=== PATIENT | female | born 1945 | race Caucasian/White ===

== ENCOUNTER → 2018-03-20 01:14 | Outpatient (CLI) | payer MEDICARE, SELFPAY ==
--- NOTE | 2018-03-20 10:37 | DI.REPORT_ITS ---
SYMPTOM/DIAGNOSIS: SCREENING, Z12.31 MAMMOGRAM: Mammograms were interpreted according to the usual protocol including computer analysis with CAD system, tomosynthesis and C view imaging. The breast tissue is of moderate radiodensity. There is no evidence of a mass. There are no suspicious calcifications. There has been no significant interval change when compared with prior images. SUMMARY: No evidence of malignancy, Category 1 -B. Yearly screening mammography is recommended. SA ASSESSMENT OF FINDINGS: Negative. Category 1. Patient will receive a letter notifying them of these results. BI-RADS category B. There are scattered areas of fibroglandular density.
[2018-03-20 12:20] LABS: Abs Immature Grans 0.01 k/cumm (0.0-0.09); Absolute Basophil Count 0.04 k/cumm (0.0-0.2); Absolute Eosinophil Count 0.23 k/cumm (0.0-0.7); Absolute Lymphocyte Count 1.91 k/cumm (1.2-3.4); Absolute Monocyte Count 0.71 k/cumm (0.11-0.7); Absolute Neutrophil Count 4.34 k/cumm (1.2-6.7); Basophils % 0.6; Eosinophils % 3.2; HCT 37.8 % (36.0-46.0); HGB 12.2 g/dL (12.0-15.5); Immature Grans % 0.1; Lymphocytes % 26.4; Mean Corp. HGB Concentration 32.3 g/dL (32.0-36.0); Mean Corpuscular Hemoglobin 29.2 pg (27.0-33.0); Mean Corpuscular Volume 90.4 fL (80-95); Mean Platelet Volume 10.1 fL (8.0-11.0); Monocytes % 9.8; Neutrophils % 59.9; Platelet Count 280 x1000/uL (130-400); RBC 4.18 m/cumm (4.00-5.20); RBC Distribution Width 14.3 % (11.7-14.6); White Blood Cell Count 7.24 k/cumm (4.4-10.8)
[2018-03-20 12:26] LABS: Bilirubin Negative (Negative); Blood Negative (Negative); Clarity Clear; Glucose Negative (Negative); Ketones Negative (Negative); Leukocyte Esterase Trace (Negative); Nitrite Negative (Negative); Urobilinogen 0.2 EU/dL (Up TO 0.2); pH 6.5 (5-8)
[2018-03-20 12:30] LABS: Hemoglobin A1C 5.9 % (4.5-6.2)
[2018-03-20 12:38] LABS: Bacteria Few HPF (Negative); C & S Indicated? No/Sq. Contamination; Casts Negative LPF (Negative); Crystals Negative HPF (Negative); Epithelial Cells Many HPF (Negative); Mucus Moderate (Negative); RBC Negative (0-2); WBC 0-2 HPF (0-5)
[2018-03-20 13:33] LABS: ALT 22 U/L (12-78); AST 21 U/L (15-37); Albumin 3.6 g/dL (3.4-5.0); Alkaline Phosphatase 89 U/L (46-116); Anion Gap 6.8 mmol/L (3-11); BUN 11 mg/dL (7-18); Bilirubin, Total 0.3 mg/dL (0.2-1.0); CO2 29.2 mmol/L (21.0-32.0); CREATININE 0.88 mg/dL (0.55-1.02); Calcium 8.7 mg/dL (8.5-10.1); Chloride 101 mmol/L (98-107); Folate 15.4 ng/mL (8.6-20.0); Glucose 87 mg/dL (70-100); Potassium 4.6 mmol/L (3.5-5.1); Sodium 137 mmol/L (136-145); TSH (W/Ref FT4) 1.96 uIU/mL (0.358-3.74); Total Protein 6.7 g/dL (6.4-8.2)
== END ==
PROVIDERS: PCP Family Medicine; Visit Provider Family Medicine
DX: Z12.31 Encounter for screening mammogram for malignant neoplasm of breast (principal); E78.00 Pure hypercholesterolemia, unspecified; F32.9 Major depressive disorder, single episode, unspecified; R63.4 Abnormal weight loss; G47.00 Insomnia, unspecified; J21.9 Acute bronchiolitis, unspecified; K59.00 Constipation, unspecified; Z79.899 Other long term (current) drug therapy
CPT/HCPCS: 77063; 77067; 80053; 81003; 81015; 82746; 83036; 84443; 85025

== ENCOUNTER → 2018-05-01 08:59 | Outpatient (BNVA) | payer MEDICARE, SELFPAY | PROVIDERS: PCP Family Medicine; Visit Provider Student in an Organized Health Care Education/Training Program | DX: Z47.89 Encounter for other orthopedic aftercare (principal); M75.121 Complete rotator cuff tear or rupture of right shoulder, not specified as traumatic | CPT/HCPCS: 99213 ==

== ENCOUNTER 2018-08-07 11:35 | Outpatient (CLI) | payer MEDICARE, SELFPAY ==
[2018-08-07 12:59] LABS: Abs Immature Grans 0.04 k/cumm (0.0-0.09); Absolute Basophil Count 0.04 k/cumm (0.0-0.2); Absolute Eosinophil Count 0.12 k/cumm (0.0-0.7); Absolute Lymphocyte Count 1.97 k/cumm (1.2-3.4); Absolute Monocyte Count 1.35 k/cumm (0.11-0.7); Absolute Neutrophil Count 6.99 k/cumm (1.2-6.7); Basophils % 0.4; Eosinophils % 1.1; HCT 41.4 % (36.0-46.0); HGB 13.3 g/dL (12.0-15.5); Immature Grans % 0.4; Lymphocytes % 18.7; Mean Corp. HGB Concentration 32.1 g/dL (32.0-36.0); Mean Corpuscular Hemoglobin 28.6 pg (27.0-33.0); Mean Platelet Volume 10.3 fL (8.0-11.0); Monocytes % 12.8; Neutrophils % 66.6; Platelet Count 281 x1000/uL (130-400); RBC 4.65 m/cumm (4.00-5.20); RBC Distribution Width 14.2 % (11.7-14.6); White Blood Cell Count 10.51 k/cumm (4.4-10.8)
[2018-08-07 13:18] LABS: ALT 26 U/L (12-78); AST 23 U/L (15-37); Albumin 3.3 g/dL (3.4-5.0); Alkaline Phosphatase 93 U/L (46-116); Anion Gap 8.6 mmol/L (3-11); BUN 14 mg/dL (7-18); Bilirubin, Total 0.3 mg/dL (0.2-1.0); CO2 30.4 mmol/L (21.0-32.0); CREATININE 0.85 mg/dL (0.55-1.02); Calcium 8.8 mg/dL (8.5-10.1); Chloride 95 mmol/L (98-107); Glucose 85 mg/dL (70-100); Potassium 4.3 mmol/L (3.5-5.1); Sodium 134 mmol/L (136-145); TSH (W/Ref FT4) 2.16 uIU/mL (0.358-3.74); Total Protein 6.5 g/dL (6.4-8.2)
[2018-08-07 14:43] LABS: Bilirubin Negative (Negative); Blood Negative (Negative); Clarity Clear; Glucose Negative (Negative); Ketones Negative (Negative); Leukocyte Esterase Negative (Negative); Nitrite Negative (Negative); Specific Gravity 1.015 (1.005-1.025); Urobilinogen 0.2 EU/dL (Up TO 0.2); pH 8.5 (5-8)
[2018-08-08 06:13] LABS: Vitamin D 25 Total 62.3 ng/ml (30-100)
== END 2018-08-07 11:55 ==
PROVIDERS: PCP Family Medicine; Visit Provider Family Medicine
DX: R53.83 Other fatigue (principal); R10.9 Unspecified abdominal pain; R39.11 Hesitancy of micturition; Z79.52 Long term (current) use of systemic steroids; F32.9 Major depressive disorder, single episode, unspecified
CPT/HCPCS: 36415; 80053; 82306; 81003; 84443; 85025

== ENCOUNTER 2018-08-09 07:26 | Outpatient (CLI) | payer MEDICARE, SELFPAY | END 2018-08-09 07:46 | PROVIDERS: PCP Family Medicine; Visit Provider Family Medicine | DX: R69 Illness, unspecified (principal) ==

== ENCOUNTER 2018-08-09 07:27 | Outpatient (CLI) | payer MEDICARE, SELFPAY ==
--- NOTE | 2018-08-09 07:31 | DI.RAD_ITS ---
SYMPTOM/DIAGNOSIS: FATIGUE, BRONCHIOLITIS, ABD PAIN, R53.83, J21.9, R10.9 PA AND LATERAL CHEST: Pulmonary hyperinflation is demonstrated. There is no evidence of an infiltrate, mass or pleural effusion. The heart is not enlarged. The hilar structures, mediastinum and tracheal air column are intact. Note is incidentally made of mild degenerative changes involving the dorsal spine. SUMMARY: No evidence of acute cardiopulmonary disease.
--- NOTE | 2018-08-09 08:00 | DI.US_ITS ---
SYMPTOM/DIAGNOSIS: ABD PAIN, FATIGUE R10.9, ABD PAIN, R53.83 ABDOMINAL ULTRASOUND: The aorta and vena cava are normal. The liver is intact. The gallbladder is intact. There is no evidence of cholelithiasis or pericholecystic fluid or ductal dilatation. The pancreas and spleen are normal. The kidneys are unremarkable. The right kidney measures 9.4. The left kidney 9.4 cm There is no evidence of abdominal free fluid or a mass. SUMMARY: Normal abdominal ultrasound.
== END 2018-08-09 07:47 ==
PROVIDERS: PCP Family Medicine; Visit Provider Family Medicine
DX: R10.9 Unspecified abdominal pain (principal); R53.83 Other fatigue; J21.9 Acute bronchiolitis, unspecified
CPT/HCPCS: 71046; 76700

== ENCOUNTER 2019-02-27 02:23 | Outpatient (CLI) | payer MEDICARE, SELFPAY ==
[2019-02-27 14:43] LABS: ALT 23 U/L (12-78); AST 20 U/L (15-37); Albumin 3.7 g/dL (3.4-5.0); Alkaline Phosphatase 103 U/L (46-116); Anion Gap 8.4 mmol/L (3-11); BUN 15 mg/dL (7-18); Bilirubin, Total 0.5 mg/dL (0.2-1.0); CO2 29.6 mmol/L (21.0-32.0); CREATININE 0.83 mg/dL (0.55-1.02); Calcium 9.1 mg/dL (8.5-10.1); Chloride 101 mmol/L (98-107); Glucose 83 mg/dL (70-100); Potassium 4.5 mmol/L (3.5-5.1); Sodium 139 mmol/L (136-145); Total Protein 6.8 g/dL (6.4-8.2)
== END 2019-02-27 02:43 ==
PROVIDERS: PCP Family Medicine; Visit Provider Family Medicine
DX: R63.4 Abnormal weight loss (principal)
CPT/HCPCS: 36415; 80053

== ENCOUNTER 2019-05-27 08:51 | Emergency (ER) | payer MEDICARE, SELFPAY ==
[2019-05-27 08:54] VITALS: BP 133/86; PULSE 65; RESP 16; TEMP 36.5; O2SAT 100
[2019-05-27] MEDS: Cephalexin 500 MG CAP PO (09:27)
--- NOTE | 2019-05-27 09:28 | W.ED.GENAD ---
Discharge Plan Disposition Patient Disposition: HOME Condition: Stable Discharge Details Chief Complaint: Cellulitis Clinical Impression: Abscess of right index finger Primary Care Provider: Carrie Mejias ED Provider: Nicholas Macario Home Meds and New Rx's Prescriptions: New cephalexin [Keflex] 500 mg capsule 500 mg PO QID 7 Days Qty: 28 RF: 0 No Action aspirin [Aspirin Low-Strength] 81 mg tablet,chewable 81 mg PO DAILY RF: 0 Premarin 0.625 mg/gram cream 1 applic VG twice weekly PRN (Reason: vaginal dryness) Qty: 30 RF: 5 fluconazole 150 mg tablet 150 mg PO QWEEK Qty: 13 RF: 1 Shingrix Adjuvant Component-PF suspension 1 ml IM ONCE Qty: 0.5 RF: 1 zinc gluconate 50 mg tablet 50 mg PO DAILY RF: 0 cholecalciferol (vitamin D3) 4,000 unit capsule 4,000 unit PO DAILY RF: 0 mirtazapine 15 mg tablet 15 mg PO DAILY Qty: 30 RF: 11 multivitamin [One Daily] 1 EACH tablet 1 tab PO DAILY RF: 0 omega-3 fatty acids-fish oil 1 EACH capsule 1 cap PO DAILY RF: 0 PEAK FLOW METER RF: 0 meclizine 25 MG tablet 50 mg PO Q6H PRN Qty: 30 RF: 0 Narcan 4 MG spray,non-aerosol 4 mg NS PRN Qty: 2 RF: 0 polyethylene glycol 1000(bulk) 500 GM powder 17 gm PO DAILY PRNQty: 500 RF: 12 nystatin 60 GM powder 0 Topical BID Qty: 60 RF: 12 acetaminophen [Acetaminophen Extra Strength] 500 mg tablet 1,000 mg PO TID PRN PRN (Reason: pain) Qty: 100 RF: 6 oxybutynin chloride 10 mg tablet extended release 24hr 10 mg PO DAILY Qty: 90 RF: 12 ibuprofen 600 mg tablet 600 mg PO Q8H PRN PRN (Reason: pain) Qty: 60 RF: 6 fluticasone propion-salmeterol [Advair Diskus] 250-50 mcg/dose blister with device 1 inh Inhalation BID Qty: 3 RF: 4 fluoxetine [Prozac] 40 mg capsule 40 mg PO DAILY Qty: 90 RF: 4 Flovent HFA 110 mcg/actuation HFA aerosol inhaler 110 mcg Inhalation BID Qty: 3 RF: 4 omeprazole 20 mg tablet,delayed release (DR/EC) 20 mg PO DAILY Qty: 90 RF: 12 Estring 2 mg (7.5 mcg /24 hour) ring 1 vag ring VG Q3MOS Qty: 1 RF: 1 albuterol sulfate [ProAir HFA] 90 mcg/actuation HFA aerosol inhaler 2 puff Inhalation Q4H PRN Qty: 1 RF: 12 Discharge Instructions Instructions: Abscess (ED) Additional Instructions: You may do warm water soaks 3 times a day for the next 3 days. Take antibiotics as prescribed and for the full course/until all meds are gone. You may use [id number] acetaminophen as needed for pain. If not improving in the next 24 to 48 hours or for any significant worsening of symptoms please return immediately to the emergency department for reassessment. Otherwise you may follow-up with your primary care provider as needed Referrals: Carrie Mejias MD, [place] [Primary Care Provider] - Medical Decision Making Patient presenting to the emergency department for chief come concern of right index finger infection. Patient does state that she has been gardening recently and wearing gloves and last night she noticed her right index finger starting to swell and become reddened. Patient initially thought this was arthritis but had never had a flareup like this before. This morning finger has become more swollen and increased and redness causing her to come to the emergency department. Patient denies any other symptoms. Physical exam shows a fluctuant abscess to the superficial nature over the distal index finger mostly over the DIP. This does not seem to be involving the nail as much as the superficial soft tissue there. Patient does have an area that appears like it is getting ready to drain. I am concerned for a abscess and so did discuss with patient drainage of this. Patient was agreeable to this. 3 mL's of 1% lidocaine were utilized to perform a ring block. When appropriate level of anesthetic was achieved finger was cleansed with Betadine and sterile technique was utilized to drain fluctuant area with 18-gauge needle. Less than 1 mL was removed from the area that was a mix of purulent drainage and blood. Abscess group was sent. Patient placed on Keflex for 1 week. Return precautions discussed. After discussion of diagnosis and plan of care patient has no further needs, questions, or concerns and states clear understanding to return to the emergency department for any worsening symptoms. HPI General Mode of arrival: ambulatory. Date/Time Provider Initiated Documentation: 05/27/19 08:52. Limitations to Documentation: no limitations. Information obtained by: patient and RN notes reviewed. History of Present Illness 74 year old F presents to the emergency department with the chief complaint of Right index finger infection, described as moderate, with intensity rated at 8. Quality is described as aching, and is localized to the right and upper extremity. Patient started experiencing this day(s) (1) and it has been constant. No relieving factors improve symptom(s), No exacerbating factors reported . Patient notes no other symptoms.. Patient did receive the following treatments prior to arrival, none Related Data Home Medications Medication Instructions Recorded Confirmed Peak Flow Meter 10/29/12 03/25/19 multivitamin [One Daily] 1 tab PO DAILY 10/29/12 05/27/19 omega-3 fatty acids-fish oil 1 cap PO DAILY 10/29/12 05/27/19 meclizine 50 mg PO Q6H PRN #30 tab-cap 07/14/13 05/27/19 naloxone [Narcan Nasal [place]] 4 mg NS PRN #2 spray 11/12/17 05/27/19 nystatin 0 TOPICAL BID #60 gm 11/15/17 03/25/19 polyethylene glycol 1000(bulk) 17 gm PO DAILY PRN #500 gm 11/15/17 05/27/19 acetaminophen 500 mg tablet 1,000 mg PO TID PRN PRN #100 tab 05/22/18 05/27/19 aspirin 81 mg chewable tablet 81 mg PO DAILY tab 06/18/18 05/27/19 oxybutynin chloride 10 mg 10 mg PO DAILY #90 tab-cap 08/28/18 05/27/19 tablet,extended release 24 hr cholecalciferol (vitamin D3) 4,000 4,000 unit PO DAILY 09/04/18 05/27/19 unit capsule mirtazapine 15 mg tablet 15 mg PO DAILY #30 tab 09/04/18 05/27/19 zinc gluconate 50 mg tablet 50 mg PO DAILY tab 09/04/18 05/27/19 ibuprofen 600 mg tablet 600 mg PO Q8H PRN PRN #60 tab 11/19/18 05/27/19 fluoxetine 40 mg capsule 40 mg PO DAILY #90 cap 01/01/19 05/27/19 fluticasone 250 mcg-salmeterol 50 1 inh INHALATION BID #3 each 01/01/19 05/27/19 mcg/dose blistr powdr for inhalation fluticasone propionate 110 110 mcg INHALATION BID #3 inhaler 01/01/19 05/27/19 mcg/actuation HFA aerosol inhaler adjuvant AS01B (PF)vial 1 of 2 1 ml IM ONCE #0.5 ml 01/20/19 05/27/19 conjugated estrogens 0.625 mg/gram 1 applic VG twice weekly PRN #30 gm 01/20/19 05/27/19 vaginal cream fluconazole 150 mg tablet 150 mg PO QWEEK #13 tab 01/20/19 05/27/19 omeprazole 20 mg tablet,delayed 20 mg PO DAILY #90 tab-cap 02/06/19 05/27/19 release estradiol 1 vag ring VG Q3MOS #1 each 03/06/19 05/27/19 albuterol sulfate 90 mcg/actuation 2 puff INHALATION Q4H PRN #1 05/01/19 05/27/19 aerosol inhaler canister cephalexin [Keflex] 500 mg PO QID 7 Days #28 cap 05/27/19 Previous Rx's Medication Instructions Recorded naloxone [Narcan Nasal [place]] 4 mg NS PRN #2 spray 11/12/17 acetaminophen 500 mg tablet 1,000 mg PO TID PRN PRN #100 tab 05/22/18 oxybutynin chloride 10 mg 10 mg PO DAILY #90 tab-cap 08/28/18 tablet,extended release 24 hr mirtazapine 15 mg tablet 15 mg PO DAILY #30 tab 09/04/18 ibuprofen 600 mg tablet 600 mg PO Q8H PRN PRN #60 tab 11/19/18 fluoxetine 40 mg capsule 40 mg PO DAILY #90 cap 01/01/19 fluticasone 250 mcg-salmeterol 50 1 inh INHALATION BID #3 each 01/01/19 mcg/dose blistr powdr for inhalation fluticasone propionate 110 110 mcg INHALATION BID #3 inhaler 01/01/19 mcg/actuation HFA aerosol inhaler adjuvant AS01B (PF)vial 1 of 2 1 ml IM ONCE #0.5 ml 01/20/19 conjugated estrogens 0.625 mg/gram 1 applic VG twice weekly PRN #30 gm 01/20/19 vaginal cream fluconazole 150 mg tablet 150 mg PO QWEEK #13 tab 01/20/19 omeprazole 20 mg tablet,delayed 20 mg PO DAILY #90 tab-cap 02/06/19 release estradiol 1 vag ring VG Q3MOS #1 each 03/06/19 albuterol sulfate 90 mcg/actuation 2 puff INHALATION Q4H PRN #1 05/01/19 aerosol inhaler canister cephalexin [Keflex] 500 mg PO QID 7 Days #28 cap 05/27/19 Allergies Allergy/AdvReac Type Severity Reaction Status Date / Time tuberculin, purified protein Allergy Unknown Unverified 05/27/19 08:59 deriva bupropion AdvReac AGITATION Unverified 03/25/19 13:24 codeine AdvReac NAUSEA/VOMI Unverified 03/25/19 13:24 TING General Stated Complaint: Cellulitis MEI: 4 Review of Systems Constitutional Constitutional: Denies chills and Denies fever(s) Musculoskeletal Musculoskeletal: Reports as per HPI, Reports joint swelling and Reports limited range of motion Integumentary/Breasts Skin/Breast: Reports erythema and Denies rash FORMERLY [facility], 1928–1983 Medical History Abnormal laboratory test (Resolved) decreased cortisol w/retesting normal Atrophic vaginitis (Chronic) Benign neoplasm of skin of perineum (Resolved) benign lesion-resolved Bronchiolitis (Chronic) 02/11/16-[facility] 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 AVOID AZITHROMAX - SEE NOTE VJ 06/30/16 SOB Bruising (Chronic 02/22/15) Complete tear of right rotator cuff (Chronic 12/12/17) Constipation (Chronic 08/10/14) Depressive disorder Depressive disorder (Chronic) Ear problem (Resolved 12/03/07) PERFERATED EARDRUM Fatigue (Chronic 07/12/02) Multiple extensive work ups without etiology Hypercholesterolemia (Chronic) Insomnia Insomnia (Chronic) Low back pain Low back pain (Chronic 01/02/17) Malignant neoplasm of cervix uteri (Resolved) hyst;single ovary remains 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) Primary malignant neoplasm of cervix (Resolved) Seborrheic keratoses (Chronic 01/11/16) LEFT CHEEK, SCAPULA Tear of left supraspinatus tendon (Chronic 09/04/17) mri 09/03/17 Urinary frequency (Chronic 08/17/17) Weight loss (Chronic 03/12/18) Surgical History Abdominal hysterectomy single ovary remains Appendectomy Colonoscopy - MAC (~2006) Colonoscopy - MAC (10/05/17) H/O bilateral salpingo-oophorectomy (Resolved) HERNIA REPAIR Ligation of fallopian tube BSO Open Carpal Tunnel release S/P abdominal hysterectomy (Resolved) one ovary remains S/P appendectomy (Resolved) S/P carpal tunnel release (Resolved) S/P hernia repair (Resolved) Status post abdominal hysterectomy (Resolved) Status post appendectomy (Resolved) Status post carpal tunnel release (Resolved) Status post hernia repair (Resolved) Family History Mother , 2 Emphysema of lung Stroke COPD (chronic obstructive pulmonary disease) Asthma Father , 85 Lung cancer Brother , 85 COPD (chronic obstructive pulmonary disease) Lung cancer Maternal Grandfather No problems noted. Paternal Grandfather No problems noted. Maternal Grandmother No problems noted. Paternal Grandmother No problems noted. Brother , 70 Diabetes Colon cancer Sister , 80 Diabetes Lung cancer Sister , 81 Cancer Social History Smoking/Tobacco Use Status: Never Second Hand Exposure: No Alcohol Intake: current Alcohol Intake frequency: a few times a week Alcohol type: wine Drug use: Never Substance use type: does not use Household members: spouse Housing: house Pets and animals: Yes Pets and animals: cat(s) Sexually active: Yes Do you think of yourself as: straight/heterosexual Current gender identity: decline to answer What is your relationship status?: How often do you talk on the phone with friends or family?: decline to answer How often do you get together with friends or relatives?: twice per week How often do you attend rastafarian or latter day services?: decline to answer Do you belong to any clubs or organized social groups?: no Panel score (0-1 are the most socially isolated patients): 1 What type of physical activity do you participate in: walking Duration: decline to answer Frequency: 3-4 times per week Annelise/Gnosticist: Gnosticist Special annelise needs: No Seatbelt use: always Drive intox or ride w/intox charter coach driver: No Do you feel safe at home: Yes Do you feel safe in your relationship?: Yes Exam Const General: cooperative, no acute distress and not ill appearing Orientation: alert, awake and oriented x3 Resp Effort & Inspection: normal respiratory effort, able to speak in complete sentences and no respiratory distress Cardio Rate: regular rate Rhythm: regular rhythm Extrem Right upper extremity: hand Details: normal capillary refill, abnormal ROM of finger Details: pain with active ROM Location: of the 2nd digit and pain with passive ROM Location: of the 2nd digit, warmth Location: of the 2nd digit Location: at the DIP joint, swelling Location: of the 2nd digit Location: at the DIP joint and other (Fluctuant abscess with area of open drainage to superficial dorsal aspect of distal finger mostly over DIP) Course Vital Signs Vital signs: Vital Signs Temperature 36.5 C 05/27/19 08:54 Pulse 65 05/27/19 08:54 Respiratory Rate 16 05/27/19 08:54 Blood Pressure 133/86 05/27/19 08:54 Pulse Oximetry 100 05/27/19 08:54 Temperature 36.5 C 05/27/19 08:54 Temperature Source Tympanic 05/27/19 08:54 Pulse 65 05/27/19 08:54 Respiratory Rate 16 05/27/19 08:54 Respiratory Effort Non-Labored 05/27/19 08:58 Blood Pressure 133/86 05/27/19 08:54 Blood Pressure Position Sitting 05/27/19 08:54 Pulse Oximetry 100 05/27/19 08:54 Oxygen Delivery Method Room Air 05/27/19 08:54 Oxygen Flow Rate 0 05/27/19 08:54 Pain Level 8 05/27/19 08:54 Lab/Test Results Lab/Test Results: 05/27/19 09:27 Finger - Right First Digit Abscess Culture - Pending 05/27/19 09:27 Finger - Right First Digit Gram Stain - Pending
[2019-05-27 09:37] VITALS: BP 133/86; PULSE 65; RESP 16; TEMP 36.5; O2SAT 100
== END 2019-05-27 09:31 | disposition home or self-care (01) ==
PROVIDERS: Emergency Provider Nurse Practitioner Family; PCP Family Medicine
DX: L02.511 Cutaneous abscess of right hand (principal)
CPT/HCPCS: 99283; 87070; 87205

== ENCOUNTER 2019-11-12 14:32 | Outpatient (CLI) | payer MEDICARE, SELFPAY ==
[2019-11-15 09:54] LABS: SARS-CoV-2 RNA Undetected (Undetected); SARS-CoV-2 Specimen Source Nasopharynx
== END 2019-11-12 14:52 ==
PROVIDERS: PCP Family Medicine; Visit Provider Family Medicine
DX: Z03.818 Encounter for observation for suspected exposure to other biological agents ruled out (principal)
CPT/HCPCS: U0003

== ENCOUNTER 2020-05-06 02:05 | Outpatient (CLI) | payer MEDICARE, SELFPAY ==
--- NOTE | 2020-05-06 07:15 | DI.DEXA_ITS ---
EXAM: XR DEXA BONE DENSITY W/WO HALLE CLINICAL HISTORY: osteoporosis,m81.0 TECHNIQUE: COMPARISON: Prior examination is dated 10/28/2007 FINDINGS: Lateral Spine Image: Unremarkable. No compression deformities identified. Left hip: Total T-Score: -1.6. This compares with a 0.0 on the prior examination. Total Z-Score: 0.1 T- and Z-scores: Findings consistent with osteopenia and increased fracture risk. Lumbar Spine: Total T-Score: 0.6. This compares with a 0.3 on the prior examination. Total Z-Score: 2.9 T- and Z-scores: Within normal limits. IMPRESSION: No evidence of osteoporosis.
--- NOTE | 2020-05-06 09:35 | DI.MAMMO_ITS ---
EXAM: MG MAMMO SCREENING CLINICAL HISTORY: screening,z12.39 TECHNIQUE: Bilateral full field digital CC and MLO mammographic images were obtained with 3D tomosyn thesis and utilizing computer aided detection (CAD). COMPARISON: Available for comparison. FINDINGS: Masses/Architectural Distortion: None seen. Microcalcifications: No suspicious pleomorphic-type are seen. Skin Thickening/Nipple Retraction: None. IMPRESSION: 1. No significant interval change with no specific features of malignancy noted. 2. Unless there is more urgent need, screening mammography is recommended, as per [employer] guidelines. BI-RADS Category 1 - Negative Breast Density - Category B - Scattered areas of fibroglandular density A negative radiographic report should not delay biopsy if a dominant or clinically suspicious mass is present. Up to ten percent of cancers are not identified on mammography. A negative report may reinforce clinical impression. Adenosis and dense breasts may obscure an underlying neoplasm. False positive reports average 6 to 10%. Patient will receive a letter notifying them of these results.
== END 2020-05-06 02:25 ==
PROVIDERS: PCP Family Medicine; Visit Provider Family Medicine
DX: Z12.31 Encounter for screening mammogram for malignant neoplasm of breast (principal); M81.0 Age-related osteoporosis without current pathological fracture
CPT/HCPCS: 77063; 77067; 77080

== ENCOUNTER 2020-08-20 09:01 | Outpatient (CLI) | payer MEDICARE, SELFPAY ==
[2020-08-21 15:32] LABS: COVID-19 RT-PCR UVMMC Result Negative (Negative)
== END 2020-08-20 09:21 ==
PROVIDERS: PCP Family Medicine; Visit Provider Family Medicine
DX: Z20.828 Contact with and (suspected) exposure to other viral communicable diseases (principal)
CPT/HCPCS: U0003

== ENCOUNTER 2021-03-21 13:01 | Outpatient (REF) | payer MEDICARE, SELFPAY ==
[2021-03-21 19:33] LABS: Abs Immature Grans 0.03 10^3/uL (0.0-0.06); Absolute Basophil Count 0.07 10^3/uL (0.0-0.2); Absolute Eosinophil Count 0.26 10^3/uL (0.0-0.7); Absolute Lymphocyte Count 1.77 10^3/uL (1.2-3.4); Absolute Monocyte Count 0.74 10^3/uL (0.1-0.8); Absolute Neutrophil Count 3.89 10^3/uL (1.2-6.7); Eosinophils % 3.8; HCT 42.9 % (36.0-46.0); HGB 13.3 g/dL (11.2-15.7); Immature Grans % 0.4; Lymphocytes % 26.2; MCH 27.3 pg (27.0-33.0); MCV 87.9 fL (80-95); Monocytes % 10.9; Neutrophils % 57.7; Nucleated RBC 0 %; Platelet Count 286 10^3/uL (130-400); RBC 4.88 10^6/uL (3.93-5.22); RDW 13.7 % (11.7-14.6); RDW-SD 44.2 fL; WBC 6.76 10^3/uL (4.4-10.8)
[2021-03-21 19:34] LABS: Bilirubin Negative (Negative); Blood Negative (Negative); Clarity Sl Cloudy (Clear); Glucose Negative (Negative); Ketones Negative (Negative); Leukocyte Esterase Trace (Negative); Nitrite Negative (Negative); Urobilinogen 0.2 EU/dL (Up TO 0.2); pH 6.5 (5-8)
[2021-03-21 19:43] LABS: ALT 19 U/L (14-59); AST 20 U/L (15-37); Albumin 3.6 g/dL (3.4-5.0); Alkaline Phosphatase 100 U/L (46-116); Anion Gap 6.2 mmol/L (3-11); BUN 13 mg/dL (7-18); Bilirubin, Total 0.3 mg/dL (0.2-1.0); CO2 29.8 mmol/L (21.0-32.0); CREATININE 0.8 mg/dL (0.55-1.02); Calcium 8.9 mg/dL (8.5-10.1); Chloride 101 mmol/L (98-107); Glucose 91 mg/dL (74-106); Potassium 4.4 mmol/L (3.5-5.1); Sodium 137 mmol/L (136-145); Total Protein 6.8 g/dL (6.4-8.2)
[2021-03-21 19:46] LABS: Bacteria Many HPF (Negative); C & S Indicated? C&S Done As Ordered; Casts Negative LPF (Negative); Crystals Negative HPF (Negative); Epithelial Cells Few HPF (Negative); Mucus Negative (Negative); RBC 0-2 HPF (0-2)
[2021-03-22 14:57] LABS: COVID-19 RT-PCR UVMMC Result Negative (Negative)
== END 2021-03-21 13:02 | disposition home or self-care (01) ==
LOC: LBN 13:01
PROVIDERS: PCP Family Medicine; Visit Provider Nurse Practitioner Family
DX: R53.83 Other fatigue (principal); N39.0 Urinary tract infection, site not specified; Z20.822 Contact with and (suspected) exposure to COVID-19
CPT/HCPCS: 80053; U0003; U0005; 81003; 81015; 85025; 87086

== ENCOUNTER 2021-03-21 19:44 | Observation (INO) | payer MEDICARE, SELFPAY ==
[2021-03-21] VITALS (9 sets, daily range): BP systolic 133–169; BP diastolic 68–111; PULSE 59–71; RESP 12–19; TEMP 36.2–36.4; O2SAT 95–98
--- NOTE | 2021-03-21 20:00 | DI.CT_ITS ---
Exam(s) CT ABDOMEN PELVIS W EXAM: CT ABDOMEN PELVIS W CLINICAL HISTORY: lower abdomen pain and n/v. TECHNIQUE: Imaging Protocol: Axial computed tomography images with coronal and sagittal reformatted images were created and reviewed CONTRAST MATERIAL: Intravenous: Omnipaque 350 Contrast volume:100 ml Oral: / no COMPARISON: CT CHEST FOR PULMONARY EMBOLUS from 01/04/2016 FINDINGS: ABDOMEN: Lung Bases: Scarring right lower lobe. Liver: Normal density. No measurable mass. Gallbladder and biliary tract: No radiodense calculus or dilation. Pancreas: Moderately atrophic. Normal density, no abnormal calcifications or inflammatory process. Spleen: Normal. Kidneys: Normal size, contour and axis. No radiodense stones or obstructive uropathy. No masses seen. Adrenal glands: No masses seen. Abdominal Aorta: Abdominal portion non-dilated. Moderate atherosclerotic changes. Stomach: Distended with food and fluid. Duodenum unremarkable. PELVIS: Bladder: No gross wall thickening. No calculi.No focal mass. Bowel: No obstruction or bowel wall thickening. Status post appendectomy. Peritoneal cavity: No ascites, collection or mesenteric inflammatory response. Bones: Degenerative changes lumbar spine. Reproductive organs: Status post hysterectomy. Questionable vaginal wall thickening. Clinical corre lation is recommended. Lymph nodes: Unremarkable. Impression: Gastric distension. Unremarkable small bowel and colon. Questionable vaginal wall thickening. Clinical correlation is recommended. RADIATION DOSE DELIVERED: 677.82mGy.cm Total DLP DATA REPOSITORY: All CT scans at this facility are submitted to the National Radiology Data Registry (NRDR) Dose Index Registry (DIR) with the [employer] (ACR). RADIATION OPTIMIZATION: All CT scans at this facility use at least one of these dose optimization te chniques: automated exposure control; mA and/or kV adjustment per patient size (includes targeted exa ms where dose is matched to clinical indication); or iterative reconstruction.
--- NOTE | 2021-03-21 20:11 | ED.GENADUL_ITS ---
Discharge Plan Disposition Condition: Stable Discharge Details Chief Complaint: GenMedical Clinical Impression: Hyponatremia, Abdominal pain Primary Care Provider: Carrie Mejias ED Provider: Mj Rowell [place] Meds and New Rx's Prescriptions: No Action aspirin [Adult Low Dose Aspirin] 81 mg tablet,delayed release (DR/EC) 81 mg PO DAILY RF: 0 mirtazapine 15 mg tablet 15 mg PO DAILY RF: 0 amoxicillin-pot clavulanate [Augmentin] 875-125 mg tablet 1 tab PO BID Qty: 14 RF: 0 melatonin 5 mg capsule 5 mg PO HS PRN (Reason: insomnia) Qty: 30 RF: 1 fluticasone propionate [Flonase Allergy Relief] 50 mcg/actuation spray,suspension 1 spray intranasal DAILY Qty: 16 RF: 0 cholecalciferol (vitamin D3) 4,000 unit capsule 4,000 unit PO DAILY RF: 0 fluconazole 150 mg tablet 150 mg PO QWEEK PRNRF: 0 omega-3 fatty acids-fish oil 1 EACH capsule 1 cap PO DAILY RF: 0 PEAK FLOW METER RF: 0 meclizine 25 MG tablet 50 mg PO Q6H PRN Qty: 30 RF: 0 polyethylene glycol 1000(bulk) 500 GM powder 17 gm PO DAILY PRNQty: 500 RF: 12 albuterol sulfate [ProAir HFA] 90 mcg/actuation HFA aerosol inhaler 2 puff Inhalation Q4H PRN Qty: 1 RF: 12 estradiol [Yuvafem] 10 mcg tablet 10 mcg VG .3 times weekly Qty: 36 RF: 4 ibuprofen 600 mg tablet 600 mg PO Q8H PRN PRN (Reason: pain) Qty: 60 RF: 6 oxybutynin chloride 10 mg tablet extended release 24hr 10 mg PO DAILY Qty: 90 RF: 12 fluticasone propion-salmeterol [Advair Diskus] 250-50 mcg/dose blister with device 1 inh Inhalation BID Qty: 3 RF: 4 Flovent HFA 110 mcg/actuation HFA aerosol inhaler 110 mcg Inhalation BID Qty: 3 RF: 4 fluoxetine [Prozac] 40 mg capsule 40 mg PO DAILY Qty: 90 RF: 4 mirtazapine 15 mg tablet 15 mg PO DAILY Qty: 30 RF: 11 omeprazole 20 mg tablet,delayed release (DR/EC) 20 mg PO DAILY Qty: 90 RF: 12 acetaminophen [Acetaminophen Extra Strength] 500 mg tablet 1,000 mg PO TID PRN PRN (Reason: pain) Qty: 100 RF: 6 Discharge Instructions Additional Instructions: your repeat sodium level was normal stop taking the augmentin follow up with your primary care provider within 1 week if you feel more ill, have persistent vomit or severe worsening pain return to the emergency department Medical Decision Making 75 yo female with hx of hysterectomy and appendectomy, insomnia, hld, who started her first dose of augmentin today after being diagnosed with sinusitis, comes in with abdomen pain, n/v starting a few hours ago. She denies having this pain when she was seen at the medical center earlier. Denies chest pain, states when she has increase in pain it takes her breath away but denies shortness of breath otherwise. She does have tenderness throughout the lower abdomen no upper abdomen tenderness. Concern for diverticulitis vs small bowel obstruction, will obtain labs and ct to further evaluate. ct shows no acute findings and discussed non emergent findings with her which will need outpatient follow up, labs remarkable of sodium of 120 and was normal earlier today. She has been drinking a significant amount of water. Pain significantly improved, has mild pain to deep palpation to the right lower abdomen on exaxm. Spoke with hospitalist who will see the patient but asked a repeat bnp be drawn in the mean time to see if this sodium level is accurate Differential Diagnosis Differential Diagnosis: small bowel obstruction, colitis, diverticulitis Medical Records Medical records reviewed: Yes I reviewed the patient's medical records. Imaging Data Radiologic Study: Attestation: I personally reviewed and interpreted this imaging study as follows: Imaging: CT Scan Radiologist's impression: IMPRESSION: 1. New area or lesion of diminished attenuation/enhancement about falciform ligament. Correlate with liver ultrasound. 2. Prominent vagina with irregularity of mucosal surface. Correlate clinically and with ultrasound. 3. Pancreatic atrophy. Lab Data Lab results reviewed: Yes I reviewed the patient's lab results. HPI General Mode of arrival: wheelchair . Date/Time Provider Initiated Documentation: 03/21/21 19:51 . Limitations to Documentation: no limitations . Information obtained by: patient . History of Present Illness 75 year old F presents to the emergency department with the chief complaint of abdomen pain, described as moderate and severe, Quality is described as sharp, and is localized to the abdomen. Patient reports no radiation. Patient started experiencing this hour(s) (4) and it has been constant. No relieving factors improve symptom(s), No exacerbating factors reported . Patient notes nausea/vomiting. Related Data Home Medications Medication Instructions Recorded Confirmed Peak Flow Meter 10/29/12 03/21/21 omega-3 fatty acids-fish oil 1 cap PO DAILY 10/29/12 03/21/21 meclizine 50 mg PO Q6H PRN #30 tab-cap 07/14/13 03/21/21 polyethylene glycol 1000(bulk) 17 gm PO DAILY PRN #500 gm 11/15/17 03/21/21 cholecalciferol (vitamin D3) 100 4,000 unit PO DAILY 09/04/18 03/21/21 mcg (4,000 unit) capsule fluconazole 150 mg tablet 150 mg PO QWEEK PRN tab 03/30/20 03/21/21 albuterol sulfate 90 mcg/actuation 2 puff INHALATION Q4H PRN #1 05/26/20 03/21/21 aerosol inhaler canister estradiol 10 mcg vaginal tablet 10 mcg VG .3 times weekly #36 tab 07/12/20 03/21/21 ibuprofen 600 mg tablet 600 mg PO Q8H PRN PRN #60 tab 07/12/20 03/21/21 oxybutynin chloride 10 mg 10 mg PO DAILY #90 tab-cap 07/12/20 03/21/21 tablet,extended release 24 hr fluoxetine 40 mg capsule 40 mg PO DAILY #90 cap 02/08/21 03/21/21 fluticasone 250 mcg-salmeterol 50 1 inh INHALATION BID #3 each 02/08/21 03/21/21 mcg/dose blistr powdr for inhalation fluticasone propionate 110 110 mcg INHALATION BID #3 inhaler 02/08/21 03/21/21 mcg/actuation HFA aerosol inhaler mirtazapine 15 mg tablet 15 mg PO DAILY #30 tab 02/08/21 03/21/21 omeprazole 20 mg tablet,delayed 20 mg PO DAILY #90 tab-cap 02/08/21 03/21/21 release acetaminophen 500 mg tablet 1,000 mg PO TID PRN PRN #100 tab 02/14/21 03/21/21 amoxicillin 875 mg-potassium 1 tab PO BID #14 tab 03/21/21 03/21/21 clavulanate 125 mg tablet aspirin 81 mg tablet,delayed 81 mg PO DAILY 03/21/21 03/21/21 release fluticasone propionate 50 1 spray INTRANASAL DAILY #16 g 03/21/21 03/21/21 mcg/actuation nasal spray,suspension melatonin 5 mg capsule 5 mg PO HS PRN #30 cap 03/21/21 03/21/21 mirtazapine 15 mg tablet 15 mg PO DAILY 03/21/21 03/21/21 Previous Rx's Medication Instructions Recorded albuterol sulfate 90 mcg/actuation 2 puff INHALATION Q4H PRN #1 05/26/20 aerosol inhaler canister estradiol 10 mcg vaginal tablet 10 mcg VG .3 times weekly #36 tab 07/12/20 ibuprofen 600 mg tablet 600 mg PO Q8H PRN PRN #60 tab 07/12/20 oxybutynin chloride 10 mg 10 mg PO DAILY #90 tab-cap 07/12/20 tablet,extended release 24 hr fluoxetine 40 mg capsule 40 mg PO DAILY #90 cap 02/08/21 fluticasone 250 mcg-salmeterol 50 1 inh INHALATION BID #3 each 02/08/21 mcg/dose blistr powdr for inhalation fluticasone propionate 110 110 mcg INHALATION BID #3 inhaler 02/08/21 mcg/actuation HFA aerosol inhaler mirtazapine 15 mg tablet 15 mg PO DAILY #30 tab 02/08/21 omeprazole 20 mg tablet,delayed 20 mg PO DAILY #90 tab-cap 02/08/21 release acetaminophen 500 mg tablet 1,000 mg PO TID PRN PRN #100 tab 02/14/21 amoxicillin 875 mg-potassium 1 tab PO BID #14 tab 03/21/21 clavulanate 125 mg tablet fluticasone propionate 50 1 spray INTRANASAL DAILY #16 g 03/21/21 mcg/actuation nasal spray,suspension melatonin 5 mg capsule 5 mg PO HS PRN #30 cap 03/21/21 Allergies Allergy/AdvReac Type Severity Reaction Status Date / Time tuberculin, purified protein Allergy Unknown Verified 03/21/21 20:09 deriva bupropion AdvReac AGITATION Verified 03/21/21 20:09 codeine AdvReac NAUSEA/VOMI Verified 03/21/21 20:09 TING General Stated Complaint: GenMedical MEI: 3 Review of Systems All systems reviewed & are unremarkable except as noted in HPI and below Constitutional Constitutional: Denies chills, Denies fever(s) and Denies weakness Cardiovascular Cardiovascular: Denies chest pain and Denies dyspnea Respiratory Respiratory: Denies cough and Denies dyspnea Musculoskeletal Musculoskeletal: Denies joint swelling Neurologic Neurologic: Denies weakness Psychiatric Psychiatric: Denies depression [facility] Medical History Abnormal laboratory test decreased cortisol w/retesting normal Atrophic vaginitis Benign neoplasm of skin of perineum benign lesion-resolved [facility]chiolitis 02/11/16-[facility] 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 AVOID AZITHROMAX - SEE NOTE VJ 06/30/16 SOB Bruising (02/22/15) Complete tear of right rotator cuff (12/12/17) Constipation (08/10/14) Depressive disorder Depressive disorder Ear problem (12/03/07) PERFERATED EARDRUM Fatigue (07/12/02) Multiple extensive work ups without etiology Hypercholesterolemia Insomnia Insomnia Low back pain Low back pain (01/02/17) Malignant neoplasm of cervix uteri hyst;single ovary remains 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) Primary malignant neoplasm of cervix Seborrheic keratoses (01/11/16) LEFT CHEEK, SCAPULA Tear of left supraspinatus tendon (09/04/17) mri 09/03/17 Urinary frequency (08/17/17) Weight loss (03/12/18) Surgical History Abdominal hysterectomy single ovary remains Appendectomy Colonoscopy - MAC (~2006) Colonoscopy - MAC (10/05/17) H/O bilateral salpingo-oophorectomy HERNIA REPAIR Ligation of fallopian tube BSO Open Carpal Tunnel release S/P abdominal hysterectomy one ovary remains S/P appendectomy S/P carpal tunnel release S/P hernia repair Status post abdominal hysterectomy Status post appendectomy Status post carpal tunnel release Status post hernia repair Family History Mother , 2 Emphysema of lung Stroke COPD (chronic obstructive pulmonary disease) Asthma Father , 85 Lung cancer Brother , 85 COPD (chronic obstructive pulmonary disease) Lung cancer Maternal Grandfather No problems noted. Paternal Grandfather No problems noted. Maternal Grandmother No problems noted. Paternal Grandmother No problems noted. Brother , 70 Diabetes Colon cancer Sister , 80 Diabetes Lung cancer Sister , 81 Cancer Social History Smoking/Tobacco Use Status: Never Second Hand Exposure: No Smoking risk assessment performed?: Yes Alcohol Intake: current Alcohol Intake frequency: holidays/special occasions only Drug use: Never Substance use type: does not use Caregiver/Support person: No Household members: spouse Housing: house Do you need help understanding health information?: Often Pets and animals: Yes Pets and animals: cat(s) Sexually active: Yes Do you think of yourself as: straight/heterosexual Current gender identity: female What is your relationship status?: How often do you talk on the phone with friends or family?: twice per week How often do you get together with friends or relatives?: once per week How often do you attend sabianist or oriental orthodox services?: decline to answer Do you belong to any clubs or organized social groups?: no Panel score (0-1 are the most socially isolated patients): 2 Duration: decline to answer Frequency: 3-4 times per week Annelise/Taoist: [employer] Special annelise needs: No Seatbelt use: always Drive intox or ride w/intox 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 Do you feel safe at home: Yes Do you feel safe in your relationship?: Yes Exam Const General: no acute distress Orientation: alert HENMT Head: normal to inspection Ears: external ears normal General nose exam: external nose normal Mouth: moist mucous membranes Eyes General: appearance normal, both eyes and all related structures Neck Neck: normal visual inspection Resp Effort & Inspection: normal respiratory effort and able to speak in complete sentences Cardio Rate: regular rate GI Palpation: soft and tender Skin General skin exam: no rashes or lesions noted Neuro General: patient alert and patient oriented x3 Extrem General: normal to inspection Psych Mental Status: mental status grossly normal Course Vital Signs Vital signs: Vital Signs Temperature 36.2 C L 03/21/21 19:55 Pulse 59 L 03/21/21 19:55 Respiratory Rate 18 03/21/21 19:55 Blood Pressure 169/89 H 03/21/21 19:55 Pulse Oximetry 96 03/21/21 19:55 Temperature 36.2 C L 03/21/21 19:55 Temperature Source Temporal Artery Scan 03/21/21 19:55 Pulse 59 L 03/21/21 19:55 Respiratory Rate 18 03/21/21 20:00 Respiratory Effort 03/21/21 20:00 Respiratory Depth Normal 03/21/21 20:00 Respiratory Pattern Normal 03/21/21 20:00 Blood Pressure 169/89 H 03/21/21 19:55 Blood Pressure Position Supine 03/21/21 19:55 Pulse Oximetry 96 03/21/21 19:55 Oxygen Delivery Method Room Air 03/21/21 19:55 Oxygen Flow Rate 0 03/21/21 19:55 Pain Level 9 03/21/21 19:55
[2021-03-21 20:31] LABS: Abs Immature Grans 0.03 10^3/uL (0.0-0.06); Absolute Basophil Count 0.05 10^3/uL (0.0-0.2); Absolute Eosinophil Count 0.27 10^3/uL (0.0-0.7); Absolute Lymphocyte Count 2.24 10^3/uL (1.2-3.4); Absolute Monocyte Count 0.93 10^3/uL (0.1-0.8); Absolute Neutrophil Count 5.16 10^3/uL (1.2-6.7); Basophils % 0.6; Eosinophils % 3.1; HCT 36.1 % (36.0-46.0); HGB 12.1 g/dL (11.2-15.7); Immature Grans % 0.3; Lymphocytes % 25.8; MCH 27.8 pg (27.0-33.0); MCHC 33.5 % (32.0-36.0); MPV 9.9 fL (8.0-11.0); Monocytes % 10.7; Neutrophils % 59.5; Nucleated RBC 0 %; Platelet Count 245 10^3/uL (130-400); RBC 4.35 10^6/uL (3.93-5.22); RDW 12.5 % (11.7-14.6); RDW-SD 38.2 fL; WBC 8.68 10^3/uL (4.4-10.8)
[2021-03-21] MEDS: fentaNYL 100 MCG/2 ML VIAL 50 MCG IVP (20:37)
[2021-03-21] MEDS: Ondansetron 4 MG/2 ML VIAL IVP (20:38)
[2021-03-21 20:45] LABS: ALT 16 U/L (14-59); AST 23 U/L (15-37); Albumin 3.3 g/dL (3.4-5.0); Alkaline Phosphatase 94 U/L (46-116); Anion Gap 7.9 mmol/L (3-11); BUN 10 mg/dL (7-18); Bilirubin, Direct 0.1 mg/dL (0.0-0.2); Bilirubin, Total 0.8 mg/dL (0.2-1.0); CO2 24.1 mmol/L (21.0-32.0); CREATININE 0.7 mg/dL (0.55-1.02); Calcium 8.1 mg/dL (8.5-10.1); Chloride 88 mmol/L (98-107); Glucose 99 mg/dL (74-106); Lipase 78 U/L (73-393); Potassium 3.6 mmol/L (3.5-5.1); Total Protein 6.6 g/dL (6.4-8.2)
[2021-03-21 20:47] LABS: Sodium 120 mmol/L (136-145)
[2021-03-21] MEDS: Omnipaque 350 MG/ML 100 ML BTL IJ (20:50)
[2021-03-21] MEDS: Normal Saline - Diluent 50 ML VIAL IV (20:50)
[2021-03-21] MEDS: Normal Saline Flush 10 ML SYR IVP (20:51)
[2021-03-21 21:18] LABS: Bilirubin Negative (Negative); Blood Negative (Negative); Clarity Clear (Clear); Glucose Negative (Negative); Ketones 15 mg/dL (Negative); Leukocyte Esterase Negative (Negative); Nitrite Negative (Negative); Specific Gravity 1.015 (1.005-1.025); Urobilinogen 0.2 EU/dL (Up TO 0.2); pH 8.5 (5-8)
[2021-03-21 21:37] LABS: Sodium, Urine 90 mmol/L
--- NOTE | 2021-03-21 21:41 | DI.VRAD_ITS ---
PROCEDURE INFORMATION: Exam: CT Abdomen And Pelvis With Contrast Exam date and time: 03/21/2021 8:09 PM Age: 75 years old Clinical indication: Abdominal pain; Localized; Prior surgery; Surgery date: 6+ months; Surgery type: Hysterectomy, appendectomy, tubal ligation; Patient HX: Lower abdomen pain and n/v TECHNIQUE: Imaging protocol: Computed tomography of the abdomen and pelvis with contrast. Radiation optimization: All CT scans at this facility use at least one of these dose optimization techniques: automated exposure control; mA and/or kV adjustment per patient size (includes targeted exams where dose is matched to clinical indication); or iterative reconstruction. Contrast material: OMNIPAQUE 350; Contrast volume: 100 ml; Contrast route: INTRAVENOUS (IV); COMPARISON: SC US ABDOMEN 08/09/2018 3:39 PM FINDINGS: Mediastinal space: Hiatal hernia. Liver: Too small to characterize hypoenhancing area or lesion in right lobe of liver. New, 1.5 x 2 cm circumscribed area of diminished attenuation/enhancement about falciform ligament, 12/27. Gallbladder and bile ducts: Normal. No calcified stones. No ductal dilation. Pancreas: Interval loss of pancreatic parenchyma. No ductal dilatation. Spleen: Normal. No splenomegaly. Adrenal glands: Normal. No mass. Kidneys and ureters: Homogeneous enhancement of renal parenchyma. Extrarenal pelves remain prominent. No hydronephrosis. Stomach and bowel: Gastric distension. No dilated loops of small bowel or colonic dilatation. Appendix: Prior appendectomy. Intraperitoneal space: Unremarkable. No free air. No significant fluid collection. Vasculature: Unremarkable. No abdominal aortic aneurysm. Lymph nodes: Unremarkable. No enlarged lymph nodes. Urinary bladder: Unremarkable as visualized. Reproductive: Prior hysterectomy. Vaginal becker are thickened and there is irregularity of vaginal mucosa surface, 580 3-85. Bones/joints: The spine demonstrates mild degenerative changes at multiple levels. No acute fracture. Soft tissues: Unremarkable. IMPRESSION: 1. New area or lesion of diminished attenuation/enhancement about falciform ligament. Correlate with liver ultrasound. 2. Prominent vagina with irregularity of mucosal surface. Correlate clinically and with ultrasound. 3. Pancreatic atrophy. Dictated and Authenticated by: Darek Moya MD. Ordering:ISABELA Barker MD
--- NOTE | 2021-03-21 22:09 | W.MEDCONSULT ---
Date of service: 03/21/21 Time of Service: 22:10 Assessment and Plan Assessment and plan (1) Hyponatremia: Status: Acute Assessment and plan: Given the dramatic change in Na over only a few hours my first concern was for possible lab error and I requested a repeat level. This is unchanged at 120. 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 Patient has been placed on saline infusion in ER and we will additionally limit free water. Otherwise the abdominal pain appears clearly to have been a toxic reaction to the Augmentin and I don't see that any further work up is required in this regard. History of Present Illness History of Present Illness Chief Complaint: abd pain Narrative: 75 female was seen earlier today as outpatient for possible sinus infection (sinus congestion over past week she states), given dose of Augmentin. Approx one hour later she developed lower abd pain, episode of diarrhea and few episodes of vomiting and came in for evaluation. Findings of note fo normal white count, and negative CT abdomen save for several areas of hypoattenuation in liver and pancreatic atrophy. Notably also Na 120, while earlier in day it had been 137. Glucose 99. Patient does admit to drinking a gallon of water daily (not by actual measurement, just as an indication of a large quantity), but states today was no different in that regard. Due to the hyponatremia I was asked to evaluate for possible admission. . States that abdominal pain in meantime has resolved, and no further diarrhea or vomiting. 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 AVOID AZITHROMAX - SEE NOTE VJ 06/30/16 SOB Bruising (02/22/15) Complete tear of right rotator cuff (12/12/17) Constipation (08/10/14) Depressive disorder Depressive disorder Ear problem (12/03/07) PERFERATED EARDRUM Fatigue (07/12/02) Multiple extensive work ups without etiology Hypercholesterolemia Insomnia Insomnia Low back pain Low back pain (01/02/17) Malignant neoplasm of cervix uteri hyst;single ovary remains 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) Primary malignant neoplasm of cervix Seborrheic keratoses (01/11/16) LEFT CHEEK, SCAPULA Tear of left supraspinatus tendon (09/04/17) mri 09/03/17 Urinary frequency (08/17/17) Weight loss (03/12/18) Surgical History Abdominal hysterectomy single ovary remains Appendectomy Colonoscopy - MAC (~2006) Colonoscopy - MAC (10/05/17) H/O bilateral salpingo-oophorectomy HERNIA REPAIR Ligation of fallopian tube BSO Open Carpal Tunnel release S/P abdominal hysterectomy one ovary remains S/P appendectomy S/P carpal tunnel release S/P hernia repair Status post abdominal hysterectomy Status post appendectomy Status post carpal tunnel release Status post hernia repair Family History Mother , 2 Emphysema of lung Stroke COPD (chronic obstructive pulmonary disease) Asthma Father , 85 Lung cancer Brother , 85 COPD (chronic obstructive pulmonary disease) Lung cancer Maternal Grandfather No problems noted. Paternal Grandfather No problems noted. Maternal Grandmother No problems noted. Paternal Grandmother No problems noted. Brother , 70 Diabetes Colon cancer Sister , 80 Diabetes Lung cancer Sister , 81 Cancer Social History Smoking/Tobacco Use Status: Never Second Hand Exposure: No Smoking risk assessment performed?: Yes Alcohol Intake: current Alcohol Intake frequency: holidays/special occasions only Drug use: Never Substance use type: does not use Caregiver/Support person: No Household members: spouse Housing: house Do you need help understanding health information?: Often Pets and animals: Yes Pets and animals: cat(s) Sexually active: Yes Do you think of yourself as: straight/heterosexual Current gender identity: female What is your relationship status?: How often do you talk on the phone with friends or family?: twice per week How often do you get together with friends or relatives?: once per week How often do you attend confucianism or samaritan services?: decline to answer Do you belong to any clubs or organized social groups?: no Panel score (0-1 are the most socially isolated patients): 2 Duration: decline to answer Frequency: 3-4 times per week Annelise/Mosque: [employer] Special annelise needs: No Seatbelt use: always Drive intox or ride w/intox 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 HEENT atraumatic; neck supple; lungs clear; nheart RRR; abdomen soft and NT; extremities w/o edema; neuro Ox3, lucid, moves all 4s Results Last Vital Signs Temp 36.2 C L 03/21/21 19:55 Pulse 59 L 03/21/21 19:55 Resp 18 03/21/21 20:00 BP 169/89 H 03/21/21 19:55 Pulse Ox 96 03/21/21 19:55 Labs Result diagrams: 03/21/21 19:20 03/21/21 22:36 Labs: Laboratory Results - last 24 hr 03/21/21 03/21/21 03/21/21 19:20 19:20 21:06 WBC 8.68 RBC 4.35 Hgb 12.1 Hct 36.1 MCV 83.0 D MCH 27.8 MCHC 33.5 RDW 12.5 Plt Count 245 MPV 9.9 Immature Gran % 0.3 Neutrophils % 59.5 Lymphocytes % 25.8 Monocytes % 10.7 Eosinophils % 3.1 Basophils % 0.6 Nucleated RBC % 0 Absolute Neutrophils 5.16 Absolute Lymphocytes 2.24 Absolute Monocytes 0.93 H Absolute Eosinophils 0.27 Absolute Basophils 0.05 Sodium 120 L* D Potassium 3.6 Chloride 88 L Carbon Dioxide 24.1 Anion Gap 7.9 BUN 10 Creatinine 0.7 Estimated GFR/1.73 m2 >= 60.00 Glucose 99 Calcium 8.1 L Total Bilirubin 0.8 Conjugated Bilirubin 0.1 AST 23 ALT 16 Alkaline Phosphatase 94 Total Protein 6.6 Albumin 3.3 L Lipase 78 Urine Color Yellow Urine Clarity Clear Urine pH 8.5 H Ur Specific [place] 1.015 Urine Protein Negative Urine Ketones 15 H Urine Blood Negative Urine Nitrite Negative Urine Bilirubin Negative Urine Urobilinogen 0.2 Ur Leukocyte Esterase Negative Ur Random Sodium Urine Glucose Negative 03/21/21 21:06 WBC RBC Hgb Hct MCV MCH MCHC RDW Plt Count MPV Immature Gran % Neutrophils % Lymphocytes % Monocytes % Eosinophils % Basophils % Nucleated RBC % Absolute Neutrophils Absolute Lymphocytes Absolute Monocytes Absolute Eosinophils Absolute Basophils Sodium Potassium Chloride Carbon Dioxide Anion Gap BUN Creatinine Estimated GFR/1.73 m2 Glucose Calcium Total Bilirubin Conjugated Bilirubin AST ALT Alkaline Phosphatase Total Protein Albumin Lipase Urine Color Urine Clarity Urine pH Ur Specific [place] Urine Protein Urine Ketones Urine Blood Urine Nitrite Urine Bilirubin Urine Urobilinogen Ur Leukocyte Esterase Ur Random Sodium 90 Urine Glucose
[2021-03-21] MEDS: Normal Saline 1,000 ML 125 ML IV (22:13)
[2021-03-21 22:55] LABS: Anion Gap 6.6 mmol/L (3-11); BUN 10 mg/dL (7-18); CO2 24.4 mmol/L (21.0-32.0); CREATININE 0.7 mg/dL (0.55-1.02); Chloride 89 mmol/L (98-107); Glucose 119 mg/dL (74-106); Potassium 3.7 mmol/L (3.5-5.1)
[2021-03-21 22:57] LABS: Sodium 120 mmol/L (136-145)
[2021-03-21 23:48] LABS: Source Nasal/Nares
[2021-03-22 00:08] VITALS: BP 130/78; PULSE 67; RESP 16; TEMP 35.9; O2SAT 96
[2021-03-22 00:40] LABS: COVID-19 PCR Negative (Negative)
[2021-03-22 04:39] LABS: Sodium 133 mmol/L (136-145)
[2021-03-22] MEDS: Acetaminophen 325 MG TAB 650 MG PO ×2 (07:50→12:56)
[2021-03-22 07:52] VITALS: TEMP 36.2
[2021-03-22 07:54] VITALS: BP 113/64; PULSE 58; O2SAT 97
--- NOTE | 2021-03-22 08:27 | PGE_ITS ---
Date of Service Date of service: 03/22/21 Time of Service: 14:21 Assessment and Plan Assessment and plan (1) Hyponatremia: Status: Acute Assessment and plan: Etiology unclear. Urine sodium not c/w SIADH. ?psychogenic polidypsia. Does also take SSRIs. check TSH and cortisol level. Importantly, it has improved markedly just with 1 L of NS, but not yet at baseline. Recheck sodium in am (2) Abdominal pain: Status: Resolved Assessment and plan: accompanied by n/v/d. Likely effect of augmentin, now d/c'ed. Patient seemingly tolerated lunch. No further w/u (3) Depressive disorder: Status: Chronic Assessment and plan: Continue prozac/mirtazapine, but if sodium issues persist, consider d/c'ing as can cause hyponatremia. (4) Allergic rhinitis: Status: Chronic Assessment and plan: I do not see evidence of acute bacterial sinusitis. Agree with nasal spray, add zyrtec. No indication for abx at this time. (5) DVT prophylaxis: Status: Acute Assessment and plan: SC heparin (6) Discharge planning issues: Status: Acute Assessment and plan: Full code Plan on discharge home tomorrow assuming sodium normalized Subjective Subjective Interval history since last seen: Ms Guerrero felt nauseated this morning but was able to tolerate lunch after she got zofran. She describes diarrhea/nausea/vomiting at home. She denies purulent discharge from her nose - states it has been clear. Denies dizziness, chest pain, shortness of breath. States she usually drinks 1 gallon of water a day, but not more than that in her interview with me. Received 1L NS overnight. 1900 cc UOP in 6hrs. Sodium up to 133 this am and remained there. No neuro changes. No seizures. Afebrile. Per PCP records, hyponatremia is new. Exam Narrative Exam Narrative: General: Pleasant female who looks comfortable sitting in a chair, A&Ox3 HEENT: EOMI, MMM Heart: RRR, no m/r/g Lungs: CTAB Abdomen: soft, nontender, nondistended Extremities: no edema BLE's Objective Last Vital Signs Temp 36.2 C L 03/22/21 07:52 Pulse 67 03/22/21 00:08 Resp 16 03/22/21 00:08 BP 130/78 03/22/21 00:08 Pulse Ox 96 03/22/21 00:08 Laboratory Results - last 24 hr 03/21/21 03/21/21 03/21/21 19:20 19:20 21:06 WBC 8.68 RBC 4.35 Hgb 12.1 Hct 36.1 MCV 83.0 D MCH 27.8 MCHC 33.5 RDW 12.5 Plt Count 245 MPV 9.9 Immature Gran % 0.3 Neutrophils % 59.5 Lymphocytes % 25.8 Monocytes % 10.7 Eosinophils % 3.1 Basophils % 0.6 Nucleated RBC % 0 Absolute Neutrophils 5.16 Absolute Lymphocytes 2.24 Absolute Monocytes 0.93 H Absolute Eosinophils 0.27 Absolute Basophils 0.05 Sodium 120 L* D Potassium 3.6 Chloride 88 L Carbon Dioxide 24.1 Anion Gap 7.9 BUN 10 Creatinine 0.7 Estimated GFR/1.73 m2 >= 60.00 Glucose 99 Calcium 8.1 L Total Bilirubin 0.8 Conjugated Bilirubin 0.1 AST 23 ALT 16 Alkaline Phosphatase 94 Total Protein 6.6 Albumin 3.3 L Lipase 78 Urine Color Yellow Urine Clarity Clear Urine pH 8.5 H Ur Specific [place] 1.015 Urine Protein Negative Urine Ketones 15 H Urine Blood Negative Urine Nitrite Negative Urine Bilirubin Negative Urine Urobilinogen 0.2 Ur Leukocyte Esterase Negative Ur Random Sodium Urine Glucose Negative COVID-19 Source SARS-CoV-2 (PCR) 03/21/21 03/21/21 03/21/21 21:06 22:32 22:36 WBC RBC Hgb Hct MCV MCH MCHC RDW Plt Count MPV Immature Gran % Neutrophils % Lymphocytes % Monocytes % Eosinophils % Basophils % Nucleated RBC % Absolute Neutrophils Absolute Lymphocytes Absolute Monocytes Absolute Eosinophils Absolute Basophils Sodium Cancelled 120 L* Potassium Cancelled 3.7 Chloride Cancelled 89 L Carbon Dioxide Cancelled 24.4 Anion Gap Cancelled 6.6 BUN Cancelled 10 Creatinine Cancelled 0.7 Estimated GFR/1.73 m2 Cancelled >= 60.00 Glucose Cancelled 119 H Calcium Cancelled 8.0 L Total Bilirubin Conjugated Bilirubin AST ALT Alkaline Phosphatase Total Protein Albumin Lipase Urine Color Urine Clarity Urine pH Ur Specific [place] Urine Protein Urine Ketones Urine Blood Urine Nitrite Urine Bilirubin Urine Urobilinogen Ur Leukocyte Esterase Ur Random Sodium 90 Urine Glucose COVID-19 Source SARS-CoV-2 (PCR) 03/21/21 03/22/21 23:40 04:13 WBC RBC Hgb Hct MCV MCH MCHC RDW Plt Count MPV Immature Gran % Neutrophils % Lymphocytes % Monocytes % Eosinophils % Basophils % Nucleated RBC % Absolute Neutrophils Absolute Lymphocytes Absolute Monocytes Absolute Eosinophils Absolute Basophils Sodium 133 L D Potassium Chloride Carbon Dioxide Anion Gap BUN Creatinine Estimated GFR/1.73 m2 Glucose Calcium Total Bilirubin Conjugated Bilirubin AST ALT Alkaline Phosphatase Total Protein Albumin Lipase Urine Color Urine Clarity Urine pH Ur Specific [place] Urine Protein Urine Ketones Urine Blood Urine Nitrite Urine Bilirubin Urine Urobilinogen Ur Leukocyte Esterase Ur Random Sodium Urine Glucose COVID-19 Source Nasal/Nares SARS-CoV-2 (PCR) Negative
[2021-03-22] MEDS: Ondansetron 4 MG/2 ML VIAL IVP (08:45)
[2021-03-22] MEDS: Normal Saline Flush 10 ML SYR IVP ×2 (08:46→19:54)
[2021-03-22 10:48] LABS: Anion Gap 7.9 mmol/L (3-11); BUN 10 mg/dL (7-18); CO2 24.1 mmol/L (21.0-32.0); CREATININE 0.8 mg/dL (0.55-1.02); Calcium 8.7 mg/dL (8.5-10.1); Chloride 101 mmol/L (98-107); Glucose 115 mg/dL (74-106); Potassium 4.4 mmol/L (3.5-5.1); Sodium 133 mmol/L (136-145)
--- NOTE | 2021-03-22 11:19 | PDOC.CMIN ---
- If Service Date Differs Date of service: 03/22/21 Time of Service: 11:19 Care Management Initial Assess REASON FOR HOSPITALIZATION:: Hyponatremia, Abdominal Pain PAST MEDICAL HISTORY/PAST SURGICAL HISTORY:: Medical History . Abnormal laboratory test. decreased cortisol w/retesting normal. Atrophic vaginitis. Benign neoplasm of skin of perineum. benign lesion-resolved. Bronchiolitis. 02/11/16-[facility]. 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 AVOID AZITHROMAX - SEE NOTE VJ 06/30/16. SOB. Bruising (02/22/15). Complete tear of right rotator cuff (12/12/17). Constipation (08/10/14). Depressive disorder. Depressive disorder. Ear problem (12/03/07). PERFERATED EARDRUM. Fatigue (07/12/02). Multiple extensive work ups without etiology. Hypercholesterolemia. Insomnia. Insomnia. Low back pain. Low back pain (01/02/17). Malignant neoplasm of cervix uteri. hyst;single ovary remains. Mantoux: positive. 12/03/07. 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). Primary malignant neoplasm of cervix. Seborrheic keratoses (01/11/16). LEFT CHEEK, SCAPULA. Tear of left supraspinatus tendon (09/04/17). mri 09/03/17. Urinary frequency (08/17/17). Weight loss (03/12/18). Surgical History . Abdominal hysterectomy. single ovary remains. Appendectomy. Colonoscopy - MAC (~2006). Colonoscopy - MAC (10/05/17). H/O bilateral salpingo-oophorectomy. HERNIA REPAIR. Ligation of fallopian tube. BSO. Open Carpal Tunnel release. S/P abdominal hysterectomy. one ovary remains. S/P appendectomy. S/P carpal tunnel release. S/P hernia repair. Status post abdominal hysterectomy. Status post appendectomy. Status post carpal tunnel release. Status post hernia repair PREVIOUS FUNCTIONAL STATUS/SOCIAL/FAMILY SUPPORTS:: Raquel lives with her Albaro at their home in [facility]. Raquel reports that she is independant at baseline and works part-time as a house keeper. She also enjoys walking in her free time. Raquel has three adult children, two daughters (Lala, Tena) and a son (Rocky) and feels that she has an abundance of family support. CURRENT FUNCTIONAL STATUS:: Raquel was sitting up in bed when CM met with her. She was pleasant and easily engaged in conversation. Raquel shared that she is better tolerating meals since starting on Zofran but continues to have intermittent nausea. Overall she is feeling better, her abdominal pain is improving and she feels less bloated. CM will continue to support. ADVANCE DIRECTIVES:: On File, Healthcare agent Albaro Guerrero Has patient been provided with info about the portal/API?: Yes Did the patient sign up for the portal?: No CODE STATUS:: Full Code INSURANCE COVERAGE / FINANCIAL ISSUES:: Medicare/C&S Admin SER C CURRENT HOME/COMMUNITY SERVICES/EQUIPMENT:: None PRIMARY CARE PHYSICIAN:: Dr. Carrie Mejias [facility] POTENTIAL DISCHARGE NEEDS:: Raquel will likely be discharged to home when medically cleared with no new services. She will follow up with her PCP and plan of care. CM continues to support discharge needs. PATIENT/FAMILY EDUCATION NEEDS:: Review discharge instructions, plan and need for follow up appointments, ask me three. ANTICIPATED BARRIERS TO DISCHARGE:: None identified at this time. TRANSPORTATION:: Raquel will be transported via private vehicle with her Albaro. PLAN:: Raquel will likely return home when medically cleared, with no new services. Raquel should follow up with her PCP and discharge plan of care. CM continues to support discharge plan.
--- NOTE | 2021-03-22 13:59 | NUR.NOTE ---
Nursing Note: in room with patient at this time.
[2021-03-22 15:44] LABS: FREE T4 0.95 ng/dL (0.76-1.46); TSH 2.81 uIU/mL (0.36-3.74)
[2021-03-22 15:49] VITALS: O2SAT 96
[2021-03-22 15:51] VITALS: BP 118/70; PULSE 60
[2021-03-22 16:01] VITALS: TEMP 36.1
[2021-03-22] MEDS: Fluticasone NASAL SPRAY 16 GM BTL NS (16:22)
[2021-03-22] MEDS: Heparin 5,000 UNITS/ML VIAL 5000 UNITS SC (16:23)
[2021-03-22] MEDS: Budesonide/Formoterol 160/4.5 6 GM 60 PUFF INH IH (19:52)
[2021-03-22] MEDS: Oxybutynin 5 MG TAB PO (19:53)
[2021-03-22] MEDS: Cetirizine 10 MG TAB PO (21:58)
[2021-03-23] VITALS (8 sets, daily range): BP systolic 99–135; BP diastolic 60–77; PULSE 53–57; RESP 14–20; TEMP 36–36.2; O2SAT 94–97
--- NOTE | 2021-03-23 | DI.RAD_ITS ---
Exam(s) XR PORTABLE CHEST AP EXAM: XR PORTABLE CHEST AP CLINICAL HISTORY: Crackles, shortness of breath TECHNIQUE: 2D digital imaging was performed. COMPARISON: CR XR CHEST 2V PA LATERAL from 08/09/2018 FINDINGS: LUNGS: Clear. No pleural abnormality seen. HEART: Normal. MEDIASTINUM: Ectatic aorta. BONES: Degenerative disc changes in the thoracic spine. IMPRESSION: No acute pulmonary findings. DATA REPOSITORY: RADIATION DOSE DELIVERED:
[2021-03-23] MEDS: Heparin 5,000 UNITS/ML VIAL 5000 UNITS SC ×2 (00:41→08:20)
[2021-03-23 07:32] LABS: Anion Gap 2.4 mmol/L (3-11); BUN 13 mg/dL (7-18); CO2 27.6 mmol/L (21.0-32.0); CREATININE 0.9 mg/dL (0.55-1.02); Calcium 8.6 mg/dL (8.5-10.1); Chloride 103 mmol/L (98-107); Glucose 83 mg/dL (74-106); Magnesium 2.1 mg/dL (1.8-2.4); Potassium 4.6 mmol/L (3.5-5.1); Sodium 133 mmol/L (136-145)
[2021-03-23] MEDS: Oxybutynin-CR 5 MG TABCR 10 MG PO (08:18)
[2021-03-23] MEDS: Omeprazole 20 MG CAPCR PO (08:19)
[2021-03-23] MEDS: Acetaminophen 325 MG TAB 650 MG PO (08:19)
[2021-03-23] MEDS: Omega-3 Fatty Acids 1000 MG CAP PO (08:19)
[2021-03-23] MEDS: FLUoxetine 20 MG CAP 40 MG PO (08:19)
[2021-03-23] MEDS: Aspirin E.C. 81 MG TABEC PO (08:19)
[2021-03-23] MEDS: Mirtazapine 15 MG TAB PO (08:20)
--- NOTE | 2021-03-23 08:21 | W.PM.PROGNOT ---
Subjective Subjective Interval history since last seen: Nausea and frontal headache this morning. UOP 2325 cc overnight. Fine crackles in the right base. no v. No neuro changes. Objective Last Vital Signs Temp 36.1 C L 03/23/21 07:58 Pulse 57 L 03/23/21 00:45 Resp 14 03/23/21 00:45 BP 132/73 03/23/21 00:45 Pulse Ox 97 03/23/21 00:45 Laboratory Results - last 24 hr 03/22/21 03/23/21 10:00 06:06 Sodium 133 L 133 L Potassium 4.4 4.6 Chloride 101 103 Carbon Dioxide 24.1 27.6 Anion Gap 7.9 2.4 L BUN 10 13 Creatinine 0.8 0.9 Estimated GFR/1.73 m2 >= 60.00 >= 60.00 Glucose 115 H 83 Calcium 8.7 8.6 Magnesium 2.1 TSH 2.81 Free T4 0.95
[2021-03-23] MEDS: Fluticasone NASAL SPRAY 16 GM BTL NS (08:28)
[2021-03-23] MEDS: Budesonide/Formoterol 160/4.5 6 GM 60 PUFF INH IH (08:42)
[2021-03-23] MEDS: Lactated Ringers 1,000 ML 100 ML IV (08:49)
--- NOTE | 2021-03-23 09:56 | CMPROGNOTE_ITS ---
- If Service Date Differs Date of service: 03/23/21 Time of Service: 09:56 Care Management Progress Note S/O: Raquel was laying in bed visiting with her Albaro when CM met with her. He shares that Raquel is the best women that he has ever met which made Raquel smile. Raquel feels tired, weak and has shortness of breath. She shares that she feels good and then easily gets drained. Raquel is anticipating having a chest x-ray and being discharged home dependent on the results of her x-ray and labs. A: Raquel is a 75 year old female, admitted to [facility] ICU on 03/21/21 for hyponatremia P: Raquel is planning on being discharge to home today with no new services via private vehicle with Albaro pending test results and when medically stable. CM will continue to support discharge needs.
[2021-03-23] MEDS: Albuterol HFA 8 GM 60 PUFF INH IH (14:20)
[2021-03-23 15:22] LABS: Anion Gap 4.5 mmol/L (3-11); BUN 13 mg/dL (7-18); CO2 26.5 mmol/L (21.0-32.0); CREATININE 0.8 mg/dL (0.55-1.02); Calcium 8.3 mg/dL (8.5-10.1); Chloride 104 mmol/L (98-107); Glucose 119 mg/dL (74-106); Potassium 4.3 mmol/L (3.5-5.1); Sodium 135 mmol/L (136-145)
--- NOTE | 2021-03-23 17:06 | DSE_ITS ---
Date of service: 03/23/21 Time of Service: 17:06 DS: Diagnosis Discharge Diagnosis (1) Hyponatremia: Status: Resolved (2) Abdominal pain: Status: Resolved (3) Depressive disorder: Status: Chronic (4) Allergic rhinitis: Status: Chronic (5) COVID-19 ruled out by laboratory testing: Status: Ruled-out Discharge Plan Disposition Patient Disposition: HOME Condition: Stable Discharge Details Reason For Visit: hyponatremia Admit Date/Time: 03/21/21 23:05 Admit Provider: Pedro Pablo Appiah Attending Provider: Pedro Pablo Appiah Primary Care Provider: Carrie Mejias [facility] Course Hospital Course: Ms Guerrero is a 75 year old female with PMHx of seasonal allergies as well as depression on SSRIs, hypercholesterolemia, h/o bronchiolitis, who was observed on [facility] hospitalist service from 03/21/21 until 03/23/21 for hyponatremia (sodium of 120) in setting of n/v/diarrhea following ingestion of augmentin, prescribed for a possible bacterial sinusitis. Sodium was 137 on bloodwork check earlier that day. Etiology of this hyponatremia is not 100% clear, but it does not appear to be either SIADH or psychogenic polydypsia. The patient responded to 1 L of NS with sodium going up to 133. However, she continued to experience nausea until 03/23/21, when it finally resolved. The patient's sodium is 135 on the day of discharge. Tick panel is pending as there is a suspicion the patient might have a tick-borne illness. Antibiotics were not continued on this admission and are not being resumed on discharge. Augmentin was added to her allergy list. The etiology of her nasal congestion appears to be seasonal allergies. Zyrtec and continuation of fluticasone nasal spray were recommended. The patient was noted to be on both advair and flovent HFA. It is not recommended that the patient be on both chronically, per pulmonology review, and flovent is being discontinued on discharge. Care for patient as well as completion of her discharge summary took 40 minutes on the day of discharge. Home Meds and New Rx's Prescriptions: New cetirizine 10 mg Tablet 10 mg PO HS Qty: 30 RF: 0 Continued aspirin [Adult Low Dose Aspirin] 81 mg tablet,delayed release (DR/EC) 81 mg PO DAILY RF: 0 melatonin 5 mg capsule 5 mg PO HS PRN (Reason: insomnia) Qty: 30 RF: 1 fluticasone propionate [Flonase Allergy Relief] 50 mcg/actuation spray,suspension 1 spray intranasal DAILY Qty: 16 RF: 0 cholecalciferol (vitamin D3) 4,000 unit capsule 4,000 unit PO DAILY RF: 0 fluconazole 150 mg tablet 150 mg PO QWEEK PRNRF: 0 omega-3 fatty acids-fish oil 1 EACH capsule 1 cap PO DAILY RF: 0 PEAK FLOW METER RF: 0 meclizine 25 MG tablet 50 mg PO Q6H PRN Qty: 30 RF: 0 polyethylene glycol 1000(bulk) 500 GM powder 17 gm PO DAILY PRNQty: 500 RF: 12 albuterol sulfate [ProAir HFA] 90 mcg/actuation HFA aerosol inhaler 2 puff Inhalation Q4H PRN Qty: 1 RF: 12 estradiol [Yuvafem] 10 mcg tablet 10 mcg VG .3 times weekly Qty: 36 RF: 4 ibuprofen 600 mg tablet 600 mg PO Q8H PRN PRN (Reason: pain) Qty: 60 RF: 6 oxybutynin chloride 10 mg tablet extended release 24hr 10 mg PO DAILY Qty: 90 RF: 12 fluticasone propion-salmeterol [Advair Diskus] 250-50 mcg/dose blister with device 1 inh Inhalation BID Qty: 3 RF: 4 fluoxetine [Prozac] 40 mg capsule 40 mg PO DAILY Qty: 90 RF: 4 mirtazapine 15 mg tablet 15 mg PO DAILY Qty: 30 RF: 11 omeprazole 20 mg tablet,delayed release (DR/EC) 20 mg PO DAILY Qty: 90 RF: 12 acetaminophen [Acetaminophen Extra Strength] 500 mg tablet 1,000 mg PO TID PRN PRN (Reason: pain) Qty: 100 RF: 6 zinc 50 mg Tablet 50 mg PO DAILY RF: 0 turmeric root extract 500 mg Capsule 500 mg PO DAILY RF: 0 mercedes extract 500 mg Capsule 500 mg PO DAILY RF: 0 omega 0-wjo-aqt-fish oil [Fish Oil] 1,200 (144-216) mg Capsule 1,200 cap PO DAILY RF: 0 elderberry fruit 200 mg Capsule 50 mg PO DAILY RF: 0 apple cider vinegar 500 mg Tablet 450 mg PO BID RF: 0 psyllium Packet 1 packet PO BID RF: 0 cyanocobalamin (vitamin B-12) 5,000 mcg Capsule 5,000 mcg PO DAILY RF: 0 Discontinued amoxicillin-pot clavulanate [Augmentin] 875-125 mg tablet 1 tab PO BID Qty: 14 RF: 0 Flovent HFA 110 mcg/actuation HFA aerosol inhaler 110 mcg Inhalation BID Qty: 3 RF: 4 Discharge Instructions Instructions: Hyponatremia (DC), Allergic Rhinitis (DC) Additional Instructions: Do not drink more than 1 gallon of water a day. Return to the hospital with any fever, bleeding, chest pain, shortness of breath. Bloodwork in 1 week. Follow up with your primary care provider within 1 week Activity:: Activity as Tolerated Equipment/Supplies:: No Equipment Needed Diet:: As Tolerated Discharge Orders Discharge Orders: Discharge Order (Routine); Ordered 03/23/21 Ordered By: Sara Olson Other Ambulatory Orders: Basic Metabolic Panel (Routine) Timeframe: 1 Week Facility: [facility] - Location: Laboratory Outpatient Ordered By: Sara Olson DS: Summary Time Spent with Patient providing and/or coordinating discharge services: Greater than 30 minutes Status at Discharge Functional status at discharge: independent ambulation Overall status at discharge: patient is back to baseline Mental Status: mental status grossly normal Speech and Movement: speech and movement normal Mood: congruent mood Affect: normal affect Exam Narrative Exam Narrative: General: Pleasant female who looks comfortable, A&Ox3 HEENT: EOMI, MMM Heart: RRR, no m/r/g Lungs: CTAB Abdomen: soft, nontender, nondistended Extremities: no edema BLE's Psych Mental Status: mental status grossly normal Speech and Movement: speech and movement normal Affect: normal affect DS: Data Vitals/I&O Vitals and I&O: Vital Signs Temperature 36.2 C L 03/23/21 16:31 Temperature Source Temporal Artery Scan 03/23/21 16:31 Pulse 54 L 03/23/21 16:29 Pulse Rhythm Regular 03/23/21 16:25 Pulse 59 L 03/21/21 23:50 Respiratory Rate 20 03/23/21 16:31 Respiratory Effort Non-Labored 03/23/21 16:25 Respiratory Depth Normal 03/23/21 16:25 Respiratory Pattern Normal 03/23/21 16:25 Blood Pressure 128/77 03/23/21 16:29 Blood Pressure Mean 89 03/23/21 16:29 Blood Pressure Position Supine 03/21/21 19:55 Pulse Oximetry 94 03/23/21 14:18 Oxygen Delivery Method Room Air 03/23/21 16:31 Oxygen Flow Rate 0 03/23/21 16:31 Pain Level 0 03/23/21 16:31 Intake & Output 03/22/21 03/23/21 03/23/21 23:59 11:59 23:59 Intake Total 1310 / 2510 800 / 1606.667 806.667 / 1606.667 Output Total 525 / 3415 1800 / 3300 1500 / 3300 Balance 785 / -905 -1000 / -1693.333 -693.333 / -1693.333 Weight 57.3 kg Intake: IV 10 / 1010 406.667 / 406.667 Oral 1300 / 1500 800 / 1200 400 / 1200 Output: Urine 525 / 3415 1800 / 3300 1500 / 3300 Other: Urine Color Pale Yellow Yellow Urine Appearance Clear Clear Clear Urine Odor Normal Normal Voiding Methods Bedside Commode Bedside Commode Bedside Commode Data Completed and Pending Completed studies during hospitalization [Text1]: CXR 03/23/21: No acute pulmonary findings. CT abdomen/pelvis 03/21/21: Gastric distension. Unremarkable small bowel and colon. Questionable vaginal wall thickening. Clinical correlation is recommended. Labs on day of discharge: Labs from last 24 hours 03/23/21 03/23/21 03/23/21 14:03 06:06 06:06 Sodium 135 L 133 L Potassium 4.3 4.6 Chloride 104 103 Carbon Dioxide 26.5 27.6 Anion Gap 4.5 2.4 L BUN 13 13 Creatinine 0.8 0.9 Estimated GFR/1.73 m2 >= 60.00 >= 60.00 Glucose 119 H 83 Calcium 8.3 L 8.6 Magnesium 2.1 Cortisol A.phagocytophil DNA PCR Pending B. divergens/MO-1 PCR Pending Babesia duncani (PCR) Pending Babesia microti DNA PCR Pending Borrelia (PCR) Pending Lyme Disease Antibody Pending E.chaffeensis DNA (PCR) Pending E.ewingii/canis DNA PCR Pending E. muris-like DNA (PCR) Pending 03/23/21 06:06 Sodium Potassium Chloride Carbon Dioxide Anion Gap BUN Creatinine Estimated GFR/1.73 m2 Glucose Calcium Magnesium Cortisol Pending A.phagocytophil DNA PCR B. divergens/MO-1 PCR Babesia duncani (PCR) Babesia microti DNA PCR Borrelia (PCR) Lyme Disease Antibody E.chaffeensis DNA (PCR) E.ewingii/canis DNA PCR E. 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 AVOID AZITHROMAX - SEE NOTE VJ 06/30/16 SOB Bruising (02/22/15) Complete tear of right rotator cuff (12/12/17) Constipation (08/10/14) Depressive disorder Depressive disorder Ear problem (12/03/07) PERFERATED EARDRUM Fatigue (07/12/02) Multiple extensive work ups without etiology Hypercholesterolemia Insomnia Insomnia Low back pain Low back pain (01/02/17) Malignant neoplasm of cervix uteri hyst;single ovary remains 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) Primary malignant neoplasm of cervix Seborrheic keratoses (01/11/16) LEFT CHEEK, SCAPULA Tear of left supraspinatus tendon (09/04/17) mri 09/03/17 Urinary frequency (08/17/17) Weight loss (03/12/18) Surgical History Abdominal hysterectomy single ovary remains Appendectomy Colonoscopy - MAC (~2006) Colonoscopy - MAC (10/05/17) H/O bilateral salpingo-oophorectomy HERNIA REPAIR Ligation of fallopian tube BSO Open Carpal Tunnel release S/P abdominal hysterectomy one ovary remains S/P appendectomy S/P carpal tunnel release S/P hernia repair Status post abdominal hysterectomy Status post appendectomy Status post carpal tunnel release Status post hernia repair Family History Mother , 2 Emphysema of lung Stroke COPD (chronic obstructive pulmonary disease) Asthma Father , 85 Lung cancer Brother , 85 COPD (chronic obstructive pulmonary disease) Lung cancer Maternal Grandfather No problems noted. Paternal Grandfather No problems noted. Maternal Grandmother No problems noted. Paternal Grandmother No problems noted. Brother , 70 Diabetes Colon cancer Sister , 80 Diabetes Lung cancer Sister , 81 Cancer Social History Smoking/Tobacco Use Status: Never Second Hand Exposure: No Smoking risk assessment performed?: Yes Alcohol Intake: current Alcohol Intake frequency: holidays/special occasions only Drug use: Never Substance use type: does not use Caregiver/Support person: No Household members: spouse Housing: house Do you need help understanding health information?: Often Pets and animals: Yes Pets and animals: cat(s) Sexually active: Yes Do you think of yourself as: straight/heterosexual Current gender identity: female What is your relationship status?: How often do you talk on the phone with friends or family?: twice per week How often do you get together with friends or relatives?: once per week How often do you attend sabianism or baptist services?: decline to answer Do you belong to any clubs or organized social groups?: no Panel score (0-1 are the most socially isolated patients): 2 Duration: decline to answer Frequency: 3-4 times per week Annelise/Advent: Gnosticist Special annelise needs: No Seatbelt use: always Drive intox or ride w/intox 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
--- NOTE | 2021-03-23 17:47 | PDOC.CMDIS ---
- If Service Date Differs Date of service: 03/23/21 Time of Service: 17:47 LACE Index Scoring Tool - Questions: Length of Stay (in days): 1 Acuity (Admit via E.D.?): Yes Comorbidities: Any Tumor E.D. Visits: 1 - Answers: Total Score: 7 Risk of Readmission: Low Risk Care Management Discharge Reason for Hospitalization: Hyponatremia, Abdominal Pain Discharge Plan: Raquel is being discharged to home with no new services via private vehicle with Albaro. She will have repeat labs and follow up with her PCP within 1 week. Raquel will return to the hospital with any fever, bleeding, chest pain, shortness of breath. Patient/Family Education Needs: Discharge instructions, meds and plans to follow up with her PCP and repeat labs within 1 week, ask me three.
[2021-03-24 11:44] LABS: Lyme Ab w Rflx to Lyme Confirm Negative (Negative)
[2021-03-25 05:42] LABS: Anaplasma phagocytophilum Negative (Negative); B. miyamotoi PCR Negative (Negative); Babesia divergens/MO-1 Negative (Negative); Babesia duncani Negative (Negative); Babesia microti Negative (Negative); Ehrlichia chaffeensis Negative (Negative); Ehrlichia ewingii/canis Negative (Negative); Ehrlichia muris eauclairensis Negative (Negative)
== END 2021-03-23 17:47 | disposition home or self-care (01) ==
LOC: ER 03-22 00:09 → ICU 03-22 00:15
PROVIDERS: Internal Medicine; Admitting Provider General Practice; Emergency Provider Emergency Medicine; PCP Family Medicine; Visit Provider General Practice
DX: E87.1 Hypo-osmolality and hyponatremia (principal); Z20.822 Contact with and (suspected) exposure to COVID-19; F32.9 Major depressive disorder, single episode, unspecified; E78.00 Pure hypercholesterolemia, unspecified; G47.00 Insomnia, unspecified; M54.5 Low back pain; R35.0 Frequency of micturition; R11.2 Nausea with vomiting, unspecified; R10.9 Unspecified abdominal pain; J30.9 Allergic rhinitis, unspecified
CPT/HCPCS: 36415; 80048; 80053; 82533; 83690; 87635; 87798; 94640; 96361; 96374; 96375; 99285; 71045; 74177; 81003; 82248; 83735; 84295; 84300; 84439; 84443; 85025; 86618; 94667; 99217; 99218; 99225; G0378; J1644; J2405; J3010; J3490

== ENCOUNTER 2021-05-12 04:11 | Outpatient (CLI) | payer MEDICARE, SELFPAY ==
[2021-05-12] MEDS: Albuterol HFA 18 GM 200 PUFF INH IH (13:55)
[2021-05-12] MEDS: Inhaler, Assist Device 1 EACH MC (13:56)
--- NOTE | 2021-05-17 15:41 | W.PFT ---
Date of service: 05/12/21 Time of Service: 13:00 Pulmonary Function Test Result Requesting Provider Carrie Mejias Indications: Bronchiolitis Interpretation Spirometry: There is no airflow limitation. There is no significant bronchodilator effect. The volume flow loop appears normal. Lung Volumes: Lung volumes are normal. Diffusion Capacity: There is a reduced diffusion capacity. Airway Pressure: Normal airways resistance. Impression Normal spirometry and lung volumes with an isolated reduced diffusion capacity. In the correct clinical setting this could represent pulmonary vascular disease with the possibility of pulmonary hypertension. Can consider an echocardiogram to evaluate pulmonary pressures. Note: When compared to 10/14/2009 the FVC is unchanged and the FEV1 has improved slightly. Lung volumes remain unchanged. There has been a reduction in the diffusion capacity. Clinical Correlation therefore is recommended.
== END 2021-05-12 04:12 | disposition home or self-care (01) ==
LOC: RT 04:11
PROVIDERS: PCP Family Medicine; Visit Provider Family Medicine
DX: J21.9 Acute bronchiolitis, unspecified (principal); R94.2 Abnormal results of pulmonary function studies
CPT/HCPCS: 94060; 94726; 94729

== ENCOUNTER 2021-07-05 01:06 | Outpatient (CLI) | payer MEDICARE, SELFPAY ==
--- NOTE | 2021-07-05 13:40 | DI.US_ITS ---
APPROVED REPORT EXAM: Comprehensive 2D, Doppler, and color-flow Echocardiogram Patient Location: Out-Patient Room/Bed: Director Education: Mariajose Croft RDCS (AE) Indications: SOB, Bronchiolitis Other Information Study Quality: Good Conclusion Normal left ventricular wall thickness and chamber size. Estimated ejection fraction is 55 to 60%. Wall motion is normal Normal right ventricular size and systolic function Both atria are normal in size Trileaflet aortic valve without stenosis or regurgitation Normal mitral valve with mild regurgitation Normal tricuspid valve with mild regurgitation. Estimated right ventricular systolic pressure is 28 mmHg Wall motion Left Ventricle The left ventricle is normal size. The left ventricular systolic function is normal. The left ventric ular ejection fraction is within the normal range. There is normal left ventricular wall thickness. T here is normal LV segmental wall motion. There is no ventricular septal defect visualized. LVEF is 59 %. Right Ventricle The right ventricle is normal size. The right ventricular systolic function is normal. The RVSP is 27 .7_ mmHg. Atria The left atrium size is normal. The right atrium size is normal. The interatrial septum is intact wit h no evidence for an atrial septal defect. Aortic Valve The aortic valve is normal in structure. Aortic valve is trileaflet. The aortic valve is not well vis ualized. There is no aortic valvular stenosis. No aortic regurgitation is present. Mitral Valve The mitral valve is normal in structure. No evidence of mitral valve stenosis. Mild mitral regurgitat ion. Tricuspid Valve The tricuspid valve is normal in structure. There is no tricuspid valve stenosis. Mild tricuspid regu rgitation. Pulmonic Valve The pulmonary valve is normal in structure. There is no pulmonic valvular stenosis. There is no pulmo emily valvular regurgitation. Great Vessels The aortic root is normal in size. Ascending aorta is not well visualized. Aortic arch is normal in c aliber. IVC is normal in size and collapses >50% with inspiration. Pericardium There is no pericardial effusion. 2D Dimensions IVSD d PLAX 0.74 cm F: 0.6-1.0 LV Vol A2C d MOD 67.5 mL LVPW d PLAX 0.79 cm F: 0.6 - 1.0 LV Vol A4C d MOD 84.1 mL LVID d PLAX 4.27 cm F: 3.8 - 5.2 LA vol/ BSA A2C s A-L 36.1 mL/m2 LVDs 2.85 cm F: 2.2 - 3.5 LA vol/ BSA A4C s A-L 28.2 mL/m2 Ao Root d 2.60 cm F: 2.7 - 3.3 LA Vol/ BSA Biplane s A-L 33.4 mL/m2 RA Area A4C 12.21 cm2 LA Area A4C s MOD 15.83 cm2 RA Vol/ BSA A4C s A-L 19.0 mL/m2 LA Area A2C s MOD 18.70 cm2 LV EF Teichholz 61.4 % LV EF A4C MOD 58.7 % LVEF (Quiroz's) 56.90 % F: 54 - 74 LV EF A2C MOD 59.5 % LV Volume 62.28 mL F: 46 - 106 LV EF Biplane MOD 56.9 % LV Volume Index 40.18 mL/m2 F: 29 - 61 SV 43.10 mL LV Vol Biplane MOD 75.8 mL SV Index 27.76 mL/m2 FS 32.65 % M-Mode TAPSE 2.46 cm (M/F) >1.7 LV Diastology MV E' medial 0.088 (>0.07 m/s) E/A Ratio 0.9 LV E/e MED 8.60 (<14) MV E Vmax 0.76 (0.4-1.3 m/s) MV E' lateral 0.089 (>0.1 m/s) MV A Vmax 0.80 (0.4-1.3 m/s) LV E/e LAT 8.50 (<14) MV E/A Ratio 0.91 MV E/E' medial 8.62 MV E/E' lateral 8.53 Aortic Valve LVOT Area 3.39 cm2 AoV Area Vmax 2.64 cm2 LVOT Vmax 0.81 m/s AoV Area/ BSA (Vmax) 1.70 cm2/m2 LVOT Mean Gerardo. 0.58 m/s JEFERSON Mean Gerardo. 2.56 cm2 LVOT Peak Grad 2.6 mmHg JEFERSON Mean Gerardo. Index 1.65 cm2/m2 LVOT Mean Grad 1.5 mmHg LVOT VTI 0.190 m LVOT Diam s 2.05 cm AoV Vmax 1.04 m/s Velocity Ratio 0.77 AoV Mean Gerardo. 0.77 m/s AoV Peak Grad 4.3 mmHg LVOT SV 64.29 mL AoV Mean Grad 2.6 mmHg AoV VTI 0.204 m AoV Area VTI 3.14 cm2 AoV Area/ BSA (VTI) 2.03 cm/m2 Mitral Valve MV DT 238 (160-240 msec) MV PHT 69 msec MV Area PHT 3.19 cm2 MV VTI 0.368 m MV Area VTI 1.74 (4.0-6.0 cm2) Pulmonary Valve PV Vmax 0.85 (0.5-1.5 m/s) RVOT Peak Gr. 1.52 mmHg PV Peak Grad 2.9 mmHg RVOT Mean Gr. 0.75 mmHg PV Mean Grad 1.5 mmHg RVOT VTI 0.131 m PV VTI 0.174 m RVOT Vmax 0.62 m/s Tricuspid Valve TR Peak Grad 24.6 mmHg TR Vmax 2.48 m/s RA Pressure 3.00 mmHg RVSP (TR) 27.7 mmHg
== END 2021-07-05 01:26 ==
PROVIDERS: PCP Family Medicine; Visit Provider Family Medicine
DX: J21.9 Acute bronchiolitis, unspecified (principal); R06.02 Shortness of breath; I08.1 Rheumatic disorders of both mitral and tricuspid valves
CPT/HCPCS: 93306

== ENCOUNTER 2021-07-29 01:26 | Outpatient (CLI) | payer MEDICARE, SELFPAY ==
--- NOTE | 2021-07-29 07:00 | DI.CT_ITS ---
Exam(s) CT CHEST HIGH RESOLUTION EXAM: CT CHEST HIGH RESOLUTION CLINICAL HISTORY: h/o MAC, worsening symptoms, concern for progression,sob,r06.02,a31.9. TECHNIQUE: Imaging protocol: Axial computed tomography images were obtained and coronal and sagittal reformatted images were created and reviewed. High-resolution images were also obtained. COMPARISON: CT CHEST FOR PULMONARY EMBOLUS from 01/04/2016 CT CHEST FOR PULMONARY EMBOLUS from 01/04/2016 CR XR PORTABLE CHEST AP from 03/23/2021 FINDINGS: Tracheobronchial tree: Patent where visualized. Pulmonary parenchyma: No focal consolidating infiltrates. There are calcified granuloma present. Th e lungs appear fairly lucent. There are prominent peripheral interstitial markings present. This in volves both the upper and lower lobes. No tree in bud pattern of infiltrate is seen. No pulmonary no dules are seen. There is no bronchiectasis. Mediastinum and Elicia: No dominant adenopathy or fluid collection. Stable mildly enlarged lymph nodes are seen in the mediastinum. The esophagus is unremarkable. Thyroid gland: Unremarkable. Pleura: No effusion or pneumothorax. Heart: The heart is not dilated. No coronary artery calcifications are seen. No significant pericardi al effusion. Aorta: Thoracic aorta non-dilated. Atherosclerosis. Upper abdomen: Unremarkable. Lymph nodes: Within normal limits. Soft tissues: Unremarkable. Bones:Within normal limits for the patient's age. IMPRESSION: 1. Mild subpleural interstitial thickening. Differential considerations include idiopathic pulmonary fibrosis or other causes of UIP, collagen vascular disease or drug related fibrosis and hypersensitiv ity pneumonitis. 2. No findings to suggest acute MAC infection. RADIATION DOSE DELIVERED: 420.58mGy.cm Total DLP 420.58mGy.cm Total DLP DATA REPOSITORY: All CT scans at this facility are submitted to the National Radiology Data Registry (NRDR) Dose Index Registry (DIR) with the [employer] (ACR). RADIATION OPTIMIZATION: All CT scans at this facility use at least one of these dose optimization te chniques: automated exposure control; mA and/or kV adjustment per patient size (includes targeted exa ms where dose is matched to clinical indication); or iterative reconstruction.
== END 2021-07-29 01:46 ==
PROVIDERS: PCP Family Medicine; Visit Provider Student in an Organized Health Care Education/Training Program
DX: R06.02 Shortness of breath (principal); A31.9 Mycobacterial infection, unspecified; R91.8 Other nonspecific abnormal finding of lung field
CPT/HCPCS: 71250

== ENCOUNTER 2021-08-08 04:21 | Outpatient (CLI) | payer MEDICARE, SELFPAY ==
[2021-08-08 13:49] LABS: ALT 20 U/L (14-59); AST 20 U/L (15-37); Albumin 3.4 g/dL (3.4-5.0); Alkaline Phosphatase 125 U/L (46-116); Anion Gap 7.4 mmol/L (3-11); BUN 10 mg/dL (7-18); Bilirubin, Total 0.2 mg/dL (0.2-1.0); CO2 28.6 mmol/L (21.0-32.0); CREATININE 0.8 mg/dL (0.55-1.02); Calcium 8.8 mg/dL (8.5-10.1); Chloride 99 mmol/L (98-107); Glucose 83 mg/dL (74-106); Potassium 4.8 mmol/L (3.5-5.1); Sodium 135 mmol/L (136-145); Total Protein 6.6 g/dL (6.4-8.2)
[2021-08-08 21:28] LABS: Rheumatoid Factor <8.6 IU/mL (<12.0)
[2021-08-09 10:32] LABS: Cyclic Citrullinated Peptide <2.5 U/mL (<5.0)
[2021-08-09 15:14] LABS: ANA Interpretation Positive (Negative); ANA Titer Pattern 1:160 Speckled
[2021-08-11 13:20] LABS: SS-B (La) Ab, IgG 1.3 Units (<20.0)
[2021-08-11 13:27] LABS: SS-A Antibody 1.2 Units (<20.0)
[2021-08-11 17:06] LABS: dsDNA Ab, IgG <12.3 IU/mL (<30.0)
[2021-08-16 17:18] LABS: Scl 70 Antibodies, IgG <0.2 U
[2021-08-24 16:46] LABS: Alter tenuis/alternata IgG <2.0 mcg/mL (<12.0); Aspergillus fumigatus IgG 9.3 mcg/mL (<46.0); Aureobasidium pullulans IgG 2.2 mcg/mL (<18.0); Micropolyspora faeni IgG <2.0 mcg/mL (<5.0); Penicillium Chrysogenum IgG 8.9 mcg/mL (<22.0); Phoma betae IgG <2.0 mcg/mL (<8.0); Thermoactinomyces vulgaris IgG 2.4 mcg/mL (<13.0)
[2021-08-30 12:00] LABS: Cockatiel Negative (Negative); Parakeet Negative (Negative); Parrot Negative (Negative); Pigeon DE Negative (Negative); Pigeon Sera Negative (Negative)
== END 2021-08-08 04:22 | disposition home or self-care (01) ==
LOC: LBO 04:21
PROVIDERS: PCP Family Medicine; Visit Provider Student in an Organized Health Care Education/Training Program
DX: E87.1 Hypo-osmolality and hyponatremia (principal); J84.9 Interstitial pulmonary disease, unspecified
CPT/HCPCS: 36415; 80053; 83516; 86001; 86200; 86235; 86038; 86225; 86331; 86431; 86606

== ENCOUNTER 2021-10-26 18:38 | Outpatient (REF) | payer MEDICARE, SELFPAY ==
[2021-10-26 13:28] LABS: Abs Immature Grans 0.03 10^3/uL (0.0-0.06); Absolute Basophil Count 0.06 10^3/uL (0.0-0.2); Absolute Eosinophil Count 0.14 10^3/uL (0.0-0.7); Absolute Lymphocyte Count 1.83 10^3/uL (1.2-3.4); Absolute Monocyte Count 0.79 10^3/uL (0.1-0.8); Absolute Neutrophil Count 4.91 10^3/uL (1.2-6.7); Basophils % 0.8; Eosinophils % 1.8; HCT 39.1 % (36.0-46.0); HGB 12.4 g/dL (11.2-15.7); Immature Grans % 0.4; Lymphocytes % 23.6; MCHC 31.7 % (32.0-36.0); MPV 10.8 fL (8.0-11.0); Monocytes % 10.2; Neutrophils % 63.2; Nucleated RBC 0 %; Platelet Count 278 10^3/uL (130-400); RDW 14.4 % (11.7-14.6); RDW-SD 45.1 fL; WBC 7.76 10^3/uL (4.4-10.8)
[2021-10-26 13:37] LABS: ALT 19 U/L (14-59); AST 21 U/L (15-37); Albumin 3.4 g/dL (3.4-5.0); Alkaline Phosphatase 94 U/L (46-116); Anion Gap 7.8 mmol/L (3-11); BUN 14 mg/dL (7-18); Bilirubin, Total 0.3 mg/dL (0.2-1.0); CO2 27.2 mmol/L (21.0-32.0); CREATININE 0.7 mg/dL (0.55-1.02); Calcium 8.7 mg/dL (8.5-10.1); Chloride 101 mmol/L (98-107); Glucose 85 mg/dL (74-106); Potassium 4.2 mmol/L (3.5-5.1); Sodium 136 mmol/L (136-145); Total Protein 6.3 g/dL (6.4-8.2)
[2021-10-26 14:59] LABS: Prothrombin Time 9.9 sec (9.3-11.0)
== END 2021-10-26 18:39 | disposition home or self-care (01) ==
LOC: LBN 18:38
PROVIDERS: PCP Family Medicine; Visit Provider Student in an Organized Health Care Education/Training Program
DX: J84.112 Idiopathic pulmonary fibrosis (principal); T14.8XXA Other injury of unspecified body region, initial encounter; R06.02 Shortness of breath
CPT/HCPCS: 80053; 85025; 85610

== ENCOUNTER 2021-11-02 01:31 | Outpatient (CLI) | payer MEDICARE, SELFPAY | END 2021-11-02 01:32 | disposition home or self-care (01) | PROVIDERS: PCP Family Medicine; Visit Provider Student in an Organized Health Care Education/Training Program | DX: J84.112 Idiopathic pulmonary fibrosis (principal) | CPT/HCPCS: 94618 ==

== ENCOUNTER 2022-06-05 12:16 | Outpatient (REF) | payer OTHER, SELFPAY | END 2022-06-05 12:17 | disposition home or self-care (01) | LOC: LBN 12:16 | PROVIDERS: PCP Family Medicine; Visit Provider Family Medicine | DX: N76.0 Acute vaginitis (principal) | CPT/HCPCS: 87480; 87510; 87660 ==

== ENCOUNTER → 2022-07-11 02:03 | Outpatient (CLI) | payer OTHER, SELFPAY ==
--- NOTE | 2022-07-11 07:30 | DI.DEXA_ITS ---
Exam(s) XR DEXA BONE DENSITY W/WO HALLE EXAM: XR DEXA BONE DENSITY W/WO HALLE CLINICAL HISTORY: osteoporosis,m81.0 TECHNIQUE: COMPARISON: CR XR DEXA BONE DENSITY W/WO HALLE from 05/06/2020 FINDINGS: Lateral Spine Image: Unremarkable. No compression deformities identified. Left hip: Total T-Score: -1.9. This compares to -1.6 on the prior examination. Total Z-Score: -0.1 T- and Z-scores: Findings are consistent with osteopenia. Lumbar Spine: Total T-Score: 0.6. This is unchanged compared to the prior examination. Total Z-Score: 3.1 T- and Z-scores: Within normal limits. IMPRESSION: No evidence of osteoporosis.
== END ==
PROVIDERS: PCP Family Medicine; Visit Provider Family Medicine
DX: M85.88 Other specified disorders of bone density and structure, other site (principal); Z13.820 Encounter for screening for osteoporosis
CPT/HCPCS: 77080

== ENCOUNTER 2022-08-25 11:29 | Outpatient (REF) | payer OTHER, SELFPAY ==
[2022-08-25 11:32] LABS: Abs Immature Grans 0.01 10^3/uL (0.0-0.06); Absolute Basophil Count 0.07 10^3/uL (0.0-0.2); Absolute Monocyte Count 0.73 10^3/uL (0.1-0.8); Basophils % 0.9; HCT 40.6 % (36.0-46.0); HGB 12.9 g/dL (11.2-15.7); Immature Grans % 0.1; MCHC 31.8 % (32.0-36.0); MCV 85 fL (80-95); MPV 10.8 fL (8.0-11.0); Monocytes % 9.7; Neutrophils % 57.3; Platelet Count 266 10^3/uL (130-400); RBC 4.77 10^6/uL (3.93-5.22); RDW 13.5 % (11.7-14.6); RDW-SD 42.3 fL; WBC 7.51 10^3/uL (4.4-10.8)
[2022-08-25 11:46] LABS: ALT 15 U/L (14-59); AST 23 U/L (15-37); Albumin 3.6 g/dL (3.4-5.0); Alkaline Phosphatase 110 U/L (46-116); Anion Gap 5.3 mmol/L (3-11); BUN 11 mg/dL (7-18); Bilirubin, Total 0.3 mg/dL (0.2-1.0); CO2 28.7 mmol/L (21.0-32.0); CREATININE 0.7 mg/dL (0.55-1.02); Calcium 8.8 mg/dL (8.5-10.1); Chloride 102 mmol/L (98-107); Estimated GFR 89.58 (mL/min/1.73m2); Glucose 86 mg/dL (74-106); Potassium 4.8 mmol/L (3.5-5.1); Sodium 136 mmol/L (136-145); Total Protein 6.8 g/dL (6.4-8.2)
== END 2022-08-25 11:30 | disposition home or self-care (01) ==
LOC: LBN 11:29
PROVIDERS: PCP Family Medicine; Visit Provider Student in an Organized Health Care Education/Training Program
DX: J84.112 Idiopathic pulmonary fibrosis (principal)
CPT/HCPCS: 80053; 85025

== ENCOUNTER 2022-09-08 14:24 | Emergency (ER) | payer OTHER, SELFPAY ==
[2022-09-08 14:27] VITALS: BP 164/80; PULSE 75; RESP 22; TEMP 36.7; O2SAT 99
[2022-09-08 15:52] VITALS: BP 168/74; PULSE 63; RESP 18; TEMP 36.7; O2SAT 98
--- NOTE | 2022-09-08 15:55 | NUR.NOTE ---
Nursing Note: Pt to room, notedly less anxious at this time, awaiting provider.
[2022-09-08 15:57] VITALS: RESP 20
--- NOTE | 2022-09-08 16:00 | RT.EKG_ITS ---
APPROVED REPORT Exam: Resting ECG Reason for Exam: anxiety Patient Location: E HR:64 bpm ECG Measurements Heart Rate 64 AXIS OK 68 P -62 QRSd 83 QRS 27 QT 394 T 46 QTc 406 Conclusion Sinus or ectopic atrial rhythm...P axis (-45,135) Physician: no stemi, stable
--- NOTE | 2022-09-08 16:02 | W.ED.GENAD ---
Discharge Plan Disposition Patient Disposition: Home Condition: Stable Discharge Details Clinical Impression: Anxiety, Insomnia Primary Care Provider: Carrie Mejias ED Provider: Trish Hernandez Home Meds and New Rx's Prescriptions: Continued garlic [garlic oil] 1,000 mg capsule 2,000 mg PO DAILY albuterol sulfate [ProAir HFA] 90 mcg/actuation HFA aerosol inhaler 2 puff Inhalation Q4H PRN Qty: 1 12RF metoclopramide HCl 10 mg tablet 10 mg PO BID PRN (Reason: nausea and vomiting) Qty: 180 4RF omeprazole 20 mg capsule,delayed release(DR/EC) 20 mg PO BID Qty: 60 8RF PEAK FLOW METER Rx Instructions: USE WHEN YOUR BREATHING WORSENS fluconazole 150 mg tablet 150 mg PO QWEEK PRN (Reason: yeast) Qty: 12 4RF oxybutynin chloride 10 mg tablet extended release 24hr 10 mg PO DAILY Qty: 90 12RF estradiol [Yuvafem] 10 mcg tablet 10 mcg VG .3 times weekly Qty: 36 4RF pirfenidone [Esbriet] 267 mg tablet 267 mg PO TID Qty: 90 0RF Rx Instructions: administer with food at the same time(s) each day Dulera 100-5 mcg/actuation HFA aerosol inhaler 2 puff inhalation BID Qty: 13 12RF acetaminophen [Acetaminophen Extra Strength] 500 mg tablet 1,000 mg PO TID PRN PRN (Reason: pain) Qty: 100 6RF psyllium Packet 1 packet PO BID cyanocobalamin (vitamin B-12) 5,000 mcg Capsule 5,000 mcg PO DAILY Discharge Instructions Instructions: Anxiety (ED) Additional Instructions: You may take the Ativan 1 every 4-6 hours as needed for sleeplessness. If you get home and you are unable to go to sleep you may take this tablet. Do not mix with alcohol. Do not drive while taking this medication. It may make you dizzy. Please return to the ER if you have worsening chest pain not relieved by Tylenol or ibuprofen, pain that radiates down your arm or up your neck and a sweaty feeling. Please try to lay down at home and go to sleep. Do not take the [id number]-ibl-[id number] sleep medication again. Follow up with primary care provider in 3-5 days. Return to ED sooner if any worsening or concerns. Increase oral fluids. Referrals: Carrie Mejias MD, [place] [Primary Care Provider] - 5 days Discharge Data Discharge Date/Time-TO BE ENTERED AT DEPARTURE: 09/08/22 17:55 Medical Decision Making 77 year old female with PMhx of Gerd, Insomnia, Interstitial lung disease presents with CC of anxiety and not being able to sleep last night. She is c/o some chest pressure. Denies any N/V/D, Diaphoresis or any other associated symptoms. She took some OTC sleep medications in a white bottle from [employer] that she does not know the name f. They did the opposite and didn't help. VSS, A&O x 4. EKG ordered and performed, EKG was reviewed by Dr. Fer Ceron ER attending, old EKG available for review please see official report. No STEMI. Lorazepam 0.5mg PO given. Will re-eval. 1729: Patient reevaluation she reports that she feels much better less anxious appearing. She reports she had some capo genesis on and burped and her chest pressure is more resolved. I did discuss strict return instructions she verbalizes understanding. We will send patient home with #1 0.5 mg lorazepam p.o. I did encourage her not to take that sleeping pill medication again. She verbalizes understanding. This text was generated using [employer] dictation system, please disregard any oddities of phrase or misspellings. HPI General Mode of arrival: ambulatory. Date/Time Provider Initiated Documentation: 09/08/22 15:54. Limitations to Documentation: no limitations. Information obtained by: patient, RN notes reviewed and old records reviewed. HPI Narrative: 77 year old female with PMhx of Gerd, Insomnia, Interstitial lung disease presents with CC of anxiety and not being able to sleep last night. She is c/o some chest pressure. Denies any N/V/D, Diaphoresis or any other associated symptoms. She took some OTC sleep medications in a white bottle from [employer] that she does not know the name of and it didn't help. VSS, A&O x 4. Related Data Home Medications Medication Instructions Recorded Confirmed Peak Flow Meter 10/29/12 08/25/22 cyanocobalamin (vitamin B-12) 5,000 mcg PO DAILY 03/23/21 08/25/22 5,000 mcg capsule psyllium 1 packet PO BID 03/23/21 08/25/22 fluconazole 150 mg tablet 150 mg PO QWEEK PRN yeast #12 tabs 05/02/22 08/25/22 oxybutynin chloride 10 mg 10 mg PO DAILY #90 tab-caps 05/02/22 08/25/22 tablet,extended release 24 hr estradiol 10 mcg vaginal tablet 10 mcg vaginal .3 times weekly #36 06/02/22 08/25/22 (Yuvafem) tabs albuterol sulfate 90 mcg/actuation 2 puff inhalation Q4H PRN ##1 06/05/22 08/25/22 aerosol inhaler (ProAir HFA) garlic 1,000 mg capsule (garlic 2,000 mg PO DAILY 06/05/22 08/25/22 oil) metoclopramide HCl 10 mg tablet 10 mg PO BID PRN nausea and 06/05/22 08/25/22 vomiting #180 tabs pirfenidone 267 mg tablet (Esbriet) 267 mg PO TID #90 tabs 06/23/22 08/25/22 mometasone-formoterol HFA 100 2 puff inhalation BID #13 grams 07/31/22 08/25/22 mcg-5 mcg/actuation aerosol inhaler (Dulera) acetaminophen 500 mg tablet 1,000 mg PO TID PRN PRN pain #100 08/25/22 (Acetaminophen Extra Strength) tabs omeprazole 20 mg capsule,delayed 20 mg PO BID #60 caps 08/25/22 08/25/22 release Previous Rx's Medication Instructions Recorded fluconazole 150 mg tablet 150 mg PO QWEEK PRN yeast #12 tabs 05/02/22 oxybutynin chloride 10 mg 10 mg PO DAILY #90 tab-caps 05/02/22 tablet,extended release 24 hr estradiol 10 mcg vaginal tablet 10 mcg vaginal .3 times weekly #36 06/02/22 (Yuvafem) tabs albuterol sulfate 90 mcg/actuation 2 puff inhalation Q4H PRN ##1 06/05/22 aerosol inhaler (ProAir HFA) metoclopramide HCl 10 mg tablet 10 mg PO BID PRN nausea and 06/05/22 vomiting #180 tabs pirfenidone 267 mg tablet (Esbriet) 267 mg PO TID #90 tabs 06/23/22 mometasone-formoterol HFA 100 2 puff inhalation BID #13 grams 07/31/22 mcg-5 mcg/actuation aerosol inhaler (Dulera) acetaminophen 500 mg tablet 1,000 mg PO TID PRN PRN pain #100 08/25/22 (Acetaminophen Extra Strength) tabs omeprazole 20 mg capsule,delayed 20 mg PO BID #60 caps 08/25/22 release Allergies Allergy/AdvReac Type Severity Reaction Status Date / Time clavulanic acid Allergy Severe Verified 08/25/22 08:57 [From Augmentin] tuberculin, purified protein Allergy Unknown Verified 08/25/22 08:57 deriva bupropion AdvReac AGITATION Verified 08/25/22 08:57 codeine AdvReac NAUSEA/VOMI Verified 08/25/22 08:57 TING General Stated Complaint: Anxiety MEI: 4 Review of Systems All systems reviewed & are unremarkable except as noted in HPI and below Constitutional Constitutional: Reports as per HPI, Denies chills and Denies fever(s) Cardiovascular Cardiovascular: Reports chest pain, Denies pedal edema, Denies leg edema and Denies palpitations Gastrointestinal Gastrointestinal: Denies abdominal pain, Denies melena, Denies diarrhea, Denies nausea and Denies vomiting Neurologic Neurologic: Denies confusion Psychiatric Psychiatric: Reports abnormal sleep pattern, Reports anxiety, Denies confusion, Denies hopelessness, Denies homicidal ideation and Denies suicidal ideation Endocrine Endocrine: Denies palpitations PFSH All Active Problems (Updated 09/08/22 @ 17:32 by Trish Hernandez NP) Anxiety (Chronic) Insomnia (Acute) IPF (idiopathic pulmonary fibrosis) (Acute) GERD (gastroesophageal reflux disease) (Chronic) Mycobacterial infection, atypical (Acute) Shortness of breath (Acute) Allergic rhinitis (Chronic) Balance problems (Acute) Falls frequently (Acute) Urinary frequency (Chronic 08/17/17) Tear of left supraspinatus tendon (Chronic 09/04/17) mri 09/03/17 Seborrheic keratoses (Chronic 01/11/16) LEFT CHEEK, SCAPULA Low back pain (Chronic 01/02/17) Insomnia (Chronic) Hypercholesterolemia (Chronic) Fatigue (Chronic 07/12/02) Multiple extensive work ups without etiology Depressive disorder (Chronic) Constipation (Chronic 08/10/14) Complete tear of right rotator cuff (Chronic 12/12/17) Bruising (Chronic 02/22/15) Bronchiolitis (Chronic) 02/11/[facility] 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 AVOID AZITHROMAX - SEE NOTE VJ 06/30/16 SOB Atrophic vaginitis (Chronic) Medical History (Updated 09/08/22 @ 17:32 by Trish Hernandez NP) Abnormal chest CT Abnormal laboratory test decreased cortisol w/retesting normal Benign neoplasm of skin of perineum benign lesion-resolved Depressive disorder Ear problem (12/03/07) PERFERATED EARDRUM Insomnia Interstitial lung disease Low back pain Malignant neoplasm of cervix uteri hyst;single ovary remains 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) Primary malignant neoplasm of cervix Weight loss (03/12/18) Surgical History Abdominal hysterectomy single ovary remains Appendectomy Colonoscopy - MAC (~2006) Colonoscopy - MAC (10/05/17) H/O bilateral salpingo-oophorectomy HERNIA REPAIR Ligation of fallopian tube BSO Open Carpal Tunnel release S/P abdominal hysterectomy one ovary remains S/P appendectomy S/P carpal tunnel release S/P hernia repair Status post abdominal hysterectomy Status post appendectomy Status post carpal tunnel release Status post hernia repair Family History (Updated 06/07/22 @ 16:02 by Negrita James) Mother , 2 Emphysema of lung Stroke COPD (chronic obstructive pulmonary disease) Asthma Father , 85 Lung cancer Brother , 85 COPD (chronic obstructive pulmonary disease) Lung cancer Maternal Grandfather No problems noted. Paternal Grandfather No problems noted. Maternal Grandmother No problems noted. Paternal Grandmother No problems noted. Brother , 70 Diabetes Colon cancer Sister , 80 Diabetes Lung cancer Sister , 81 Cancer Social History (Updated 06/07/22 @ 16:02 by Negrita James) Smoking/Tobacco Use Status: Never Second Hand Exposure: Yes Smoking risk assessment performed?: Yes Alcohol Intake: current Alcohol Intake frequency: a few times a week Alcohol type: wine Drug use: Never Substance use type: does not use Household members: spouse Housing: house Do you need help understanding health information?: Often Pets and animals: Yes Pets and animals: cat(s) Sexually active: Yes Do you think of yourself as: straight/heterosexual What is your relationship status?: How often do you talk on the phone with friends or family?: twice per week How often do you get together with friends or relatives?: once per week How often do you attend restorationism or jain services?: decline to answer Do you belong to any clubs or organized social groups?: no Panel score (0-1 are the most socially isolated patients): 2 What type of physical activity do you participate in: walking Duration: 30-45 minutes/day Frequency: 3-4 times per week Annelise/Cheondoism: No preference Special annelise needs: No Seatbelt use: always Drive intox or ride w/intox skidder driver: No Do you feel safe at home: Yes Do you feel safe in your relationship?: Yes Exam Narrative Exam Narrative: Constitutional: Alert and oriented x3. Appears stated age. Normal body habitus. Head: Normocephalic, no trauma. Eyes: Pupils PERRL, Red reflex noted, EOM's intact. Eyelids symmetrical without lesions, discharge, or swelling. ENT: Bilateral TM's WNL, External ear normal to inspection, no mastoid TTP, swelling, or erythema, Nasal turbinates WNL, no nasal discharge. Normal dentition, Posterior pharynx WNL, no exudate. Chest: RRR, Normal S1, S2, distal pulses intact. Resp: Lungs clear to auscultation bilaterally, no wheezes, rales, or rhonchi. Abdomen: Soft, non-distended, Normoactive bowel sounds all 4 quads. Musculoskeletal: Normal gait, 5/5 strength to all four extremities. Skin: No suspicious rashes or lesions. Capillary refill less than 2 sec. Neurologic: Cranial nerves II-XII intact. Alert and oriented x 3. Motor: No deficits noted. Sensory: Intact bilaterally all 4 extremities. Hematologic/Lymphatic: No ecchymosis, no lymphadenopathy. Psychiatric: See below Psych Appearance: grossly normal and well kempt Speech and Movement: agitated, speech clear, pressured speech, restless and speech not slurred Mood: anxious mood Affect: anxious affect Attitude: cooperative Thought Process: normal Thought Content: normal Insight: insight good Judgment: judgment good Course Vital Signs Vital signs: Vital Signs Temperature 36.7 C 09/08/22 14:27 Pulse 75 09/08/22 14:27 Respiratory Rate 22 09/08/22 14:27 Blood Pressure 164/80 H 09/08/22 14:27 Pulse Oximetry 99 09/08/22 14:27 Temperature 36.7 C 09/08/22 15:52 Temperature Source Oral 09/08/22 15:52 Pulse 63 09/08/22 15:52 Respiratory Rate 18 09/08/22 15:52 Respiratory Effort 09/08/22 14:36 Blood Pressure 168/74 H 09/08/22 15:52 Blood Pressure Position Sitting 09/08/22 14:27 Pulse Oximetry 98 09/08/22 15:52 Oxygen Delivery Method Room Air 09/08/22 14:27 Oxygen Flow Rate 0 09/08/22 14:27 Pain Level 0 09/08/22 14:27
[2022-09-08] MEDS: LORazepam 0.5 MG TAB PO ×2 (16:16→17:53)
[2022-09-08 17:40] VITALS: BP 143/82; PULSE 75; RESP 20; TEMP 37.5; O2SAT 99
== END 2022-09-08 17:55 | disposition home or self-care (01) ==
PROVIDERS: Emergency Provider Registered Nurse Emergency; PCP Family Medicine
DX: F41.9 Anxiety disorder, unspecified (principal); G47.00 Insomnia, unspecified; R07.89 Other chest pain; R45.1 Restlessness and agitation
CPT/HCPCS: 93005; 99283; 93010; 99284

== ENCOUNTER 2022-09-09 14:32 | Emergency (ER) | payer OTHER, SELFPAY ==
[2022-09-09 14:44] VITALS: BP 159/70; PULSE 74; RESP 18; TEMP 36.9; O2SAT 99
[2022-09-09 14:47] VITALS: RESP 18
--- NOTE | 2022-09-09 16:00 | DI.RAD_ITS ---
Exam(s) XR CHEST 2V PA LATERAL EXAM: XR CHEST 2V PA LATERAL CLINICAL HISTORY: Chest Back pain, Hx of Pulm Fibrosis TECHNIQUE: 2D digital imaging was performed. COMPARISON: CR XR PORTABLE CHEST AP from 03/23/[address] CHEST HIGH RESOLUTION from 07/29/2021 FINDINGS: HEART: Normal size. Aorta: Not dilated. PULMONARY VASCULATURE: Normal. LUNGS: Fibrotic changes. No focal infiltrates or pulmonary edema. Mild hyperinflation. PLEURAL SPACE: No pleural effusion or pneumothorax. BONE:Unremarkable for age. IMPRESSION: No acute abnormality. DATA REPOSITORY: RADIATION DOSE DELIVERED:
--- NOTE | 2022-09-09 16:00 | RT.EKG_ITS ---
APPROVED REPORT Exam: Resting ECG Reason for Exam: Anxiety, Chest and back pain Patient Location: E HR:70 bpm ECG Measurements Heart Rate 70 AXIS MI 138 P -51 QRSd 83 QRS 17 QT 393 T 53 QTc 425 Conclusion Sinus rhythm.
--- NOTE | 2022-09-09 16:08 | W.ED.GENAD ---
Discharge Plan Disposition Patient Disposition: Home Condition: Stable Discharge Details Clinical Impression: Anxiety, Low back pain Primary Care Provider: Carrie Mejias ED Provider: Trish Hernandez Home Meds and New Rx's Prescriptions: New lorazepam [Ativan] 0.5 mg tablet 0.5 mg PO QHS PRN (Reason: anxiety) Qty: 3 0RF Rx Instructions: Take one tablet before bedtime as needed for anxiety No Action garlic [garlic oil] 1,000 mg capsule 2,000 mg PO DAILY albuterol sulfate [ProAir HFA] 90 mcg/actuation HFA aerosol inhaler 2 puff Inhalation Q4H PRN Qty: 1 12RF metoclopramide HCl 10 mg tablet 10 mg PO BID PRN (Reason: nausea and vomiting) Qty: 180 4RF omeprazole 20 mg capsule,delayed release(DR/EC) 20 mg PO BID Qty: 60 8RF PEAK FLOW METER Rx Instructions: USE WHEN YOUR BREATHING WORSENS fluconazole 150 mg tablet 150 mg PO QWEEK PRN (Reason: yeast) Qty: 12 4RF oxybutynin chloride 10 mg tablet extended release 24hr 10 mg PO DAILY Qty: 90 12RF estradiol [Yuvafem] 10 mcg tablet 10 mcg VG .3 times weekly Qty: 36 4RF pirfenidone [Esbriet] 267 mg tablet 267 mg PO TID Qty: 90 0RF Rx Instructions: administer with food at the same time(s) each day Dulera 100-5 mcg/actuation HFA aerosol inhaler 2 puff inhalation BID Qty: 13 12RF acetaminophen [Acetaminophen Extra Strength] 500 mg tablet 1,000 mg PO TID PRN PRN (Reason: pain) Qty: 100 6RF lorazepam 0.5 mg tablet 0.5 mg PO BID PRN (Reason: anxiety) Qty: 10 0RF psyllium Packet 1 packet PO BID cyanocobalamin (vitamin B-12) 5,000 mcg Capsule 5,000 mcg PO DAILY Discharge Instructions Instructions: Low Back Strain (ED), Anxiety (ED) Additional Instructions: Take the medications as directed. There is no evidence for heart attack on your EKG or labs at this time. Your sodium was slightly low so increase your sodium intake over the next couple of days. Follow up with primary care provider in 3-5 days to discuss further care for the anxiety. Return to ED sooner if any worsening or concerns. Increase oral fluids. You may also call [facility] [employer] at [phone] to speak with somebody about the anxiety. Referrals: [facility] [Outside] Carrie Mejias MD, [place] [Primary Care Provider] - 5 days Medical Decision Making 77-year-old female presents to the ER with chief complaint of continued anxiety and worsening back pain after being seen here yesterday for same. She also reports some mild chest pressure which was present yesterday. She does have a past medical history of idiopathic pulmonary fibrosis, anxiety, and insomnia GERD positive Hinton test in 2007, cervical cancer. Work-up ordered including serial troponins and EKG due to continued chest pressure and back pain which is worsening. Chest x-ray ordered. CBC shows no leukocytosis, CMP shows sodium 130 potassium 4.0 chloride 95, magnesium 2.0, initial troponin less than 50. 1805: Patient reevaluation she reports somewhat improvement after the 0.5 of lorazepam. I did discuss follow-up with PCP and results and x-ray and EKG results she verbalized understanding. Lidocaine patch was placed by staff home therapy rn to her back. Patient will be discharged with #2 0.5 lorazepam tablets to go and a prescription with 3 tablets. I did instruct her to follow-up with her PCP for any further treatment of her anxiety and insomnia. We will give her a crisis referral number for [facility] as well. Patient reports feeling better prior to discharge. This text was generated using [employer] dictation system, please disregard any oddities of phrase or misspellings. Medical Records Medical records reviewed: Yes I reviewed the patient's medical records. Imaging Data Radiologic Study: Imaging: X-Ray Radiologist's impression: Imaging protocol: Radiologic exam of the chest. Views: 2 views. COMPARISON: CT CHEST HIGH RESOLUTION 07/29/2021 8:27 AM FINDINGS: Lungs: Moderate to severe bilateral hyperinflation suggesting underlying emphysema/COPD. No acute infiltrates or edema. Pleural spaces: No pleural effusion. Heart/Mediastinum: Normal heart size. Bones/joints: Thoracic spine degenerative disease. IMPRESSION: 1. Emphysema/COPD. 2. No acute infiltrates or edema. No pleural effusions. Lab Data Lab results reviewed: Yes I reviewed the patient's lab results. Labs: Laboratory Tests Range/Units 09/09/22 09/09/22 09/09/22 16:30 16:30 19:01 WBC (4.4-10.8) 10^3/uL 6.95 RBC (3.93-5.22) 10^6/uL 4.98 Hgb (11.2-15.7) g/dL 13.3 Hct (36.0-46.0) % 42.1 MCV (80-95) fL 85 MCH (27.0-33.0) pg 26.7 L MCHC (32.0-36.0) % 31.6 L RDW (11.7-14.6) % 13.3 Plt Count (130-400) 10^3/uL 269 MPV (8.0-11.0) fL 10.2 Immature Gran % 0.3 Neutrophils % 57.8 Lymphocytes % 30.2 Monocytes % 9.4 Eosinophils % 1.6 Basophils % 0.7 Nucleated RBC % (0.0-0.3) % 0.0 Absolute Neutrophils (1.2-6.7) 10^3/uL 4.02 Absolute Lymphocytes (1.2-3.4) 10^3/uL 2.10 Absolute Monocytes (0.1-0.8) 10^3/uL 0.65 Absolute Eosinophils (0.0-0.7) 10^3/uL 0.11 Absolute Basophils (0.0-0.2) 10^3/uL 0.05 Sodium (136-145) mmol/L 130 L Potassium (3.5-5.1) mmol/L 4.0 Chloride (98-107) mmol/L 95 L Carbon Dioxide (21.0-32.0) mmol/L 27.4 Anion Gap (3-11) mmol/L 7.6 BUN (7-18) mg/dL 7 Creatinine (0.55-1.02) mg/dL 0.8 Est GFR (CKD-EPI 2020) (mL/min/1.73m2) 76.31 Glucose (74-106) mg/dL 103 Calcium (8.5-10.1) mg/dL 9.3 Magnesium (1.8-2.4) mg/dL 2.0 Total Bilirubin (0.2-1.0) mg/dL 0.4 AST (15-37) U/L 28 ALT (14-59) U/L 18 Alkaline Phosphatase (46-116) U/L 114 Troponin I (<or=60) ng/L < 50 Cancelled Total Protein (6.4-8.2) g/dL 7.9 Albumin (3.4-5.0) g/dL 4.3 HPI General Mode of arrival: ambulatory. Date/Time Provider Initiated Documentation: 09/09/22 14:33. Limitations to Documentation: no limitations. Information obtained by: patient, family, RN notes reviewed and old records reviewed. HPI Narrative: 77-year-old female presents to the ER with chief complaint of continued anxiety and worsening back pain after being seen here yesterday for same. She also reports some mild chest pressure which was present yesterday. She does have a past medical history of idiopathic pulmonary fibrosis, anxiety, and insomnia GERD positive Hinton test in 2007, cervical cancer. Surgical history includes hysterectomy, appendectomy, hernia repair. She did take a 0.5 mg lorazepam p.o. last night which was given to her by me. Related Data Home Medications Medication Instructions Recorded Confirmed Peak Flow Meter 10/29/12 08/25/22 cyanocobalamin (vitamin B-12) 5,000 mcg PO DAILY 03/23/21 09/09/22 5,000 mcg capsule psyllium 1 packet PO BID 03/23/21 09/09/22 fluconazole 150 mg tablet 150 mg PO QWEEK PRN yeast #12 tabs 05/02/22 09/09/22 oxybutynin chloride 10 mg 10 mg PO DAILY #90 tab-caps 05/02/22 09/09/22 tablet,extended release 24 hr estradiol 10 mcg vaginal tablet 10 mcg vaginal .3 times weekly #36 06/02/22 09/09/22 (Yuvafem) tabs albuterol sulfate 90 mcg/actuation 2 puff inhalation Q4H PRN ##1 06/05/22 09/09/22 aerosol inhaler (ProAir HFA) garlic 1,000 mg capsule (garlic 2,000 mg PO DAILY 06/05/22 09/09/22 oil) metoclopramide HCl 10 mg tablet 10 mg PO BID PRN nausea and 06/05/22 09/09/22 vomiting #180 tabs pirfenidone 267 mg tablet (Esbriet) 267 mg PO TID #90 tabs 06/23/22 09/09/22 mometasone-formoterol HFA 100 2 puff inhalation BID #13 grams 07/31/22 09/09/22 mcg-5 mcg/actuation aerosol inhaler (Dulera) acetaminophen 500 mg tablet 1,000 mg PO TID PRN PRN pain #100 08/25/22 09/09/22 (Acetaminophen Extra Strength) tabs omeprazole 20 mg capsule,delayed 20 mg PO BID #60 caps 08/25/22 09/09/22 release lorazepam 0.5 mg tablet 0.5 mg PO BID PRN anxiety #10 tabs 09/09/22 09/09/22 lorazepam 0.5 mg tablet (Ativan) 0.5 mg PO QHS PRN anxiety #3 tabs 09/09/22 Previous Rx's Medication Instructions Recorded fluconazole 150 mg tablet 150 mg PO QWEEK PRN yeast #12 tabs 05/02/22 oxybutynin chloride 10 mg 10 mg PO DAILY #90 tab-caps 05/02/22 tablet,extended release 24 hr estradiol 10 mcg vaginal tablet 10 mcg vaginal .3 times weekly #36 06/02/22 (Yuvafem) tabs albuterol sulfate 90 mcg/actuation 2 puff inhalation Q4H PRN ##1 06/05/22 aerosol inhaler (ProAir HFA) metoclopramide HCl 10 mg tablet 10 mg PO BID PRN nausea and 06/05/22 vomiting #180 tabs pirfenidone 267 mg tablet (Esbriet) 267 mg PO TID #90 tabs 06/23/22 mometasone-formoterol HFA 100 2 puff inhalation BID #13 grams 07/31/22 mcg-5 mcg/actuation aerosol inhaler (Dulera) acetaminophen 500 mg tablet 1,000 mg PO TID PRN PRN pain #100 08/25/22 (Acetaminophen Extra Strength) tabs omeprazole 20 mg capsule,delayed 20 mg PO BID #60 caps 08/25/22 release lorazepam 0.5 mg tablet 0.5 mg PO BID PRN anxiety #10 tabs 09/09/22 lorazepam 0.5 mg tablet (Ativan) 0.5 mg PO QHS PRN anxiety #3 tabs 09/09/22 Allergies Allergy/AdvReac Type Severity Reaction Status Date / Time clavulanic acid Allergy Severe Verified 09/09/22 14:46 [From Augmentin] tuberculin, purified protein Allergy Unknown Verified 09/09/22 14:46 deriva bupropion AdvReac AGITATION Verified 09/09/22 14:46 codeine AdvReac NAUSEA/VOMI Verified 09/09/22 14:46 TING General Stated Complaint: Anxiety MEI: 4 Review of Systems All systems reviewed & are unremarkable except as noted in HPI and below Cardiovascular Cardiovascular: Reports as per HPI and Reports chest pain Musculoskeletal Musculoskeletal: Reports back pain, Denies numbness and Denies tingling Neurologic Neurologic: Denies numbness and Denies tingling Psychiatric Psychiatric: Reports abnormal sleep pattern and Reports anxiety PFSH All Active Problems (Updated 09/09/22 @ 18:13 by Trish Hernandez NP) Anxiety (Chronic) Insomnia (Acute) IPF (idiopathic pulmonary fibrosis) (Acute) GERD (gastroesophageal reflux disease) (Chronic) Mycobacterial infection, atypical (Acute) Shortness of breath (Acute) Allergic rhinitis (Chronic) Balance problems (Acute) Falls frequently (Acute) Urinary frequency (Chronic 08/17/17) Tear of left supraspinatus tendon (Chronic 09/04/17) mri 09/03/17 Seborrheic keratoses (Chronic 01/11/16) LEFT CHEEK, SCAPULA Low back pain (Chronic 01/02/17) Insomnia (Chronic) Hypercholesterolemia (Chronic) Fatigue (Chronic 07/12/02) Multiple extensive work ups without etiology Depressive disorder (Chronic) Constipation (Chronic 08/10/14) Complete tear of right rotator cuff (Chronic 12/12/17) Bruising (Chronic 02/22/15) Bronchiolitis (Chronic) 02/11/16-[facility] 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 AVOID AZITHROMAX - SEE NOTE VJ 06/30/16 SOB Atrophic vaginitis (Chronic) Medical History Abnormal chest CT Abnormal laboratory test decreased cortisol w/retesting normal Benign neoplasm of skin of perineum benign lesion-resolved Depressive disorder Ear problem (12/03/07) PERFERATED EARDRUM Insomnia Interstitial lung disease Low back pain Malignant neoplasm of cervix uteri hyst;single ovary remains 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) Primary malignant neoplasm of cervix Weight loss (03/12/18) Surgical History Abdominal hysterectomy single ovary remains Appendectomy Colonoscopy - MAC (~2006) Colonoscopy - MAC (10/05/17) H/O bilateral salpingo-oophorectomy HERNIA REPAIR Ligation of fallopian tube BSO Open Carpal Tunnel release S/P abdominal hysterectomy one ovary remains S/P appendectomy S/P carpal tunnel release S/P hernia repair Status post abdominal hysterectomy Status post appendectomy Status post carpal tunnel release Status post hernia repair Family History Mother , 2 Emphysema of lung Stroke COPD (chronic obstructive pulmonary disease) Asthma Father , 85 Lung cancer Brother , 85 COPD (chronic obstructive pulmonary disease) Lung cancer Maternal Grandfather No problems noted. Paternal Grandfather No problems noted. Maternal Grandmother No problems noted. Paternal Grandmother No problems noted. Brother , 70 Diabetes Colon cancer Sister , 80 Diabetes Lung cancer Sister , 81 Cancer Social History Smoking/Tobacco Use Status: Never Second Hand Exposure: Yes Smoking risk assessment performed?: Yes Alcohol Intake: current Alcohol Intake frequency: a few times a week Alcohol type: wine Drug use: Never Substance use type: does not use Household members: spouse Housing: house Do you need help understanding health information?: Often Pets and animals: Yes Pets and animals: cat(s) Sexually active: Yes Do you think of yourself as: straight/heterosexual What is your relationship status?: How often do you talk on the phone with friends or family?: twice per week How often do you get together with friends or relatives?: once per week How often do you attend anabaptism or oriental orthodox services?: decline to answer Do you belong to any clubs or organized social groups?: no Panel score (0-1 are the most socially isolated patients): 2 What type of physical activity do you participate in: walking Duration: 30-45 minutes/day Frequency: 3-4 times per week Annelise/Episcopalian: No preference Special annelise needs: No Seatbelt use: always Drive intox or ride w/intox emt driver: No Do you feel safe at home: Yes Do you feel safe in your relationship?: Yes Exam Narrative Exam Narrative: Constitutional: Alert and oriented x3. Appears stated age. Normal body habitus. Head: Normocephalic, no trauma. Eyes: Pupils PERRL, Red reflex noted, EOM's intact. Eyelids symmetrical without lesions, discharge, or swelling. ENT: Bilateral TM's WNL, External ear normal to inspection, no mastoid TTP, swelling, or erythema, Nasal turbinates WNL, no nasal discharge. Normal dentition, Posterior pharynx WNL, no exudate. Chest: RRR, Normal S1, S2, distal pulses intact. Resp: Lungs clear to auscultation bilaterally, no wheezes, rales, or rhonchi. Abdomen: Soft, non-distended, Normoactive bowel sounds all 4 quads. Musculoskeletal: Normal gait, 5/5 strength to all four extremities. Skin: No suspicious rashes or lesions. Capillary refill less than 2 sec. Neurologic: Cranial nerves II-XII intact. Alert and oriented x 3. Motor: No deficits noted. Sensory: Intact bilaterally all 4 extremities. Reflexes: DTR's intact bilaterally.. Hematologic/Lymphatic: No ecchymosis, no lymphadenopathy. Course Vital Signs Vital signs: Vital Signs Temperature 36.9 C 09/09/22 14:44 Pulse 74 09/09/22 14:44 Respiratory Rate 18 09/09/22 14:44 Blood Pressure 159/70 H 09/09/22 14:44 Pulse Oximetry 99 09/09/22 14:44 Temperature 36.9 C 09/09/22 14:44 Temperature Source Skin 09/09/22 14:44 Pulse 74 09/09/22 14:44 Respiratory Rate 18 09/09/22 14:47 Respiratory Effort 09/09/22 14:47 Respiratory Depth Normal 09/09/22 14:47 Respiratory Pattern Normal 09/09/22 14:47 Blood Pressure 159/70 H 09/09/22 14:44 Blood Pressure Position Sitting 09/09/22 14:44 Pulse Oximetry 99 09/09/22 14:44 Oxygen Delivery Method Room Air 09/09/22 14:44 Oxygen Flow Rate 0 09/09/22 14:44 Pain Level 10 09/09/22 14:44
[2022-09-09 16:46] LABS: Abs Immature Grans 0.02 10^3/uL (0.0-0.06); Absolute Basophil Count 0.05 10^3/uL (0.0-0.2); Absolute Eosinophil Count 0.11 10^3/uL (0.0-0.7); Absolute Monocyte Count 0.65 10^3/uL (0.1-0.8); Absolute Neutrophil Count 4.02 10^3/uL (1.2-6.7); Basophils % 0.7; Eosinophils % 1.6; HCT 42.1 % (36.0-46.0); HGB 13.3 g/dL (11.2-15.7); Immature Grans % 0.3; Lymphocytes % 30.2; MCH 26.7 pg (27.0-33.0); MCHC 31.6 % (32.0-36.0); MCV 85 fL (80-95); MPV 10.2 fL (8.0-11.0); Monocytes % 9.4; Neutrophils % 57.8; Platelet Count 269 10^3/uL (130-400); RBC 4.98 10^6/uL (3.93-5.22); RDW 13.3 % (11.7-14.6); RDW-SD 41.3 fL; WBC 6.95 10^3/uL (4.4-10.8)
[2022-09-09 17:04] LABS: ALT 18 U/L (14-59); AST 28 U/L (15-37); Albumin 4.3 g/dL (3.4-5.0); Alkaline Phosphatase 114 U/L (46-116); Anion Gap 7.6 mmol/L (3-11); BUN 7 mg/dL (7-18); Bilirubin, Total 0.4 mg/dL (0.2-1.0); CO2 27.4 mmol/L (21.0-32.0); CREATININE 0.8 mg/dL (0.55-1.02); Calcium 9.3 mg/dL (8.5-10.1); Chloride 95 mmol/L (98-107); Estimated GFR 76.31 (mL/min/1.73m2); Glucose 103 mg/dL (74-106); Sodium 130 mmol/L (136-145); Total Protein 7.9 g/dL (6.4-8.2); Troponin I < 50 ng/L (<or=60)
[2022-09-09] MEDS: LORazepam 0.5 MG TAB PO (17:07)
--- NOTE | 2022-09-09 17:55 | DI.VRAD_ITS ---
PROCEDURE INFORMATION: Exam: XR Chest Exam date and time: 09/09/2022 5:39 PM Age: 77 years old Clinical indication: Patient HX: Chest pain HX of pulm fibrosis TECHNIQUE: Imaging protocol: Radiologic exam of the chest. Views: 2 views. COMPARISON: CT CHEST HIGH RESOLUTION 07/29/2021 8:27 AM FINDINGS: Lungs: Moderate to severe bilateral hyperinflation suggesting underlying emphysema/COPD. No acute infiltrates or edema. Pleural spaces: No pleural effusion. Heart/Mediastinum: Normal heart size. Bones/joints: Thoracic spine degenerative disease. IMPRESSION: 1. Emphysema/COPD. 2. No acute infiltrates or edema. No pleural effusions. Dictated and Authenticated by: Rashad Kingsley MD. Ordering:AZEEM Chambers MD
[2022-09-09] MEDS: Lidocaine 5% Patch 1 PATCH TP (18:10)
[2022-09-09] MEDS: LORazepam 0.5 MG TAB 1 MG PO (18:11)
[2022-09-09 18:14] VITALS: BP 137/87; PULSE 84; RESP 16; O2SAT 98
[2022-09-11 12:41] LABS: Lab Add On Test DONE
[2022-09-11 13:03] LABS: TSH (W/Ref FT4) 2.62 uIU/mL (0.36-3.74)
== END 2022-09-09 18:20 | disposition home or self-care (01) ==
PROVIDERS: Emergency Provider Registered Nurse Emergency; PCP Family Medicine
DX: F41.9 Anxiety disorder, unspecified (principal); M54.50 Low back pain, unspecified; R07.89 Other chest pain
CPT/HCPCS: 80053; 93005; 99283; 71046; 83735; 84443; 84484; 85025; 93010; 99285

== ENCOUNTER 2022-09-19 03:41 | Outpatient (CLI) | payer OTHER, SELFPAY ==
[2022-09-19 14:26] LABS: ALT 21 U/L (14-59); AST 17 U/L (15-37); Albumin 3.5 g/dL (3.4-5.0); Alkaline Phosphatase 93 U/L (46-116); BUN 16 mg/dL (7-18); Bilirubin, Total 0.3 mg/dL (0.2-1.0); CREATININE 0.7 mg/dL (0.55-1.02); Calcium 8.8 mg/dL (8.5-10.1); Chloride 100 mmol/L (98-107); Estimated GFR 89.58 (mL/min/1.73m2); Glucose 111 mg/dL (74-106); Potassium 3.8 mmol/L (3.5-5.1); Sodium 136 mmol/L (136-145); Total Protein 6.3 g/dL (6.4-8.2)
== END 2022-09-19 03:42 | disposition home or self-care (01) ==
LOC: LBO 03:41
PROVIDERS: PCP Family Medicine; Visit Provider Student in an Organized Health Care Education/Training Program
DX: J84.112 Idiopathic pulmonary fibrosis (principal); K21.9 Gastro-esophageal reflux disease without esophagitis; A31.9 Mycobacterial infection, unspecified; E87.1 Hypo-osmolality and hyponatremia; F41.8 Other specified anxiety disorders; R53.83 Other fatigue
CPT/HCPCS: 36415; 80053; 83520

== ENCOUNTER 2022-10-09 10:12 | Outpatient (CLI) | payer OTHER, SELFPAY ==
--- NOTE | 2022-10-10 15:35 | W.PFT ---
Date of service: 10/09/22 Time of Service: 21:45 Pulmonary Function Test Result Requesting Provider Anisa Reid Indications: Psychophysiologic insomnia Note: Overnight Oximetry Amount of time analyzed: 8 hours, 51 minutes Number of minutes under 88%: 1.1 min PATT: 14.8 Appearance of oxygen saturation pattern: Sharp increases and decreased, which could be consistent with obstructive sleep apnea Recommendation: Consider PSG if clinically applicable Carol Myrick MD Pulmonary & Critical Care Medicine Clinical Correlation therefore is recommended.
== END 2022-10-09 10:13 | disposition home or self-care (01) ==
PROVIDERS: PCP Family Medicine; Visit Provider Nurse Practitioner
DX: F51.04 Psychophysiologic insomnia (principal)
CPT/HCPCS: 94762

== ENCOUNTER 2022-11-21 09:16 | Emergency (ER) | payer OTHER, SELFPAY ==
--- NOTE | 2022-11-21 09:15 | DI.RAD_ITS ---
Exam(s) XR LUMBAR SPINE COMPLETE EXAM: XR LUMBAR SPINE COMPLETE CLINICAL HISTORY: Back Pain. TECHNIQUE: 2D digital imaging was performed. COMPARISON: CR XR DEXA BONE DENSITY W/WO HALLE from 07/11/2022 FINDINGS: Five views: No evidence of acute fracture, listhesis, nor pars interarticularis defects. There is multilevel chronic disc space narrowing at L1-2, L4-5, and L5-S1 levels. Anterior osseous l ipping these levels noted. There is also facet arthropathy at the lower 2 levels-mild. No osseous l esions at L4-5 level there is some asymmetric disc space narrowing, more so on the right side. There is no scoliosis. Sacroiliac joints appear unremarkable. Calcification noted in the abdominal aorta . IMPRESSION: Multilevel disc space narrowing at L1-2, L4-5 and L5-S1 levels. Milder disc space narrowing at L3-4 level. No fractures. Multilevel facet arthropathy DATA REPOSITORY: RADIATION DOSE DELIVERED:
--- NOTE | 2022-11-21 09:15 | DI.RAD_ITS ---
Exam(s) XR HIP LT COMPLETE AP PELVIS EXAM: XR HIP LT COMPLETE AP PELVIS CLINICAL HISTORY: Hip Pain. TECHNIQUE: 2D digital imaging was performed. COMPARISON: None FINDINGS: 3 views No evidence of pelvic nor hip fracture. Additional views of the left hip reveal no fracture. Disc s pace narrowing at L4-5 level noted. Sacroiliac joints appear unremarkable. There is mild narrowing of both hip joint spaces. No osseous lesions. IMPRESSION: No acute pelvic nor hip fractures evident. DATA REPOSITORY: RADIATION DOSE DELIVERED:
[2022-11-21 09:25] VITALS: BP 129/82; PULSE 75; RESP 18; TEMP 37.1; O2SAT 98
--- NOTE | 2022-11-21 09:30 | ED.GENADUL_ITS ---
Discharge Plan Disposition Patient Disposition: Home Discharge Details Clinical Impression: Degenerative joint disease (DJD) of lumbar spine Primary Care Provider: Carrie Mejias ED Provider: Trish Hernandez Home Meds and New Rx's Prescriptions: Continued garlic [garlic oil] 1,000 mg capsule 2,000 mg PO DAILY albuterol sulfate [ProAir HFA] 90 mcg/actuation HFA aerosol inhaler 2 puff Inhalation Q4H PRN Qty: 1 12RF metoclopramide HCl 10 mg tablet 10 mg PO BID PRN (Reason: nausea and vomiting) Qty: 180 4RF Hold Instructions: Adverse Reaction melatonin 10 mg capsule 10 mg PO HS PRN (Reason: sleep) Qty: 90 8RF mirtazapine 7.5 mg tablet 7.5 mg PO QHS Qty: 90 4RF PEAK FLOW METER Rx Instructions: USE WHEN YOUR BREATHING WORSENS fluconazole 150 mg tablet 150 mg PO QWEEK PRN (Reason: yeast) Qty: 12 4RF oxybutynin chloride 10 mg tablet extended release 24hr 10 mg PO DAILY Qty: 90 12RF estradiol [Yuvafem] 10 mcg tablet 10 mcg VG .3 times weekly Qty: 36 4RF Dulera 100-5 mcg/actuation HFA aerosol inhaler 2 puff inhalation BID Qty: 13 12RF acetaminophen [Acetaminophen Extra Strength] 500 mg tablet 1,000 mg PO TID PRN PRN (Reason: pain) Qty: 100 6RF omeprazole magnesium 20 mg tablet,delayed release (DR/EC) 20 mg PO BID Qty: 90 4RF methylphenidate HCl 5 mg tablet 5 mg PO BID MDD 10 Qty: 60 0RF psyllium Packet 1 packet PO BID cyanocobalamin (vitamin B-12) 5,000 mcg Capsule 5,000 mcg PO DAILY Discharge Instructions Instructions: Back Pain (ED), Degenerative Disc Disease (ED) Additional Instructions: X-rays show some disc space narrowing from L1-S1 which is in the area that you are having pain. This showing some osteoarthritis of the lumbar spine. Please take Tylenol with food every 4-6 hours as needed for pain and swelling. Follow up with primary care provider in 3-5 days. Return to ED sooner if any worsening or concerns. Increase oral fluids. Referrals: Carrie Mejias MD, [place] [Primary Care Provider] - 3 days Medical Decision Making 77-year-old female past medical history of GERD, depression, balance problems, frequent falls insomnia high cholesterol presents to the ER with chief complaint of left lower back pain and left hip pain which has been ongoing for the last few days. She denies any falls or trauma. She denies any dysuria or problems urinating. She does report that she was sick all weekend with fever and chills. She was seen by her PCP yesterday was tested negative for COVID. She denies any other associated symptoms. She did not take any pain medication this morning. X-ray L-spine, hip ordered, lidocaine patch and Tylenol. Patient discharged with home care instructed on alternating ice and heat Tylenol ibuprofen. This text was generated using [employer] dictation system, please disregard any oddities of phrase or misspellings. Imaging Data Radiologic Study: Imaging: X-Ray Radiologist's impression: FINDINGS: Five views: No evidence of acute fracture, listhesis, nor pars interarticularis defects. There is multilevel chronic disc space narrowing at L1-2, L4-5, and L5-S1 levels. Anterior osseous lipping these levels noted. There is also facet arthropathy at the lower 2 levels-mild. No osseous lesions at L4-5 level there is some asymmetric disc space narrowing, more so on the right side. There is no scoliosis. Sacroiliac joints appear unremarkable. Calcification noted in the abdominal aorta. IMPRESSION: Multilevel disc space narrowing at L1-2, L4-5 and L5-S1 levels. Milder disc space narrowing at L3-4 level. No fractures. Multilevel facet arthropathy Lab Data Lab results reviewed: Yes I reviewed the patient's lab results. Labs: Laboratory Tests Range/Units 11/21/22 09:15 Urine Color (Yellow) Yellow Urine Clarity (Clear) Sl Cloudy Urine pH (5-8) 7.0 Ur Specific Keiser (1.005-1.025) 1.020 Urine Protein (Negative) mg/dL Negative Urine Ketones (Negative) mg/dL Negative Urine Blood (Negative) Negative Urine Nitrite (Negative) Negative Urine Bilirubin (Negative) Negative Urine Urobilinogen (Up to 0.2) mg/dL 1.0 H Ur Leukocyte Esterase (Negative) Negative Urine Glucose (Negative) mg/dL Negative HPI General Mode of arrival: ambulatory . Date/Time Provider Initiated Documentation: 11/21/22 09:17 . Limitations to Documentation: no limitations . Information obtained by: patient, RN notes reviewed and old records reviewed . HPI Narrative: 77-year-old female past medical history of GERD, depression, balance problems, frequent falls insomnia high cholesterol presents to the ER with chief complaint of left lower back pain and left hip pain which has been ongoing for the last few days. She denies any falls or trauma. She denies any dysuria or problems urinating. She does report that she was sick all weekend with fever and chills. She was seen by her PCP yesterday was tested negative for COVID. She denies any other associated symptoms. She did not take any pain medication this morning. Related Data Home Medications Medication Instructions Recorded Confirmed Peak Flow Meter 10/29/12 11/20/22 cyanocobalamin (vitamin B-12) 5,000 mcg PO DAILY 03/23/21 11/20/22 5,000 mcg capsule psyllium 1 packet PO BID 03/23/21 11/20/22 fluconazole 150 mg tablet 150 mg PO QWEEK PRN yeast #12 tabs 05/02/22 11/20/22 oxybutynin chloride 10 mg 10 mg PO DAILY #90 tab-caps 05/02/22 11/20/22 tablet,extended release 24 hr estradiol 10 mcg vaginal tablet 10 mcg vaginal .3 times weekly #36 06/02/22 11/20/22 (Yuvafem) tabs albuterol sulfate 90 mcg/actuation 2 puff inhalation Q4H PRN ##1 06/05/22 11/20/22 aerosol inhaler (ProAir HFA) garlic 1,000 mg capsule (garlic 2,000 mg PO DAILY 06/05/22 11/20/22 oil) metoclopramide HCl 10 mg tablet 10 mg PO BID PRN nausea and 06/05/22 11/20/22 vomiting #180 tabs mometasone-formoterol HFA 100 2 puff inhalation BID #13 grams 07/31/22 11/20/22 mcg-5 mcg/actuation aerosol inhaler (Dulera) acetaminophen 500 mg tablet 1,000 mg PO TID PRN PRN pain #100 08/25/22 11/20/22 (Acetaminophen Extra Strength) tabs melatonin 10 mg capsule 10 mg PO HS PRN sleep #90 caps 09/22/22 11/20/22 omeprazole magnesium 20 mg 20 mg PO BID #90 tabs 09/22/22 11/20/22 tablet,delayed release mirtazapine 7.5 mg tablet 7.5 mg PO QHS #90 tabs 10/30/22 11/20/22 methylphenidate HCl 5 mg tablet 5 mg PO BID #60 tabs 11/14/22 11/20/22 Previous Rx's Medication Instructions Recorded fluconazole 150 mg tablet 150 mg PO QWEEK PRN yeast #12 tabs 05/02/22 oxybutynin chloride 10 mg 10 mg PO DAILY #90 tab-caps 05/02/22 tablet,extended release 24 hr estradiol 10 mcg vaginal tablet 10 mcg vaginal .3 times weekly #36 06/02/22 (Yuvafem) tabs albuterol sulfate 90 mcg/actuation 2 puff inhalation Q4H PRN ##1 06/05/22 aerosol inhaler (ProAir HFA) metoclopramide HCl 10 mg tablet 10 mg PO BID PRN nausea and 06/05/22 vomiting #180 tabs mometasone-formoterol HFA 100 2 puff inhalation BID #13 grams 07/31/22 mcg-5 mcg/actuation aerosol inhaler (Dulera) acetaminophen 500 mg tablet 1,000 mg PO TID PRN PRN pain #100 08/25/22 (Acetaminophen Extra Strength) tabs melatonin 10 mg capsule 10 mg PO HS PRN sleep #90 caps 09/22/22 omeprazole magnesium 20 mg 20 mg PO BID #90 tabs 09/22/22 tablet,delayed release mirtazapine 7.5 mg tablet 7.5 mg PO QHS #90 tabs 10/30/22 methylphenidate HCl 5 mg tablet 5 mg PO BID #60 tabs 11/14/22 Allergies Allergy/AdvReac Type Severity Reaction Status Date / Time clavulanic acid Allergy Severe Verified 09/22/22 11:29 [From Augmentin] tuberculin, purified protein Allergy Unknown Verified 11/20/22 12:58 deriva bupropion AdvReac AGITATION Verified 09/22/22 11:29 codeine AdvReac NAUSEA/VOMI Verified 09/22/22 11:29 TING Esbriet Allergy Intermediate Hives Uncoded 09/22/22 11:29 General Stated Complaint: Nk/Back Pain MEI: 3 Review of Systems All systems reviewed & are unremarkable except as noted in HPI and below Musculoskeletal Musculoskeletal: Reports as per HPI and Reports back pain PFSH All Active Problems (Updated 11/21/22 @ 11:05 by Trish Hernandez NP) Degenerative joint disease (DJD) of lumbar spine (Acute) Attention deficit (Acute) Shortness of breath (Acute) Anorexia (Acute) Weight loss (Acute 03/12/18) Hyponatremia (Acute) Medication reaction (Acute) IPF (idiopathic pulmonary fibrosis) (Acute) GERD (gastroesophageal reflux disease) (Chronic) Mycobacterial infection, atypical (Acute) Balance problems (Acute) Urinary frequency (Chronic 08/17/17) Fatigue (Chronic 07/12/02) Multiple extensive work ups without etiology Depressive disorder (Chronic) Constipation (Chronic 08/10/14) Bronchiolitis (Chronic) 02/11/16[facility] 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 AVOID AZITHROMAX - SEE NOTE VJ 06/30/16 SOB Atrophic vaginitis (Chronic) Medical History Abdominal pain Abnormal chest CT Abnormal laboratory test decreased cortisol w/retesting normal Allergic rhinitis Benign neoplasm of skin of perineum benign lesion-resolved Bruising (02/22/15) Complete tear of right rotator cuff (12/12/17) Depressive disorder Ear problem (12/03/07) PERFERATED EARDRUM Falls frequently Hypercholesterolemia Insomnia Insomnia Insomnia Interstitial lung disease Low back pain Low back pain (01/02/17) Malignant neoplasm of cervix uteri hyst;single ovary remains 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) Primary malignant neoplasm of cervix Seborrheic keratoses (01/11/16) LEFT CHEEK, SCAPULA Tear of left supraspinatus tendon (09/04/17) mri 09/03/17 Surgical History Abdominal hysterectomy single ovary remains Appendectomy Colonoscopy - MAC (~2006) Colonoscopy - MAC (10/05/17) H/O bilateral salpingo-oophorectomy HERNIA REPAIR Ligation of fallopian tube BSO Open Carpal Tunnel release S/P abdominal hysterectomy one ovary remains S/P appendectomy S/P carpal tunnel release S/P hernia repair Status post abdominal hysterectomy Status post appendectomy Status post carpal tunnel release Status post hernia repair Family History Mother , 2 Emphysema of lung Stroke COPD (chronic obstructive pulmonary disease) Asthma Father , 85 Lung cancer Brother , 85 COPD (chronic obstructive pulmonary disease) Lung cancer Maternal Grandfather No problems noted. Paternal Grandfather No problems noted. Maternal Grandmother No problems noted. Paternal Grandmother No problems noted. Brother , 70 Diabetes Colon cancer Sister , 80 Diabetes Lung cancer Sister , 81 Cancer Social History Smoking/Tobacco Use Status: Never Second Hand Exposure: Yes Smoking risk assessment performed?: Yes Alcohol Intake: former Drug use: Never Substance use type: does not use Household members: spouse Housing: house Do you need help understanding health information?: Often Pets and animals: Yes Pets and animals: cat(s) Sexually active: Yes Do you think of yourself as: straight/heterosexual What is your relationship status?: How often do you talk on the phone with friends or family?: twice per week How often do you get together with friends or relatives?: once per week How often do you attend scientology or oriental orthodox services?: decline to answer Do you belong to any clubs or organized social groups?: no Panel score (0-1 are the most socially isolated patients): 2 What type of physical activity do you participate in: walking Duration: 30-45 minutes/day Frequency: 3-4 times per week Annelise/Rastafarian: No preference Special annelise needs: No Seatbelt use: always 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 Appears stated age. Normal body habitus. Head: Normocephalic, no trauma. Eyes: Pupils PERRL, Red reflex noted, EOM's intact. Eyelids symmetrical without lesions, discharge, or swelling. Chest: RRR, Normal S1, S2, distal pulses intact. Resp: Lungs clear to auscultation bilaterally, no wheezes, rales, or rhonchi. Abdomen: Soft, non-distended, Normoactive bowel sounds all 4 quads. Musculoskeletal: Normal gait, 5/5 strength to all four extremities. No midline L-spine tenderness with palpation no crepitus no step-off, she does have left paraspinous tenderness. He denies any radiation of pain. Skin: No suspicious rashes or lesions. Capillary refill less than 2 sec. Neurologic: Cranial nerves II-XII intact. Alert and oriented x 3. Motor: No deficits noted. Sensory: Intact bilaterally all 4 extremities. Reflexes: DTR's intact bilaterally.. Hematologic/Lymphatic: No ecchymosis, no lymphadenopathy. Course Vital Signs Vital signs: Vital Signs Temperature 37.1 C 11/21/22 09:25 Pulse 75 11/21/22 09:25 Respiratory Rate 18 11/21/22 09:25 Blood Pressure 129/82 11/21/22 09:25 Pulse Oximetry 98 11/21/22 09:25 Temperature 37.1 C 11/21/22 09:25 Temperature Source Oral 11/21/22 09:25 Pulse 75 11/21/22 09:25 Respiratory Rate 18 11/21/22 09:25 Respiratory Effort Normal, Non-Labored 11/21/22 09:29 Blood Pressure 129/82 11/21/22 09:25 Pulse Oximetry 98 11/21/22 09:25 Oxygen Delivery Method Room Air 11/21/22 09:25 Oxygen Flow Rate 0 11/21/22 09:25
[2022-11-21] MEDS: Acetaminophen 325 MG TAB 650 MG PO (09:41)
[2022-11-21] MEDS: Lidocaine 5% Patch 1 PATCH TP (09:41)
[2022-11-21 09:49] LABS: Bilirubin Negative (Negative); Blood Negative (Negative); Clarity Sl Cloudy (Clear); Glucose Negative (Negative); Ketones Negative (Negative); Leukocyte Esterase Negative (Negative); Nitrite Negative (Negative)
== END 2022-11-21 11:16 | disposition home or self-care (01) ==
PROVIDERS: Emergency Provider Registered Nurse Emergency; PCP Family Medicine
DX: M47.816 Spondylosis without myelopathy or radiculopathy, lumbar region (principal)
CPT/HCPCS: 99284; 72110; 73502; 81003

== ENCOUNTER 2022-11-30 09:58 | Emergency (ER) | payer OTHER, SELFPAY ==
[2022-11-30 10:04] VITALS: BP 162/89; PULSE 68; RESP 18; TEMP 37; O2SAT 100
[2022-11-30 10:54] LABS: Abs Immature Grans 0.03 10^3/uL (0.0-0.06); Absolute Basophil Count 0.06 10^3/uL (0.0-0.2); Absolute Eosinophil Count 0.27 10^3/uL (0.0-0.7); Absolute Lymphocyte Count 1.82 10^3/uL (1.2-3.4); Absolute Monocyte Count 0.59 10^3/uL (0.1-0.8); Absolute Neutrophil Count 3.91 10^3/uL (1.2-6.7); Basophils % 0.9; HCT 42.5 % (36.0-46.0); HGB 13.3 g/dL (11.2-15.7); Immature Grans % 0.4; Lymphocytes % 27.2; MCH 26.5 pg (27.0-33.0); MCHC 31.3 % (32.0-36.0); MCV 85 fL (80-95); MPV 10.1 fL (8.0-11.0); Monocytes % 8.8; Neutrophils % 58.7; Platelet Count 345 10^3/uL (130-400); RBC 5.01 10^6/uL (3.93-5.22); RDW 13.8 % (11.7-14.6); RDW-SD 43.1 fL; WBC 6.68 10^3/uL (4.4-10.8)
--- NOTE | 2022-11-30 10:54 | W.ED.GENAD ---
Discharge Plan Disposition Patient Disposition: Home Condition: Stable Discharge Details Clinical Impression: Depression Primary Care Provider: Carrie Mejias ED Provider: Finesse Otoole Home Meds and New Rx's Prescriptions: Continued garlic [garlic oil] 1,000 mg capsule 2,000 mg PO DAILY albuterol sulfate [ProAir HFA] 90 mcg/actuation HFA aerosol inhaler 2 puff Inhalation Q4H PRN Qty: 1 12RF PEAK FLOW METER Rx Instructions: USE WHEN YOUR BREATHING WORSENS fluconazole 150 mg tablet 150 mg PO QWEEK PRN (Reason: yeast) Qty: 12 4RF estradiol [Yuvafem] 10 mcg tablet 10 mcg VG .3 times weekly Qty: 36 4RF Dulera 100-5 mcg/actuation HFA aerosol inhaler 2 puff inhalation BID Qty: 13 12RF acetaminophen [Acetaminophen Extra Strength] 500 mg tablet 1,000 mg PO TID PRN PRN (Reason: pain) Qty: 100 6RF omeprazole magnesium 20 mg tablet,delayed release (DR/EC) 20 mg PO BID Qty: 90 4RF psyllium Packet 1 packet PO BID cyanocobalamin (vitamin B-12) 5,000 mcg Capsule 5,000 mcg PO DAILY Discharge Instructions Instructions: Depression (ED) Additional Instructions: Please contact your primary care physician to arrange follow-up. Return to the ER immediately for any worsening or new concerning symptoms. Referrals: Carrie Mejias [place], [place] [Primary Care Provider] - Medical Decision Making 11:11 -- 77 yo female with history of anxiety and depression, here with worsening depression, sent by PCP for depression. Patient is not suicidal at this time. Plan to obtain CT head and diagnostic labs. 1315 -- Labs reviewed and nondiagnostic other than low iron. I discussed CT head with Dr. Khan, she notes no concerning findings. had I called and spoke with Dr. Mejias, discussed ED course including diagnostics, she will see the patient in follow-up and will be arranging for treatment at [facility]. Patient and her feel comfortable with discharge given this plan. Lab Data Lab results reviewed: Yes I reviewed the patient's lab results. Labs: Laboratory Tests Range/Units 11/30/22 11/30/22 11/30/22 10:35 10:35 10:35 WBC (4.4-10.8) 10^3/uL RBC (3.93-5.22) 10^6/uL Hgb (11.2-15.7) g/dL Hct (36.0-46.0) % MCV (80-95) fL MCH (27.0-33.0) pg MCHC (32.0-36.0) % RDW (11.7-14.6) % Plt Count (130-400) 10^3/uL MPV (8.0-11.0) fL Immature Gran % Neutrophils % Lymphocytes % Monocytes % Eosinophils % Basophils % Nucleated RBC % (0.0-0.3) % Absolute Neutrophils (1.2-6.7) 10^3/uL Absolute Lymphocytes (1.2-3.4) 10^3/uL Absolute Monocytes (0.1-0.8) 10^3/uL Absolute Eosinophils (0.0-0.7) 10^3/uL Absolute Basophils (0.0-0.2) 10^3/uL Sodium (136-145) mmol/L 138 Potassium (3.5-5.1) mmol/L 4.0 Chloride (98-107) mmol/L 102 Carbon Dioxide (21.0-32.0) mmol/L 30.4 Anion Gap (3-11) mmol/L 5.6 BUN (7-18) mg/dL 14 Creatinine (0.55-1.02) mg/dL 0.8 Est GFR (CKD-EPI 2020) (mL/min/1.73m2) 76.31 Glucose (74-106) mg/dL 94 Calcium (8.5-10.1) mg/dL 9.0 Iron (50-170) ug/dL 41 L Total Bilirubin (0.2-1.0) mg/dL 0.3 AST (15-37) U/L 21 ALT (14-59) U/L 24 Alkaline Phosphatase (46-116) U/L 124 H Total Protein (6.4-8.2) g/dL 7.6 Albumin (3.4-5.0) g/dL 3.4 Vitamin B12 (193-986) pg/mL 1638 H 25-OH Vitamin D Total (30-100) ng/mL 36.8 TSH (0.36-3.74) uIU/mL 2.53 Urine Color (Yellow) Urine Clarity (Clear) Urine pH (5-8) Ur Specific Cross (1.005-1.025) Urine Protein (Negative) mg/dL Urine Ketones (Negative) mg/dL Urine Blood (Negative) Urine Nitrite (Negative) Urine Bilirubin (Negative) Urine Urobilinogen (Up to 0.2) mg/dL Ur Leukocyte Esterase (Negative) Urine Glucose (Negative) mg/dL COVID-19 Source SARS-CoV-2 (PCR) (Negative) Range/Units 11/30/22 11/30/22 11/30/22 10:35 10:54 11:00 WBC (4.4-10.8) 10^3/uL 6.68 RBC (3.93-5.22) 10^6/uL 5.01 Hgb (11.2-15.7) g/dL 13.3 Hct (36.0-46.0) % 42.5 MCV (80-95) fL 85 MCH (27.0-33.0) pg 26.5 L MCHC (32.0-36.0) % 31.3 L RDW (11.7-14.6) % 13.8 Plt Count (130-400) 10^3/uL 345 MPV (8.0-11.0) fL 10.1 Immature Gran % 0.4 Neutrophils % 58.7 Lymphocytes % 27.2 Monocytes % 8.8 Eosinophils % 4.0 Basophils % 0.9 Nucleated RBC % (0.0-0.3) % 0.0 Absolute Neutrophils (1.2-6.7) 10^3/uL 3.91 Absolute Lymphocytes (1.2-3.4) 10^3/uL 1.82 Absolute Monocytes (0.1-0.8) 10^3/uL 0.59 Absolute Eosinophils (0.0-0.7) 10^3/uL 0.27 Absolute Basophils (0.0-0.2) 10^3/uL 0.06 Sodium (136-145) mmol/L Potassium (3.5-5.1) mmol/L Chloride (98-107) mmol/L Carbon Dioxide (21.0-32.0) mmol/L Anion Gap (3-11) mmol/L BUN (7-18) mg/dL Creatinine (0.55-1.02) mg/dL Est GFR (CKD-EPI 2020) (mL/min/1.73m2) Glucose (74-106) mg/dL Calcium (8.5-10.1) mg/dL Iron (50-170) ug/dL Total Bilirubin (0.2-1.0) mg/dL AST (15-37) U/L ALT (14-59) U/L Alkaline Phosphatase (46-116) U/L Total Protein (6.4-8.2) g/dL Albumin (3.4-5.0) g/dL Vitamin B12 (193-986) pg/mL 25-OH Vitamin D Total (30-100) ng/mL TSH (0.36-3.74) uIU/mL Urine Color (Yellow) Yellow Urine Clarity (Clear) Clear Urine pH (5-8) 6.5 Ur Specific Cross (1.005-1.025) 1.020 Urine Protein (Negative) mg/dL Negative Urine Ketones (Negative) mg/dL Negative Urine Blood (Negative) Negative Urine Nitrite (Negative) Negative Urine Bilirubin (Negative) Negative Urine Urobilinogen (Up to 0.2) mg/dL 0.2 Ur Leukocyte Esterase (Negative) Negative Urine Glucose (Negative) mg/dL Negative COVID-19 Source Nasal/Nares SARS-CoV-2 (PCR) (Negative) Negative HPI General Mode of arrival: ambulatory. Date/Time Provider Initiated Documentation: 11/30/22 10:13. Limitations to Documentation: no limitations. Information obtained by: patient and RN/MD. HPI Narrative: 77-year-old female with history of depression and anxiety, sent by PCP to the ED for evaluation of depression. Patient notes feeling down over the past weeks. Symptoms are severe. No SI. Dr. Mejias has established plan for ttreatment at [facility]. She requests diagnostic workup for recent worsening depression and anxiety to include CT head and diagnostic labs. Patient is not currently suicidal. Related Data Home Medications Medication Instructions Recorded Confirmed Peak Flow Meter 10/29/12 11/30/22 cyanocobalamin (vitamin B-12) 5,000 mcg PO DAILY 03/23/21 11/30/22 5,000 mcg capsule psyllium 1 packet PO BID 03/23/21 11/30/22 fluconazole 150 mg tablet 150 mg PO QWEEK PRN yeast #12 tabs 09/20/22 04/20/23 estradiol 10 mcg vaginal tablet 10 mcg vaginal .3 times weekly #36 06/02/22 11/30/22 (Yuvafem) tabs albuterol sulfate 90 mcg/actuation 2 puff inhalation Q4H PRN ##1 06/05/22 11/30/22 aerosol inhaler (ProAir HFA) garlic 1,000 mg capsule (garlic 2,000 mg PO DAILY 06/05/22 11/30/22 oil) mometasone-formoterol HFA 100 2 puff inhalation BID #13 grams 07/31/22 11/30/22 mcg-5 mcg/actuation aerosol inhaler (Dulera) acetaminophen 500 mg tablet 1,000 mg PO TID PRN PRN pain #100 08/25/22 11/30/22 (Acetaminophen Extra Strength) tabs omeprazole magnesium 20 mg 20 mg PO BID #90 tabs 09/22/22 11/30/22 tablet,delayed release Previous Rx's Medication Instructions Recorded fluconazole 150 mg tablet 150 mg PO QWEEK PRN yeast #12 tabs 05/02/22 estradiol 10 mcg vaginal tablet 10 mcg vaginal .3 times weekly #36 06/02/22 (Yuvafem) tabs albuterol sulfate 90 mcg/actuation 2 puff inhalation Q4H PRN ##1 06/05/22 aerosol inhaler (ProAir HFA) mometasone-formoterol HFA 100 2 puff inhalation BID #13 grams 07/31/22 mcg-5 mcg/actuation aerosol inhaler (Dulera) acetaminophen 500 mg tablet 1,000 mg PO TID PRN PRN pain #100 08/25/22 (Acetaminophen Extra Strength) tabs omeprazole magnesium 20 mg 20 mg PO BID #90 tabs 09/22/22 tablet,delayed release Allergies Allergy/AdvReac Type Severity Reaction Status Date / Time clavulanic acid Allergy Severe Verified 11/30/22 08:46 [From Augmentin] tuberculin, purified protein Allergy Unknown Verified 11/30/22 08:46 deriva bupropion AdvReac AGITATION Verified 11/30/22 08:46 codeine AdvReac NAUSEA/VOMI Verified 11/30/22 08:46 TING Esbriet Allergy Intermediate Hives Uncoded 11/30/22 08:46 General Stated Complaint: GenMedical MEI: 3 Review of Systems All systems reviewed & are unremarkable except as noted in HPI and below Constitutional Constitutional: Denies fever(s) Respiratory Comments: cough last night Psychiatric Psychiatric: Reports as per HPI PFSH All Active Problems (Updated 11/30/22 @ 13:16 by Finesse Otoole MD) Depression (Chronic) Mental status alteration (Acute) Degenerative joint disease (DJD) of lumbar spine (Acute) Attention deficit (Acute) Shortness of breath (Acute) Anorexia (Acute) Weight loss (Acute 03/12/18) Hyponatremia (Acute) Medication reaction (Acute) IPF (idiopathic pulmonary fibrosis) (Acute) GERD (gastroesophageal reflux disease) (Chronic) Mycobacterial infection, atypical (Acute) Balance problems (Acute) Urinary frequency (Chronic 08/17/17) Fatigue (Chronic 07/12/02) Multiple extensive work ups without etiology Depressive disorder (Chronic) Constipation (Chronic 08/10/14) Bronchiolitis (Chronic) 02/11/16-[facility] [place] 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 AVOID AZITHROMAX - SEE NOTE VJ 06/30/16 SOB Atrophic vaginitis (Chronic) Medical History Abdominal pain Abnormal chest CT Abnormal laboratory test decreased cortisol w/retesting normal Allergic rhinitis Benign neoplasm of skin of perineum benign lesion-resolved Bruising (02/22/15) Complete tear of right rotator cuff (12/12/17) Depressive disorder Ear problem (12/03/07) PERFERATED EARDRUM Falls frequently Hypercholesterolemia Insomnia Insomnia Insomnia Interstitial lung disease Low back pain Low back pain (01/02/17) Malignant neoplasm of cervix uteri hyst;single ovary remains 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) Primary malignant neoplasm of cervix Seborrheic keratoses (01/11/16) LEFT CHEEK, SCAPULA Tear of left supraspinatus tendon (09/04/17) mri 09/03/17 Surgical History Abdominal hysterectomy single ovary remains Appendectomy Colonoscopy - MAC (~2006) Colonoscopy - MAC (10/05/17) H/O bilateral salpingo-oophorectomy HERNIA REPAIR Ligation of fallopian tube BSO Open Carpal Tunnel release S/P abdominal hysterectomy one ovary remains S/P appendectomy S/P carpal tunnel release S/P hernia repair Status post abdominal hysterectomy Status post appendectomy Status post carpal tunnel release Status post hernia repair Family History Mother , 2 Emphysema of lung Stroke COPD (chronic obstructive pulmonary disease) Asthma Father , 85 Lung cancer Brother , 85 COPD (chronic obstructive pulmonary disease) Lung cancer Maternal Grandfather No problems noted. Paternal Grandfather No problems noted. Maternal Grandmother No problems noted. Paternal Grandmother No problems noted. Brother , 70 Diabetes Colon cancer Sister , 80 Diabetes Lung cancer Sister , 81 Cancer Social History Smoking/Tobacco Use Status: Never Second Hand Exposure: Yes Smoking risk assessment performed?: Yes Alcohol Intake: former Drug use: Never Substance use type: does not use Household members: spouse Housing: house Do you need help understanding health information?: Often Pets and animals: Yes Pets and animals: cat(s) Sexually active: Yes Do you think of yourself as: straight/heterosexual What is your relationship status?: How often do you talk on the phone with friends or family?: twice per week How often do you get together with friends or relatives?: once per week How often do you attend orthodox or worship services?: decline to answer Do you belong to any clubs or organized social groups?: no Panel score (0-1 are the most socially isolated patients): 2 What type of physical activity do you participate in: walking Duration: 30-45 minutes/day Frequency: 3-4 times per week Annelise/Alevism: No preference Special annelise needs: No Seatbelt use: always Drive intox or ride w/intox rickshaw driver: No Do you feel safe at home: Yes Do you feel safe in your relationship?: Yes Exam Const General: cooperative and no acute distress HENMT Head: normocephalic and atraumatic Mouth: moist mucous membranes Eyes Conjunctivae: normal conjunctivae Sclera: normal sclerae Neck Neck: trachea midline and supple Resp Auscultation: clear to auscultation bilaterally, no rales, no rhonchi and no wheezes Cardio Rate: regular rate and not tachycardic Rhythm: regular rhythm GI Palpation: soft, not firm, no guarding, no masses, not rigid and nontender Skin General skin exam: no rashes or lesions noted Neuro General: patient alert, patient awake and tone normal Extrem General: no edema Psych Appearance: grossly normal Mental Status: mental status grossly normal and other (depressed) Mood: other (depressed) Affect: blunted Attitude: cooperative Course Vital Signs Vital signs: Vital Signs Temperature 37.0 C 11/30/22 10:04 Pulse 68 11/30/22 10:04 Respiratory Rate 18 11/30/22 10:04 Blood Pressure 162/89 H 11/30/22 10:04 Pulse Oximetry 100 11/30/22 10:04 Temperature 37.0 C 11/30/22 10:04 Pulse 68 11/30/22 10:04 Respiratory Rate 18 11/30/22 10:04 Respiratory Effort Normal, Non-Labored 11/30/22 10:08 Blood Pressure 162/89 H 11/30/22 10:04 Pulse Oximetry 100 11/30/22 10:04 Oxygen Delivery Method Room Air 11/30/22 10:04 Oxygen Flow Rate 0 11/30/22 10:04
[2022-11-30 10:57] LABS: Iron 41 ug/dL (50-170)
[2022-11-30 11:06] LABS: Source Nasal/Nares
[2022-11-30 11:10] LABS: Bilirubin Negative (Negative); Blood Negative (Negative); Clarity Clear (Clear); Glucose Negative (Negative); Ketones Negative (Negative); Leukocyte Esterase Negative (Negative); Nitrite Negative (Negative); Urobilinogen 0.2 mg/dL (Up to 0.2); pH 6.5 (5-8)
[2022-11-30 11:22] VITALS: RESP 18
[2022-11-30 11:24] LABS: ALT 24 U/L (14-59); AST 21 U/L (15-37); Albumin 3.4 g/dL (3.4-5.0); Alkaline Phosphatase 124 U/L (46-116); Anion Gap 5.6 mmol/L (3-11); BUN 14 mg/dL (7-18); Bilirubin, Total 0.3 mg/dL (0.2-1.0); CO2 30.4 mmol/L (21.0-32.0); CREATININE 0.8 mg/dL (0.55-1.02); Chloride 102 mmol/L (98-107); Estimated GFR 76.31 (mL/min/1.73m2); Glucose 94 mg/dL (74-106); Sodium 138 mmol/L (136-145); TSH (W/Ref FT4) 2.53 uIU/mL (0.36-3.74); Total Protein 7.6 g/dL (6.4-8.2); Vitamin B12 1638 pg/mL (193-986)
[2022-11-30 11:25] LABS: Vitamin D 25 Total 36.8 ng/mL (30-100)
[2022-11-30 11:50] LABS: COVID-19 PCR Negative (Negative)
--- NOTE | 2022-11-30 12:30 | DI.CT_ITS ---
Exam(s) CT HEAD WO EXAM: CT HEAD WO CLINICAL HISTORY: depression, altered. TECHNIQUE: Imaging Protocol: Axial computed tomography images with coronal and sagittal reformatted images were created and reviewed COMPARISON: No exams were available for comparison FINDINGS: Ventricles and Extra axial spaces: Normal in size and morphology for the patient's age. Hemorrhage: None. Cerebral parenchyma: Mild atrophy, otherwise normal. Midline shift: None. Brainstem/Cerebellum: Normal. Calvarium: Normal. Visualized Paranasal sinuses/Mastoids: Clear. Soft Tissues: Unremarkable. IMPRESSION: No acute intracranial process. RADIATION DOSE DELIVERED: 704.32mGy.cm Total DLP DATA REPOSITORY: All CT scans at this facility are submitted to the National Radiology Data Registry (NRDR) Dose Index Registry (DIR) with the [employer] ([employer]). RADIATION OPTIMIZATION: All CT scans at this facility use at least one of these dose optimization te chniques: automated exposure control; mA and/or kV adjustment per patient size (includes targeted exa ms where dose is matched to clinical indication); or iterative reconstruction.
[2022-11-30 13:24] VITALS: BP 144/90; PULSE 75; RESP 18; O2SAT 97
== END 2022-11-30 13:25 | disposition home or self-care (01) ==
PROVIDERS: Emergency Provider Student in an Organized Health Care Education/Training Program; PCP Family Medicine
DX: F32.A Depression, unspecified (principal); Z20.822 Contact with and (suspected) exposure to COVID-19
CPT/HCPCS: 36415; 80053; 82306; 87635; 99284; 70450; 81003; 82607; 83540; 84443; 85025; 99282

== ENCOUNTER 2023-02-07 12:27 | Emergency (ER) | payer OTHER, SELFPAY ==
[2023-02-07] VITALS (8 sets, daily range): BP systolic 123–147; BP diastolic 68–87; PULSE 66–84; RESP 14–24; TEMP 36.9; O2SAT 98–99
--- NOTE | 2023-02-07 12:30 | RT.EKG_ITS ---
APPROVED REPORT Exam: Resting ECG Reason for Exam: chest pain/sob Patient Location: E HR:68 bpm ECG Measurements Heart Rate 68 AXIS CA 148 P -44 QRSd 84 QRS 20 QT 385 T 47 QTc 410 Conclusion Sinus rhythm...normal P axis, V-rate 60- 99 Physician: no stemi
--- NOTE | 2023-02-07 13:00 | DI.CT_ITS ---
Exam(s) CT CHEST PE CTA EXAM: CT CHEST PE CTA CLINICAL HISTORY: chest pain, pleuritic, sob. TECHNIQUE: Imaging Protocol: Axial CT angiography was performed with multi-slice acquisition and mu lti-planar and/or 3D reconstructions. CONTRAST MATERIAL: Intravenous: Omnipaque 350 contrast volume:59 mL COMPARISON: CT CHEST FOR PULMONARY EMBOLUS from 01/04/[address] CHEST HIGH RESOLUTION from 07/29/2021 FINDINGS: Tracheobronchial tree: Patent where visualized. Pulmonary parenchyma: There are few small scattered opacities in the lung. There is 1 in the left up per lobe. There is an area in the posterior aspect of the right upper lobe. There is also periphera l infiltrate/opacity in the medial aspect of the right lower lobe. No architectural distortion. Pulmonary Arteries: No evidence of filling defect to suggest pulmonary emboli. Mediastinum and Elicia: No dominant adenopathy or fluid collection. The esophagus is unremarkable. Th ere are calcified mediastinal lymph nodes. Visualized thyroid gland: Unremarkable. Pleura: No effusion or pneumothorax. Heart: Mild cardiomegaly. No coronary artery calcifications are seen. No pericardial effusion. Aorta: Thoracic aorta non-dilated. No evidence of dissection. Atherosclerosis. Upper abdomen: Unremarkable. Soft tissues: Unremarkable. Bones: Within normal limits for the patient's age. IMPRESSION: 1. No evidence of pulmonary embolism, thoracic aortic dissection or aneurysm. 2. Few scattered opacities within the lungs. These may represent areas of atelectasis or infiltrate. A follow-up examination in 1-2 months is recommended to document clearing and to exclude other etio logies. 3. Findings were discussed with Rae Ro at 2:38 p.m. on 02/07/2023. RADIATION DOSE DELIVERED: 287.55mGy.cm Total DLP DATA REPOSITORY: All CT scans at this facility are submitted to the National Radiology Data Registry (NRDR) Dose Index Registry (DIR) with the [employer] (ACR). RADIATION OPTIMIZATION: All CT scans at this facility use at least one of these dose optimization te chniques: automated exposure control; mA and/or kV adjustment per patient size (includes targeted exa ms where dose is matched to clinical indication); or iterative reconstruction.
[2023-02-07 13:37] LABS: Source Nasal/Nares
--- NOTE | 2023-02-07 13:40 | ED.GENADUL_ITS ---
Discharge Plan Disposition Patient Disposition: Home Discharge Details Clinical Impression: Atypical pneumonia Primary Care Provider: Carrie Mejias ED Provider: Rae Ro Home Meds and New Rx's Prescriptions: New doxycycline hyclate 100 mg capsule 100 mg PO BID 7 Days Qty: 14 0RF Continued garlic [garlic oil] 1,000 mg capsule 2,000 mg PO DAILY albuterol sulfate [ProAir HFA] 90 mcg/actuation HFA aerosol inhaler 2 puff Inhalation Q4H PRN Qty: 1 12RF triamcinolone acetonide 0.1 % cream 1 applic topical BID Qty: 30 0RF Rx Instructions: apply to skin loratadine 10 mg tablet 10 mg PO DAILY PEAK FLOW METER Rx Instructions: USE WHEN YOUR BREATHING WORSENS fluconazole 150 mg tablet 150 mg PO QWEEK PRN (Reason: yeast) Qty: 12 4RF estradiol [Yuvafem] 10 mcg tablet 10 mcg VG .3 times weekly Qty: 36 4RF Dulera 100-5 mcg/actuation HFA aerosol inhaler 2 puff inhalation BID Qty: 13 12RF acetaminophen [Acetaminophen Extra Strength] 500 mg tablet 1,000 mg PO TID PRN PRN (Reason: pain) Qty: 100 6RF omeprazole 40 mg capsule,delayed release(DR/EC) 40 mg PO BID Qty: 60 6RF montelukast 10 mg tablet 10 mg PO DAILY Qty: 90 4RF psyllium Packet 1 packet PO BID cyanocobalamin (vitamin B-12) 5,000 mcg Capsule 5,000 mcg PO DAILY Discharge Instructions Additional Instructions: Take the antibiotic as prescribed Yogurt daily while on antibiotics you do not get an opportunistic stool infection Continue to use your inhalers Return in 48 to 72 hours if you have persistent, new, or worsening symptoms Recommendation for recheck with your primary care physician on Sunday Keep track of your oxygen, if your oxygen dips below 90% you should be reassessed Referrals: Carrie Mejias MD, [place] [Primary Care Provider] - 2 days Discharge Data Discharge Date/Time-TO BE ENTERED AT DEPARTURE: 02/07/23 15:21 Medical Decision Making This 77-year-old female presents with reports of chest pain and shortness of breath. Symptoms have been present for the past 3 days and consistent. Patient does have a history of asthma and she has been using her inhalers as prescribed. She states she does feel like her inhaler helps Secondary to age and comorbidities with left calf swelling on exam, I did order CTA chest and diagnostic labs including troponin, BNP, EKG does not show evidence of acute acute abnormality Patient's vitals are markedly stable, no hypoxia or tachypnea, no tachycardia No history of coronary artery disease Negative troponins with 3 days of symptoms CTA of patient's chest ordered. A consistent with atypical pneumonia, pneumonia this or places patient with bed #66, relatively low risk thanks stable for discharge at this time on antibiotics No hypoxia, ambulatory with steady gait without hypoxia or worsening symptoms Placed on doxycycline 100 mg bid for 10 days HPI General Date/Time Provider Initiated Documentation: 02/07/23 12:37 . HPI Narrative: This 77-year-old female presents with report of acute onset of shortness of breath and pleuritic chest pain after being in [place] and inhaling the smoke. No history of tobacco use, history of asthma per patient. States her symptoms have been persistent since Sunday night. She has an exposure on Sunday morning. Her symptoms have just persisted despite returning home. She denies prior history of pulmonary embolism. She denies any fever or chills. The pain is exacerbated with breathing. She denies calf pain or swelling. She does states she has a history of intermittent calf tenderness. Related Data Home Medications Medication Instructions Recorded Confirmed Peak Flow Meter 10/29/12 01/26/23 cyanocobalamin (vitamin B-12) 5,000 mcg PO DAILY 03/23/21 01/26/23 5,000 mcg capsule psyllium 1 packet PO BID 03/23/21 01/26/23 fluconazole 150 mg tablet 150 mg PO QWEEK PRN yeast #12 tabs 05/02/22 01/26/23 estradiol 10 mcg vaginal tablet 10 mcg vaginal .3 times weekly #36 06/02/22 01/26/23 (Yuvafem) tabs albuterol sulfate 90 mcg/actuation 2 puff inhalation Q4H PRN ##1 06/05/22 01/26/23 aerosol inhaler (ProAir HFA) garlic 1,000 mg capsule (garlic 2,000 mg PO DAILY 06/05/22 01/26/23 oil) mometasone-formoterol HFA 100 2 puff inhalation BID #13 grams 07/31/22 01/26/23 mcg-5 mcg/actuation aerosol inhaler (Dulera) acetaminophen 500 mg tablet 1,000 mg PO TID PRN PRN pain #100 08/25/22 01/26/23 (Acetaminophen Extra Strength) tabs triamcinolone acetonide 0.1 % 1 applic topical BID #30 grams 12/07/22 01/26/23 topical cream omeprazole 40 mg capsule,delayed 40 mg PO BID #60 caps 01/17/23 01/26/23 release loratadine 10 mg tablet 10 mg PO DAILY 01/25/23 01/26/23 montelukast 10 mg tablet 10 mg PO DAILY #90 tabs 01/26/23 doxycycline hyclate 100 mg capsule 100 mg PO BID 7 days #14 caps 02/07/23 Previous Rx's Medication Instructions Recorded fluconazole 150 mg tablet 150 mg PO QWEEK PRN yeast #12 tabs 05/02/22 estradiol 10 mcg vaginal tablet 10 mcg vaginal .3 times weekly #36 06/02/22 (Yuvafem) tabs albuterol sulfate 90 mcg/actuation 2 puff inhalation Q4H PRN ##1 06/05/22 aerosol inhaler (ProAir HFA) mometasone-formoterol HFA 100 2 puff inhalation BID #13 grams 07/31/22 mcg-5 mcg/actuation aerosol inhaler (Dulera) acetaminophen 500 mg tablet 1,000 mg PO TID PRN PRN pain #100 08/25/22 (Acetaminophen Extra Strength) tabs triamcinolone acetonide 0.1 % 1 applic topical BID #30 grams 12/07/22 topical cream omeprazole 40 mg capsule,delayed 40 mg PO BID #60 caps 01/17/23 release montelukast 10 mg tablet 10 mg PO DAILY #90 tabs 01/26/23 doxycycline hyclate 100 mg capsule 100 mg PO BID 7 days #14 caps 02/07/23 Allergies Allergy/AdvReac Type Severity Reaction Status Date / Time clavulanic acid Allergy Severe Verified 02/07/23 12:39 [From Augmentin] tuberculin, purified protein Allergy Unknown Verified 02/07/23 12:39 deriva bupropion AdvReac AGITATION Verified 02/07/23 12:39 codeine AdvReac NAUSEA/VOMI Verified 02/07/23 12:39 TING Esbriet Allergy Intermediate Hives Uncoded 02/07/23 12:39 General Stated Complaint: RespSymp MEI: 3 PFSH All Active Problems (Updated 02/07/23 @ 15:11 by ERIKA Jara) Atypical pneumonia (Acute) Mental status alteration (Acute) Attention deficit (Acute) Shortness of breath (Acute) Anorexia (Acute) Weight loss (Acute 03/12/18) Hyponatremia (Acute) Medication reaction (Acute) IPF (idiopathic pulmonary fibrosis) (Acute) GERD (gastroesophageal reflux disease) (Chronic) Mycobacterial infection, atypical (Acute) Balance problems (Acute) Urinary frequency (Chronic 08/17/17) Fatigue (Chronic 07/12/02) Multiple extensive work ups without etiology Depressive disorder (Chronic) Constipation (Chronic 08/10/14) Bronchiolitis (Chronic) 02/11/16-[facility] 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 AVOID AZITHROMAX - SEE NOTE VJ 06/30/16 SOB Atrophic vaginitis (Chronic) Medical History Abdominal pain Abnormal chest CT Abnormal laboratory test decreased cortisol w/retesting normal Allergic rhinitis Benign neoplasm of skin of perineum benign lesion-resolved Bruising (02/22/15) Complete tear of right rotator cuff (12/12/17) Depressive disorder Ear problem (12/03/07) PERFERATED EARDRUM Falls frequently Hypercholesterolemia Insomnia Insomnia Insomnia Interstitial lung disease Low back pain Low back pain (01/02/17) Malignant neoplasm of cervix uteri hyst;single ovary remains 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) Primary malignant neoplasm of cervix Seborrheic keratoses (01/11/16) LEFT CHEEK, SCAPULA Tear of left supraspinatus tendon (09/04/17) mri 09/03/17 Surgical History Abdominal hysterectomy single ovary remains Appendectomy Colonoscopy - MAC (~2006) Colonoscopy - MAC (10/05/17) H/O bilateral salpingo-oophorectomy HERNIA REPAIR Ligation of fallopian tube BSO Open Carpal Tunnel release S/P abdominal hysterectomy one ovary remains S/P appendectomy S/P carpal tunnel release S/P hernia repair Status post abdominal hysterectomy Status post appendectomy Status post carpal tunnel release Status post hernia repair Family History Mother , 2 Emphysema of lung Stroke COPD (chronic obstructive pulmonary disease) Asthma Father , 85 Lung cancer Brother , 85 COPD (chronic obstructive pulmonary disease) Lung cancer Maternal Grandfather No problems noted. Paternal Grandfather No problems noted. Maternal Grandmother No problems noted. Paternal Grandmother No problems noted. Brother , 70 Diabetes Colon cancer Sister , 80 Diabetes Lung cancer Sister , 81 Cancer Social History Smoking/Tobacco Use Status: Never Second Hand Exposure: Yes Smoking risk assessment performed?: Yes Alcohol Intake: former Drug use: Never Substance use type: does not use Household members: spouse Housing: house Do you need help understanding health information?: Often Pets and animals: Yes Pets and animals: cat(s) Sexually active: Yes Do you think of yourself as: straight/heterosexual What is your relationship status?: How often do you talk on the phone with friends or family?: twice per week How often do you get together with friends or relatives?: once per week How often do you attend sabianist or spiritism services?: decline to answer Do you belong to any clubs or organized social groups?: no Panel score (0-1 are the most socially isolated patients): 2 What type of physical activity do you participate in: walking Duration: 30-45 minutes/day Frequency: 3-4 times per week Annelise/Catholic: No preference Special annelise needs: No Seatbelt use: always 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 Do you feel safe at home: Yes Do you feel safe in your relationship?: Yes Course Vital Signs Vital signs: Vital Signs Temperature 36.9 C 02/07/23 12:33 Pulse 70 02/07/23 12:33 Respiratory Rate 17 02/07/23 12:33 Blood Pressure 125/79 02/07/23 12:33 Pulse Oximetry 99 02/07/23 12:33 Temperature 36.9 C 02/07/23 12:33 Temperature Source Oral 02/07/23 12:33 Pulse 70 02/07/23 12:33 Respiratory Rate 17 02/07/23 12:33 Respiratory Effort Normal, Short of Breath 02/07/23 12:56 Respiratory Depth Normal 02/07/23 12:47 Blood Pressure 125/79 02/07/23 12:33 Pulse Oximetry 99 02/07/23 12:33 Oxygen Delivery Method Room Air 02/07/23 12:33 Oxygen Flow Rate 0 02/07/23 12:33 Pain Level 5 02/07/23 12:33 Lab/Test Results Lab/Test Results: Laboratory Tests Range/Units 02/07/23 13:30 COVID-19 Source Nasal/Nares
[2023-02-07 13:54] LABS: Abs Immature Grans 0.02 10^3/uL (0.0-0.06); Absolute Basophil Count 0.06 10^3/uL (0.0-0.2); Absolute Eosinophil Count 0.25 10^3/uL (0.0-0.7); Absolute Lymphocyte Count 2.59 10^3/uL (1.2-3.4); Basophils % 0.6; Eosinophils % 2.5; HCT 41.1 % (36.0-46.0); HGB 13.4 g/dL (11.2-15.7); Immature Grans % 0.2; Lymphocytes % 25.6; MCH 27.3 pg (27.0-33.0); MCHC 32.6 % (32.0-36.0); MCV 84 fL (80-95); MPV 11.5 fL (8.0-11.0); Monocytes % 11.9; Neutrophils % 59.2; Platelet Count 262 10^3/uL (130-400); RDW 14.1 % (11.7-14.6); RDW-SD 43.5 fL; WBC 10.12 10^3/uL (4.4-10.8)
[2023-02-07] MEDS: Omnipaque 350 MG/ML 100 ML BTL IJ (14:00)
[2023-02-07] MEDS: Normal Saline - Diluent 50 ML VIAL IJ (14:02)
[2023-02-07] MEDS: Normal Saline Flush 10 ML SYR IVP (14:03)
[2023-02-07 14:08] LABS: ALT 17 U/L (14-59); AST 17 U/L (15-37); Albumin 3.3 g/dL (3.4-5.0); Alkaline Phosphatase 127 U/L (46-116); Anion Gap 9.5 mmol/L (3-11); BUN 11 mg/dL (7-18); Bilirubin, Total 0.5 mg/dL (0.2-1.0); CO2 28.5 mmol/L (21.0-32.0); CREATININE 0.8 mg/dL (0.55-1.02); Calcium 8.9 mg/dL (8.5-10.1); Chloride 99 mmol/L (98-107); Estimated GFR 76.31 (mL/min/1.73m2); Glucose 90 mg/dL (74-106); Lipase 24 U/L (16-77); NT-proBNP 209 pg/mL (<300); Potassium 3.6 mmol/L (3.5-5.1); Sodium 137 mmol/L (136-145); Total Protein 7.6 g/dL (6.4-8.2); Troponin I < 50 ng/L (<or=60)
[2023-02-07 14:45] LABS: COVID-19 PCR Negative (Negative)
== END 2023-02-07 15:21 | disposition home or self-care (01) ==
PROVIDERS: Emergency Provider Physician Assistant; PCP Family Medicine
DX: J18.9 Pneumonia, unspecified organism (principal); R07.9 Chest pain, unspecified
CPT/HCPCS: 71275; 80053; 83690; 87635; 93005; 99285; 83880; 84484; 85025; 93010; 99284; J3490

== ENCOUNTER 2023-03-27 03:46 | Outpatient (CLI) | payer OTHER, SELFPAY ==
[2023-03-27] MEDS: Albuterol HFA 18 GM 200 PUFF INH IH (13:47)
[2023-03-27] MEDS: Inhaler, Assist Device 1 EACH MC (13:48)
--- NOTE | 2023-03-30 13:13 | W.PFT ---
Date of service: 03/27/23 Time of Service: 12:59 Pulmonary Function Test Result Indications: IPF Interpretation Spirometry: There is no airflow limitation. No bronchodilator response. Diffusion Capacity: Normal diffusion Impression Normal spirometry and diffusion. Note: When compared to 03/05/23 office spirometry, there is significant improvement. When compared to 05/12/21 (in lab)lung function is stable. Clinical Correlation therefore is recommended.
== END 2023-03-27 03:47 | disposition home or self-care (01) ==
LOC: RT 03:46
PROVIDERS: PCP Family Medicine; Visit Provider Student in an Organized Health Care Education/Training Program
DX: J84.112 Idiopathic pulmonary fibrosis (principal)
CPT/HCPCS: 94060; 94729

== ENCOUNTER → 2023-04-02 01:17 | Outpatient (CLI) | payer OTHER, SELFPAY ==
--- NOTE | 2023-04-02 07:45 | DI.CT_ITS ---
Exam(s) CT CHEST WO EXAM: CT CHEST WO CLINICAL HISTORY: f/u resolution of nodules,r91.8. TECHNIQUE: Imaging protocol: Axial computed tomography images were obtained and coronal and sagittal reformatted images were created and reviewed. COMPARISON: CT CT CHEST PE CTA from 02/07/2023 FINDINGS: The examination is limited due to patient motion artifact. Tracheobronchial tree: Patent where visualized. Pulmonary parenchyma: There is a stable 2 mm nodule in the periphery of the left lower lobe. There a re calcified granuloma present.. The opacity in the posterior aspect of the right upper lobe appears nearly completely resolved. The infiltrate in the left upper lobe has also resolved. There is mild peripheral interstitial disease present which is likely chronic. Mediastinum and Elicia: Stable appearance of the mediastinum. The esophagus is unremarkable. Thyroid gland: Unremarkable. Pleura: No effusion or pneumothorax. Heart: Mild cardiomegaly. No coronary artery calcifications are seen. No significant pericardial eff usion. Calcification of the aortic annulus. Aorta: Thoracic aorta non-dilated. Atherosclerosis is present. Upper abdomen: Unremarkable. Lymph nodes: Within normal limits. Soft tissues: Unremarkable. Bones:Within normal limits for the patient's age. IMPRESSION: 1. Resolution of the left upper lobe infiltrate and near complete resolution of the infiltrate in the posterior aspect of the right upper lobe. 2. Stable 2 mm left lower lobe peripheral pulmonary nodule. Follow-up examination in 12 months is re commended for re-evaluation. RADIATION DOSE DELIVERED: 367.65mGy.cm Total DLP 367.65mGy.cm Total DLP DATA REPOSITORY: All CT scans at this facility are submitted to the National Radiology Data Registry (NRDR) Dose Index Registry (DIR) with the [employer] (A[employer]). RADIATION OPTIMIZATION: All CT scans at this facility use at least one of these dose optimization te chniques: automated exposure control; mA and/or kV adjustment per patient size (includes targeted exa ms where dose is matched to clinical indication); or iterative reconstruction.
== END ==
PROVIDERS: PCP Family Medicine; Visit Provider Student in an Organized Health Care Education/Training Program
DX: R91.8 Other nonspecific abnormal finding of lung field (principal)
CPT/HCPCS: 71250

== ENCOUNTER → 2023-06-04 09:30 | Outpatient (BNVA) | payer OTHER, SELFPAY | PROVIDERS: PCP Family Medicine; Referring Provider Family Medicine; Visit Provider Physician Assistant Surgical | DX: J84.112 Idiopathic pulmonary fibrosis (principal); A31.9 Mycobacterial infection, unspecified; K21.9 Gastro-esophageal reflux disease without esophagitis; R53.83 Other fatigue; J18.9 Pneumonia, unspecified organism | CPT/HCPCS: 99214 ==

== ENCOUNTER 2023-06-04 14:00 | Outpatient (CLI) | payer OTHER, SELFPAY ==
[2023-06-04 10:59] LABS: Abs Immature Grans 0.01 10^3/uL (0.0-0.06); Absolute Basophil Count 0.07 10^3/uL (0.0-0.2); Absolute Eosinophil Count 0.38 10^3/uL (0.0-0.7); Absolute Lymphocyte Count 2.37 10^3/uL (1.2-3.4); Absolute Monocyte Count 0.78 10^3/uL (0.1-0.8); Eosinophils % 5.2; HCT 42.2 % (36.0-46.0); HGB 13.7 g/dL (11.2-15.7); Immature Grans % 0.1; Lymphocytes % 32.4; MCH 27.5 pg (27.0-33.0); MCHC 32.5 % (32.0-36.0); MCV 85 fL (80-95); MPV 11.2 fL (8.0-11.0); Monocytes % 10.7; Neutrophils % 50.6; Platelet Count 205 10^3/uL (130-400); RBC 4.99 10^6/uL (3.93-5.22); RDW 14.3 % (11.7-14.6); WBC 7.31 10^3/uL (4.4-10.8)
[2023-06-04 11:45] LABS: ALT 19 U/L (14-59); AST 23 U/L (15-37); Albumin 3.5 g/dL (3.4-5.0); Alkaline Phosphatase 135 U/L (46-116); Anion Gap 7.7 mmol/L (3-11); BUN 11 mg/dL (7-18); Bilirubin, Total 0.3 mg/dL (0.2-1.0); CO2 29.3 mmol/L (21.0-32.0); CREATININE 0.8 mg/dL (0.55-1.02); Calcium 9.3 mg/dL (8.5-10.1); Chloride 102 mmol/L (98-107); Estimated GFR 75.84 (mL/min/1.73m2); Glucose 99 mg/dL (74-106); Sodium 139 mmol/L (136-145); TSH (W/Ref FT4) 2.31 uIU/mL (0.36-3.74); Total Protein 7.3 g/dL (6.4-8.2)
[2023-06-04 12:00] LABS: Vitamin D 25 Total 34.9 ng/mL (30-100)
== END 2023-06-04 14:01 | disposition home or self-care (01) ==
LOC: LBO 14:00
PROVIDERS: PCP Family Medicine; Visit Provider Physician Assistant Surgical
DX: R53.83 Other fatigue (principal); E55.9 Vitamin D deficiency, unspecified
CPT/HCPCS: 36415; 80053; 82306; 84443; 85025

== ENCOUNTER → 2023-09-11 12:49 | Outpatient (BNVA) | payer OTHER, SELFPAY | PROVIDERS: PCP Family Medicine; Referring Provider Family Medicine; Visit Provider Student in an Organized Health Care Education/Training Program | DX: J84.112 Idiopathic pulmonary fibrosis (principal); K21.9 Gastro-esophageal reflux disease without esophagitis; A31.9 Mycobacterial infection, unspecified; J45.909 Unspecified asthma, uncomplicated | CPT/HCPCS: 99214 ==

== ENCOUNTER 2024-02-08 01:50 | Outpatient (CLI) | payer OTHER, SELFPAY ==
[2024-02-08] MEDS: Inhaler, Assist Device 1 EACH MC (14:10)
[2024-02-08] MEDS: Levalbuterol HFA 15 GM INH 4 PUFF IH (14:10)
--- NOTE | 2024-02-19 09:19 | W.PFT ---
Date of service: 02/08/24 Time of Service: 13:03 Pulmonary Function Test Result Requesting Provider Carol Myrick Indications: IPF Interpretation Spirometry: Normal Lung Volumes: Normal Diffusion Capacity: mild decrease in diffusion Impression Normal spirometry, lung volumes and mild decrease in diffusion that could be c/w hx/o IPF Clinical Correlation therefore is recommended.
== END 2024-02-08 01:51 | disposition home or self-care (01) ==
LOC: RT 01:50
PROVIDERS: PCP Family Medicine; Visit Provider Student in an Organized Health Care Education/Training Program
DX: J84.112 Idiopathic pulmonary fibrosis (principal)
CPT/HCPCS: 00123; 94060; 94726; 94729

== ENCOUNTER → 2024-03-13 13:36 | Outpatient (BNVA) | payer OTHER, SELFPAY | PROVIDERS: PCP Family Medicine; Referring Provider Family Medicine; Visit Provider Physician Assistant Surgical | DX: J84.112 Idiopathic pulmonary fibrosis (principal); K21.9 Gastro-esophageal reflux disease without esophagitis; A31.9 Mycobacterial infection, unspecified; J45.909 Unspecified asthma, uncomplicated | CPT/HCPCS: 99214 ==

== ENCOUNTER 2024-04-03 02:20 | Outpatient (CLI) | payer OTHER, SELFPAY ==
--- NOTE | 2024-04-03 13:40 | DI.CT_ITS ---
Exam(s) CT CHEST WO EXAM: CT CHEST WO CLINICAL HISTORY: foF/U IDIOPATHIC PULMONARY FIBROSIS,J84.112 TECHNIQUE: Imaging Protocol: Axial computed tomography images with coronal and sagittal reformatted images were created and reviewed CONTRAST MATERIAL: Intravenous: Omnipaque 350 Contrast volume:structured data ml. COMPARISON: CT CT CHEST WO from 04/02/2023 FINDINGS: Pulmonary parenchyma: No consolidation. No dominant measurable mass. Increased interstitial thickeni ng seen in both upper and lower lobes, greater peripherally. Scattered calcified granulomas and micr o nodules. No suspicious nodules. Tracheobronchial tree: No bronchiectasis or mucous plugging. Mediastinum and Elicia: No dominant adenopathy or fluid collection. Pleura: No effusion. No pneumothorax. Heart: The heart is not dilated. No coronary artery calcifications are seen. Aorta: Thoracic aorta non-dilated. Mild atherosclerotic changes. Pulmonary arteries: No gross evidence of emboli. Upper abdomen: No acute findings. Bones: Degenerative changes in the spine. Soft tissues: Unremarkable. IMPRESSION: Stable appearance of interstitial fibrosis. RADIATION DOSE DELIVERED: Total DLP DATA REPOSITORY: All CT scans at this facility are submitted to the National Radiology Data Registry (NRDR) Dose Index Registry (DIR) with the [employer] (ACR). RADIATION OPTIMIZATION: All CT scans at this facility use at least one of these dose optimization te chniques: automated exposure control; mA and/or kV adjustment per patient size (includes targeted exa ms where dose is matched to clinical indication); or iterative reconstruction.
== END 2024-04-03 02:40 ==
LOC: DI 02:20
PROVIDERS: PCP Family Medicine; Visit Provider Physician Assistant Surgical
DX: J84.112 Idiopathic pulmonary fibrosis (principal)
CPT/HCPCS: 71250

== ENCOUNTER 2024-07-17 13:47 | Outpatient (CLI) | payer OTHER, SELFPAY ==
[2024-07-17 12:51] LABS: Abs Immature Grans 0.02 10^3/uL (0.0-0.06); Absolute Basophil Count 0.07 10^3/uL (0.0-0.2); Absolute Eosinophil Count 0.43 10^3/uL (0.0-0.7); Absolute Lymphocyte Count 2.61 10^3/uL (1.2-3.4); Absolute Monocyte Count 0.72 10^3/uL (0.1-0.8); Absolute Neutrophil Count 4.51 10^3/uL (1.2-6.7); Basophils % 0.8 %; Eosinophils % 5.1 %; HCT 44.3 % (36.0-46.0); HGB 14.3 g/dL (11.2-15.7); Immature Grans % 0.2 %; Lymphocytes % 31.2 %; MCH 28.2 pg (27.0-33.0); MCHC 32.3 % (32.0-36.0); MCV 87 fL (80-95); MPV 10.7 fL (8.0-11.0); Monocytes % 8.6 %; Neutrophils % 54.1 %; Platelet Count 263 10^3/uL (130-400); RBC 5.07 10^6/uL (3.93-5.22); RDW 13.7 % (11.7-14.6); RDW-SD 44.2 fL; WBC 8.36 10^3/uL (4.4-10.8)
[2024-07-17 13:06] LABS: ALT 17 U/L (14-59); AST 24 U/L (15-37); Albumin 3.9 g/dL (3.4-5.0); Alkaline Phosphatase 120 U/L (46-116); Anion Gap 9.7 mmol/L (3-11); BUN 11 mg/dL (7-18); Bilirubin, Total 0.42 mg/dL (0.2-1.0); CO2 26.3 mmol/L (21.0-32.0); CREATININE 0.9 mg/dL (0.55-1.02); Calcium 9.3 mg/dL (8.5-10.1); Chloride 101 mmol/L (98-107); Estimated GFR 65.44 (mL/min/1.73m2); Glucose 81 mg/dL (74-106); Potassium 4.4 mmol/L (3.5-5.1); Sodium 137 mmol/L (136-145); Total Protein 7.7 g/dL (6.4-8.2)
== END 2024-07-17 13:48 | disposition home or self-care (01) ==
LOC: LBO 13:48
PROVIDERS: PCP Family Medicine; Visit Provider Family Medicine
DX: I10 Essential (primary) hypertension (principal); R05.9 Cough, unspecified
CPT/HCPCS: 36415; 80053; 85025

== ENCOUNTER 2024-07-17 13:51 | Outpatient (CLI) | payer OTHER, SELFPAY ==
--- NOTE | 2024-07-17 12:30 | DI.RAD_ITS ---
Exam(s) XR CHEST 2V PA LATERAL EXAM: XR CHEST 2V PA LATERAL CLINICAL HISTORY: SOB, R06.02; IPF, J84.112 TECHNIQUE: 2D digital imaging was performed. Two views. COMPARISON: CR,XR XR CHEST 2V PA LATERAL from 09/09/[address] CHEST WO from 04/03/2024 FINDINGS: HEART: Normal size. Aorta: Not dilated. Mildly tortuous. PULMONARY VASCULATURE: Normal. MEDIASTINUM: Unremarkable. LUNGS: Mildly hyperinflated. Mildly increased interstitial changes greater in the right upper lobe p eripherally. No superimposed infiltrate. PLEURAL SPACE: No pleural effusion or pneumothorax. BONE:Unremarkable for age. SOFT TISSUES: Unremarkable. IMPRESSION: No acute abnormality. DATA REPOSITORY: RADIATION DOSE DELIVERED:
== END 2024-07-17 14:11 ==
LOC: DI 13:52
PROVIDERS: PCP Family Medicine; Visit Provider Family Medicine
DX: R06.02 Shortness of breath (principal); J84.112 Idiopathic pulmonary fibrosis
CPT/HCPCS: 71046

== ENCOUNTER → 2024-09-10 12:38 | Outpatient (BNVA) | payer MEDICARE, MEDICAID, SELFPAY | PROVIDERS: PCP Family Medicine; Referring Provider Family Medicine; Visit Provider Physician Assistant Surgical | DX: J45.909 Unspecified asthma, uncomplicated (principal); J84.112 Idiopathic pulmonary fibrosis; K21.9 Gastro-esophageal reflux disease without esophagitis; I50.9 Heart failure, unspecified | CPT/HCPCS: 36415; 99214 ==

== ENCOUNTER 2024-09-10 13:58 | Outpatient (REF) | payer MEDICARE, MEDICAID, SELFPAY ==
[2024-09-10 14:38] LABS: NT-proBNP 103 pg/mL (<300)
== END 2024-09-10 13:59 | disposition home or self-care (01) ==
LOC: LBN 13:58
PROVIDERS: PCP Family Medicine; Visit Provider Physician Assistant Surgical
DX: I50.9 Heart failure, unspecified (principal)
CPT/HCPCS: 83880

== ENCOUNTER 2024-09-18 02:05 | Outpatient (CLI) | payer MEDICARE, SELFPAY ==
[2024-09-18] MEDS: Levalbuterol HFA 15 GM INH 4 PUFF IH (14:49)
[2024-09-18] MEDS: Inhaler, Assist Device 1 EACH MC (14:49)
--- NOTE | 2024-09-23 12:29 | W.PFT ---
Date of service: 09/18/24 Time of Service: 12:51 Pulmonary Function Test Result Indications: IPF Interpretation Spirometry: There is no airflow limitation. No bronchodilator response. Lung Volumes: Normal lung volumes Diffusion Capacity: Decreased diffusion Airway Pressure: Normal airways resistance Impression Isolated decreased diffusion. Clinical Correlation therefore is recommended.
== END 2024-09-18 02:06 | disposition home or self-care (01) ==
LOC: RT 02:05
PROVIDERS: PCP Family Medicine; Visit Provider Student in an Organized Health Care Education/Training Program
DX: J84.112 Idiopathic pulmonary fibrosis (principal)
CPT/HCPCS: 94060; 94726; 94729

== ENCOUNTER → 2024-10-08 08:38 | Outpatient (BNVA) | payer MEDICARE, MEDICAID, SELFPAY | PROVIDERS: PCP Family Medicine; Referring Provider Family Medicine; Visit Provider Physician Assistant Surgical | DX: J84.112 Idiopathic pulmonary fibrosis (principal); K21.9 Gastro-esophageal reflux disease without esophagitis; J45.909 Unspecified asthma, uncomplicated | CPT/HCPCS: 99214 ==

== ENCOUNTER 2024-10-23 01:11 | Outpatient (CLI) | payer MEDICARE, MEDICAID, SELFPAY ==
--- NOTE | 2024-10-23 11:02 | DI.RAD_ITS ---
Exam(s) XR SHOULDER RT COMPLETE 2+V EXAM: XR SHOULDER RT COMPLETE 2+V CLINICAL HISTORY: shoulder pain,m25.519. TECHNIQUE: 2D digital imaging was performed of the right shoulder. Five images were obtained. AP, Grashey, Y-view and axillary views were obtained. COMPARISON: CR RIGHT HUMERUS from 03/26/2017 FINDINGS: BONES: No acute fracture is present. No bony destructive lesion is seen. There is now absence of the distal right clavicle. JOINTS: No dislocation present. Glenohumeral joint is well maintained. Mild arthrosis is seen at the greater tuberosity. SOFT TISSUE: Normal. IMPRESSION: 1. Arthrosis at the greater tuberosity. 2. Absence of the distal right clavicle. This may be due to erosion or surgery. Please correlate cl inically. DATA REPOSITORY: RADIATION DOSE DELIVERED:
== END 2024-10-23 01:31 ==
LOC: DI 01:11
PROVIDERS: PCP Family Medicine; Visit Provider Family Medicine
DX: M25.511 Pain in right shoulder (principal)
CPT/HCPCS: 73030

== ENCOUNTER 2025-01-09 10:44 | Emergency (ER) | payer MEDICARE, MEDICAID, SELFPAY ==
[2025-01-09] VITALS (11 sets, daily range): BP systolic 103–126; BP diastolic 52–60; PULSE 84–98; RESP 22–24; TEMP 36.5–39.3; O2SAT 81–97
--- NOTE | 2025-01-09 10:45 | RT.EKG_ITS ---
APPROVED REPORT Exam: Resting ECG Reason for Exam: chest pain Patient Location: E HR:96 bpm ECG Measurements Heart Rate 96 AXIS NJ 135 P -83 QRSd 81 QRS 46 QT 336 T 53 QTc 425 Conclusion Ectopic atrial rhythm...abnormal P axis, normal rate
[2025-01-09 11:28] LABS: BE (Venous) 2 mmol/L (-2-3); HCO3 (Venous) 27 mmol/L (23-28); Lactate 1.4 mmol/L (<or=2.0); O2 Sat (Venous) 58 %; TCO2 (Venous) 24 mmol/L (24-29); pCO2 (Venous) 44 mmHg (41-51); pH (Venous) 7.39 (7.31-7.41); pO2 (Venous) 31 mmHg
[2025-01-09 11:31] LABS: Abs Immature Grans 0.04 10^3/uL (0.0-0.06); Absolute Eosinophil Count 0.01 10^3/uL (0.0-0.7); Absolute Lymphocyte Count 1.16 10^3/uL (1.2-3.4); Absolute Monocyte Count 1.19 10^3/uL (0.1-0.8); Absolute Neutrophil Count 9.58 10^3/uL (1.2-6.7); Basophils % 0.2 %; Eosinophils % 0.1 %; HCT 41.2 % (36.0-46.0); HGB 13.1 g/dL (11.2-15.7); Immature Grans % 0.3 %; Lymphocytes % 9.7 %; MCH 27.6 pg (27.0-33.0); MCHC 31.8 % (32.0-36.0); MCV 87 fL (80-95); MPV 10.4 fL (8.0-11.0); Monocytes % 9.9 %; Neutrophils % 79.8 %; Platelet Count 282 10^3/uL (130-400); RBC 4.74 10^6/uL (3.93-5.22); RDW 14.1 % (11.7-14.6); RDW-SD 45.4 fL; WBC 12.01 10^3/uL (4.4-10.8)
[2025-01-09 11:33] LABS: Absolute Basophil Count 0.02 10^3/uL (0.0-0.2)
[2025-01-09] MEDS: Lactated Ringers 500 ML 1000 ML IV (11:38)
[2025-01-09 11:49] LABS: ALT 18 U/L (14-59); AST 29 U/L (15-37); Albumin 3.6 g/dL (3.4-5.0); Alkaline Phosphatase 109 U/L (46-116); Anion Gap 7.4 mmol/L (3-11); BUN 10 mg/dL (7-18); Bilirubin, Total 0.7 mg/dL (0.2-1.0); CO2 28.6 mmol/L (21.0-32.0); CREATININE 0.9 mg/dL (0.55-1.02); Chloride 98 mmol/L (98-107); Estimated GFR 65.44 (mL/min/1.73m2); Glucose 134 mg/dL (74-106); Potassium 3.9 mmol/L (3.5-5.1); Sodium 134 mmol/L (136-145); Total Protein 7.5 g/dL (6.4-8.2); Troponin I 6 ng/L (<or=51)
--- NOTE | 2025-01-09 11:56 | DI.RAD_ITS ---
Exam(s) XR CHEST 2V PA LATERAL EXAM: XR CHEST 2V PA LATERAL CLINICAL HISTORY: cough. TECHNIQUE: 2D digital imaging was performed. COMPARISON: CR XR CHEST 2V PA LATERAL from 07/17/2024 FINDINGS: 2 views: Heart size is normal. The mediastinum is not widened. Lungs are clear. No infiltrates nor pleural effusions. Right AC joint again noted be widened which is probably postsurgical. IMPRESSION: No acute pulmonary findings. DATA REPOSITORY: RADIATION DOSE DELIVERED:
[2025-01-09 12:09] LABS: COVID-19 PCR Negative (Negative); Influenza A PCR Negative (Negative); Influenza B PCR Negative (Negative); RSV PCR Negative (Negative)
[2025-01-09 12:11] LABS: Source Nasopharynx
[2025-01-09] MEDS: Acetaminophen 325 MG TAB 650 MG PO (12:31)
[2025-01-09] MEDS: Ibuprofen 400 MG TAB PO (12:31)
[2025-01-09] MEDS: Albuterol/Ipratropium 3 ML UPD VIAL UPD (12:31)
--- NOTE | 2025-01-09 13:09 | ED.GENADUL_ITS ---
Discharge Plan Disposition Patient Disposition: Home Condition: Stable Discharge Details Clinical Impression: Acute bronchitis Primary Care Provider: Carrie Mejias ED Provider: Finesse Otoole Home Meds and New Rx's Prescriptions: New doxycycline hyclate 100 mg tablet 100 mg PO BID Qty: 14 0RF Continued garlic [garlic oil] 1,000 mg capsule 2,000 mg PO DAILY ipratropium-albuterol 0.5 mg-3 mg(2.5 mg base)/3 mL solution for nebulization 3 ml inhalation Q6H PRN (Reason: wheezing) Qty: 180 1RF Rx Instructions: COPD, bronchioectasis albuterol sulfate 5 mg/mL solution for nebulization 5 mg inhalation QID PRN (Reason: shortness of breath or wheezing) Qty: 600 4RF Dulera 200-5 mcg/actuation HFA aerosol inhaler 2 puff inhalation BID Qty: 13 6RF albuterol sulfate 90 mcg/actuation HFA aerosol inhaler 2 puff Inhalation Q4H PRN Qty: 1 12RF losartan 50 mg tablet 50 mg PO DAILY Qty: 90 4RF PEAK FLOW METER Rx Instructions: USE WHEN YOUR BREATHING WORSENS ibuprofen 600 mg tablet 600 mg PO BID PRN (Reason: pain) Qty: 60 1RF montelukast 10 mg tablet 10 mg PO DAILY Qty: 90 4RF loratadine 10 mg tablet 10 mg PO DAILY Qty: 90 0RF triamcinolone acetonide 0.1 % cream 1 applic topical BID Qty: 30 0RF Rx Instructions: apply to skin fluconazole 150 mg tablet 150 mg PO QWEEK PRN (Reason: yeast) Qty: 12 4RF estradiol [Yuvafem] 10 mcg tablet 10 mcg VG .3 times weekly Qty: 36 4RF omeprazole 40 mg capsule,delayed release(DR/EC) 40 mg PO BID Qty: 60 12RF prednisone 20 mg tablet See Rx Instructions PO DAILY Qty: 11 0RF Rx Instructions: 2 tabs daily for 3 days; 1 tab daily for 3 days; 0.5 tab daily for 4 days acetaminophen [Acetaminophen Extra Strength] 500 mg tablet 1,000 mg PO TID PRN PRN (Reason: pain) Qty: 100 6RF psyllium Packet 1 packet PO BID cyanocobalamin (vitamin B-12) 5,000 mcg Capsule 5,000 mcg PO DAILY Discharge Instructions Instructions: Bronchitis, Adult ED Additional Instructions: 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 Call today to arrange timely follow-up. Take full course of antibiotic as prescribed. Please allow for plenty of rest. Drink plenty of fluids. Return to the ER immediately for any worsening or new concerning symptoms. Referrals: [facility] Pulmonary Clinic [Provider Group] Carrie Mejias MD, [place] [Primary Care Provider] - [facility] General Mode of arrival: ambulatory . Date/Time Provider Initiated Documentation: 01/09/25 11:20 . Limitations to Documentation: no limitations . Information obtained by: patient . HPI Narrative: HISTORY OF PRESENT ILLNESS The patient presents with fever, cough, and sore throat for 3 days. Cough is nonproductive. She does have associated shortness of breath. Patient has known idiopathic pulmonary fibrosis and uses albuterol inhaler for this. She denies urinary symptoms, dysuria, rash, or tick bites. Related Data Home Medications ?Medication ?Instructions ?Recorded ?Confirmed Peak Flow Meter 10/29/12 10/21/24 cyanocobalamin (vitamin B-12) 5,000 mcg PO DAILY 03/23/21 01/09/25 5,000 mcg capsule psyllium 1 packet PO BID 03/23/21 01/09/25 garlic 1,000 mg capsule (garlic 2,000 mg PO DAILY 06/05/22 01/09/25 oil) ibuprofen 600 mg tablet 600 mg PO BID PRN pain #60 tabs 06/11/23 01/09/25 loratadine 10 mg tablet 10 mg PO DAILY #90 tabs 02/11/24 01/09/25 montelukast 10 mg tablet 10 mg PO DAILY #90 tabs 02/11/24 01/09/25 triamcinolone acetonide 0.1 % 1 applic topical BID #30 grams 05/06/24 01/09/25 topical cream albuterol sulfate 90 mcg/actuation 2 puff inhalation Q4H PRN ##1 05/20/24 01/09/25 aerosol inhaler fluconazole 150 mg tablet 150 mg PO QWEEK PRN yeast #12 tabs 06/12/24 01/09/25 estradiol 10 mcg vaginal tablet 10 mcg vaginal .3 times weekly #36 11/07/24 05/30/25 (Yuvafem) tabs losartan 50 mg tablet 50 mg PO DAILY #90 tabs 07/17/24 01/09/25 albuterol sulfate 5 mg/mL(0.5 %) 5 mg inhalation QID PRN shortness 08/18/24 01/09/25 solution for nebulization of breath or wheezing #600 mL omeprazole 40 mg capsule,delayed 40 mg PO BID #60 caps 08/20/24 01/09/25 release mometasone-formoterol HFA 200 2 puff inhalation BID #13 grams 09/18/24 01/09/25 mcg-5 mcg/actuation aerosol inhaler (Dulera) ipratropium 0.5 mg-albuterol 3 mg 3 ml inhalation Q6H PRN wheezing 10/21/24 01/09/25 (2.5 mg base)/3 mL nebulization #180 mL soln prednisone 20 mg tablet See Rx Instructions PO DAILY #11 10/23/24 01/09/25 tabs acetaminophen 500 mg tablet 1,000 mg (2 x 500 mg) PO TID PRN 12/05/24 01/09/25 (Acetaminophen Extra Strength) PRN pain #100 tabs doxycycline hyclate 100 mg tablet 100 mg PO BID #14 tabs 01/09/25 Previous Rx's ?Medication ?Instructions ?Recorded ibuprofen 600 mg tablet 600 mg PO BID PRN pain #60 tabs 06/11/23 loratadine 10 mg tablet 10 mg PO DAILY #90 tabs 02/11/24 montelukast 10 mg tablet 10 mg PO DAILY #90 tabs 02/11/24 triamcinolone acetonide 0.1 % 1 applic topical BID #30 grams 05/06/24 topical cream albuterol sulfate 90 mcg/actuation 2 puff inhalation Q4H PRN ##1 05/20/24 aerosol inhaler fluconazole 150 mg tablet 150 mg PO QWEEK PRN yeast #12 tabs 06/12/24 estradiol 10 mcg vaginal tablet 10 mcg vaginal .3 times weekly #36 06/19/24 (Yuvafem) tabs losartan 50 mg tablet 50 mg PO DAILY #90 tabs 07/17/24 albuterol sulfate 5 mg/mL(0.5 %) 5 mg inhalation QID PRN shortness 08/18/24 solution for nebulization of breath or wheezing #600 mL omeprazole 40 mg capsule,delayed 40 mg PO BID #60 caps 08/20/24 release mometasone-formoterol HFA 200 2 puff inhalation BID #13 grams 09/18/24 mcg-5 mcg/actuation aerosol inhaler (Dulera) ipratropium 0.5 mg-albuterol 3 mg 3 ml inhalation Q6H PRN wheezing 10/21/24 (2.5 mg base)/3 mL nebulization #180 mL soln prednisone 20 mg tablet See Rx Instructions PO DAILY #11 10/23/24 tabs acetaminophen 500 mg tablet 1,000 mg (2 x 500 mg) PO TID PRN 12/05/24 (Acetaminophen Extra Strength) PRN pain #100 tabs doxycycline hyclate 100 mg tablet 100 mg PO BID #14 tabs 01/09/25 Allergies Allergy/AdvReac Type Severity Reaction Status Date / Time clavulanic acid (From Allergy Severe unknown Verified 01/09/25 11:01 Augmentin) tuberculin, purified protein Allergy Unknown unknown Verified 01/09/25 11:01 deriva bupropion AdvReac AGITATION Verified 01/09/25 11:01 codeine AdvReac NAUSEA/VOMI Verified 01/09/25 11:01 TING Esbriet Allergy Intermediate Hives Uncoded 01/09/25 11:01 General Stated Complaint: GenMedical MEI: 3 Review of Systems All systems reviewed & are unremarkable except as noted in HPI and below Constitutional Constitutional: Reports fever(s) Exam Const General: cooperative and no acute distress HENMT Mouth: moist mucous membranes Eyes Conjunctivae: normal conjunctivae Sclera: normal sclerae Neck Neck: trachea midline and supple Resp Auscultation: no rales and no wheezes Cardio Rate: regular rate and not tachycardic Rhythm: regular rhythm GI Palpation: soft, not firm, no guarding, no masses, not rigid and nontender Skin General skin exam: no rashes or lesions noted Neuro General: patient alert, patient awake and tone normal Extrem General: no calf tenderness and no edema Psych Appearance: grossly normal Mental Status: mental status grossly normal Course Vital Signs Vital signs: Vital Signs Temperature 39.3 C H 01/09/25 10:47 Pulse 98 H 01/09/25 10:47 Respiratory Rate 22 01/09/25 10:47 Blood Pressure 126/60 01/09/25 10:47 Pulse Oximetry 97 01/09/25 10:47 Temperature 39.3 C H 01/09/25 10:50 Temperature Source Oral 01/09/25 10:50 Pulse 87 01/09/25 13:08 Respiratory Rate 22 01/09/25 10:50 Blood Pressure 110/56 L 01/09/25 13:08 Blood Pressure Mean 74 01/09/25 13:08 Pulse Oximetry 97 01/09/25 13:08 Lab/Test Results Lab/Test Results: 01/09/25 11:05 Blood Blood Culture - Pending 01/09/25 11:20 Blood Blood Culture - Pending Laboratory Tests Range/Units 01/09/25 01/09/25 11:05 11:13 WBC (4.4-10.8) 10^3/uL 12.01 H RBC (3.93-5.22) 10^6/uL 4.74 Hgb (11.2-15.7) g/dL 13.1 Hct (36.0-46.0) % 41.2 MCV (80-95) fL 87 MCH (27.0-33.0) pg 27.6 MCHC (32.0-36.0) % 31.8 L RDW (11.7-14.6) % 14.1 Plt Count (130-400) 10^3/uL 282 MPV (8.0-11.0) fL 10.4 Immature Gran % % 0.3 Neutrophils % % 79.8 Lymphocytes % % 9.7 Monocytes % % 9.9 Eosinophils % % 0.1 Basophils % % 0.2 Nucleated RBC % (0.0-0.3) % 0.0 Absolute Neutrophils (1.2-6.7) 10^3/uL 9.58 H Absolute Lymphocytes (1.2-3.4) 10^3/uL 1.16 L Absolute Monocytes (0.1-0.8) 10^3/uL 1.19 H Absolute Eosinophils (0.0-0.7) 10^3/uL 0.01 Absolute Basophils (0.0-0.2) 10^3/uL 0.02 VBG pH (7.31-7.41) 7.39 VBG pCO2 (41-51) mmHg 44 VBG pO2 mmHg 31 VBG HCO3 (23-28) mmol/L 27 VBG Total CO2 (24-29) mmol/L 24 VBG O2 Saturation % 58 VBG Base Excess (-2-3) mmol/L 2 VBG Lactate (<or=2.0) mmol/L 1.4 Sodium (136-145) mmol/L 134 L Potassium (3.5-5.1) mmol/L 3.9 Chloride (98-107) mmol/L 98 Carbon Dioxide (21.0-32.0) mmol/L 28.6 Anion Gap (3-11) mmol/L 7.4 BUN (7-18) mg/dL 10 Creatinine (0.55-1.02) mg/dL 0.9 Est GFR (CKD-EPI 2020) (mL/min/1.73m2) 65.44 Glucose (74-106) mg/dL 134 H Calcium (8.5-10.1) mg/dL 9.0 Magnesium (1.8-2.4) mg/dL 2.0 Total Bilirubin (0.2-1.0) mg/dL 0.7 AST (15-37) U/L 29 ALT (14-59) U/L 18 Alkaline Phosphatase (46-116) U/L 109 Troponin I (<or=51) ng/L 6 Total Protein (6.4-8.2) g/dL 7.5 Albumin (3.4-5.0) g/dL 3.6 COVID-19 Source Nasopharynx SARS-CoV-2 (PCR) (Negative) Negative Influenza Type A (PCR) (Negative) Negative Influenza Type B (PCR) (Negative) Negative RSV (PCR) (Negative) Negative Medical Decision Making ASSESSMENT AND PLAN Initial Assessment: Patient presents with symptoms of cough, sore throat, fever. Patient with tachycardia and fever on arrival. Normotensive. She is saturating well and in no respiratory distress with intermittent cough. Concern for pneumonia versus COVID versus other. ED Course: - Administered IV fluids. Patient received 500 mL liter crystalloid bolus. - DuoNeb breathing treatment provided. - Provided Tylenol and ibuprofen for fever. - Reassessed vitals post-treatment. - Labs reviewed and leukocytosis noted. Normal lactate. No significant electrolyte abnormalities. Kidney function normal. COVID, flu, RSV negative. Final Assessment: 79-year-old female with idiopathic pulmonary fibrosis here with cough and fever. No evidence of pneumonia or severe infection. Treatment focused on symptom management and hydration. Given underlying pulmonary fibrosis, I will initiate treatment with doxycycline for bronchitis. Clinical Impression: - Bronchitis Disposition: - Discharge: Patient to rest and stay hydrated. - Follow-Up: Monitor symptoms for improvement over the next few days. Patient Education: Discussed the importance of hydration and rest. MDM Components Evaluation: - Number of Differential Diagnoses or Management Options: Bronchitis. - Amount and Complexity of Data Reviewed: Reviewed X-ray, blood work, and COVID- 19/flu test results. - Risk of Complication and Morbidity or Mortality: Low risk given negative imaging and lab results, but advised monitoring due to underlying pulmonary fibrosis and asthma. This document was written with the assistance of LUKAS Knott. The patient consented to its use. Lab Data Lab results reviewed: Yes I reviewed the patient's lab results. Labs: 01/09/25 11:05 Blood Blood Culture - Pending 01/09/25 11:20 Blood Blood Culture - Pending Laboratory Tests Range/Units 01/09/25 01/09/25 11:05 11:13 WBC (4.4-10.8) 10^3/uL 12.01 H RBC (3.93-5.22) 10^6/uL 4.74 Hgb (11.2-15.7) g/dL 13.1 Hct (36.0-46.0) % 41.2 MCV (80-95) fL 87 MCH (27.0-33.0) pg 27.6 MCHC (32.0-36.0) % 31.8 L RDW (11.7-14.6) % 14.1 Plt Count (130-400) 10^3/uL 282 MPV (8.0-11.0) fL 10.4 Immature Gran % % 0.3 Neutrophils % % 79.8 Lymphocytes % % 9.7 Monocytes % % 9.9 Eosinophils % % 0.1 Basophils % % 0.2 Nucleated RBC % (0.0-0.3) % 0.0 Absolute Neutrophils (1.2-6.7) 10^3/uL 9.58 H Absolute Lymphocytes (1.2-3.4) 10^3/uL 1.16 L Absolute Monocytes (0.1-0.8) 10^3/uL 1.19 H Absolute Eosinophils (0.0-0.7) 10^3/uL 0.01 Absolute Basophils (0.0-0.2) 10^3/uL 0.02 VBG pH (7.31-7.41) 7.39 VBG pCO2 (41-51) mmHg 44 VBG pO2 mmHg 31 VBG HCO3 (23-28) mmol/L 27 VBG Total CO2 (24-29) mmol/L 24 VBG O2 Saturation % 58 VBG Base Excess (-2-3) mmol/L 2 VBG Lactate (<or=2.0) mmol/L 1.4 Sodium (136-145) mmol/L 134 L Potassium (3.5-5.1) mmol/L 3.9 Chloride (98-107) mmol/L 98 Carbon Dioxide (21.0-32.0) mmol/L 28.6 Anion Gap (3-11) mmol/L 7.4 BUN (7-18) mg/dL 10 Creatinine (0.55-1.02) mg/dL 0.9 Est GFR (CKD-EPI 2020) (mL/min/1.73m2) 65.44 Glucose (74-106) mg/dL 134 H Calcium (8.5-10.1) mg/dL 9.0 Magnesium (1.8-2.4) mg/dL 2.0 Total Bilirubin (0.2-1.0) mg/dL 0.7 AST (15-37) U/L 29 ALT (14-59) U/L 18 Alkaline Phosphatase (46-116) U/L 109 Troponin I (<or=51) ng/L 6 Total Protein (6.4-8.2) g/dL 7.5 Albumin (3.4-5.0) g/dL 3.6 COVID-19 Source Nasopharynx SARS-CoV-2 (PCR) (Negative) Negative Influenza Type A (PCR) (Negative) Negative Influenza Type B (PCR) (Negative) Negative RSV (PCR) (Negative) Negative Quality:SDOH Health Related Social Needs: No Data to Display PFSH All Active Problems (Updated 01/09/25 @ 13:15 by Finesse Otoole MD) Acute bronchitis (Acute) Shoulder pain (Acute) Hypercholesterolemia (Chronic) Allergic rhinitis (Chronic) Attention deficit (Chronic) Shortness of breath (Chronic) IPF (idiopathic pulmonary fibrosis) (Chronic) GERD (gastroesophageal reflux disease) (Chronic) Balance problems (Chronic) Urinary frequency (Chronic 08/17/17) Fatigue (Chronic 07/12/02) Multiple extensive work ups without etiology Depressive disorder (Chronic) Constipation (Chronic 08/10/14) Bronchiolitis (Chronic) 02/11/16-[facility] 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 AVOID AZITHROMAX - SEE NOTE VJ 06/30/16 SOB Atrophic vaginitis (Chronic) Medical History Mycobacterial infection, atypical Mental status alteration Anorexia Weight loss (03/12/18) Insomnia Interstitial lung disease Abnormal chest CT Abdominal pain Falls frequently 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) Primary malignant neoplasm of cervix Malignant neoplasm of cervix uteri hyst;single ovary remains Benign neoplasm of skin of perineum benign lesion-resolved Abnormal laboratory test decreased cortisol w/retesting normal Mantoux: positive 12/03/07 Tear of left supraspinatus tendon (09/04/17) mri 09/03/17 Seborrheic keratoses (01/11/16) LEFT CHEEK, SCAPULA Low back pain (01/02/17) Insomnia Ear problem (12/03/07) PERFERATED EARDRUM Complete tear of right rotator cuff (12/12/17) Bruising (02/22/15) Depressive disorder Low back pain Insomnia Surgical History Status post abdominal hysterectomy Status post appendectomy Status post carpal tunnel release Status post hernia repair H/O bilateral salpingo-oophorectomy S/P abdominal hysterectomy one ovary remains S/P carpal tunnel release S/P hernia repair S/P appendectomy Ligation of fallopian tube BSO Open Carpal Tunnel release Abdominal hysterectomy single ovary remains HERNIA REPAIR Colonoscopy - MAC (10/05/17) Colonoscopy - MAC (~2006) Appendectomy Family History Mother , 2 Emphysema of lung Stroke COPD (chronic obstructive pulmonary disease) Asthma Father , 85 Lung cancer Brother , 85 COPD (chronic obstructive pulmonary disease) Lung cancer Maternal Grandfather No problems noted. Paternal Grandfather No problems noted. Maternal Grandmother No problems noted. Paternal Grandmother No problems noted. Brother , 70 Diabetes Colon cancer Sister , 80 Diabetes Lung cancer Sister , 81 Cancer Social History Smoking/Tobacco Use Status: Never Second Hand Exposure: Yes Smoking risk assessment performed?: Yes Alcohol Intake: former Drug use: Never Substance use type: does not use Household members: spouse Housing: house Do you need help understanding health information?: Often Pets and animals: Yes Pets and animals: cat(s) Sexually active: Yes Do you think of yourself as: straight/heterosexual What is your relationship status?: How often do you talk on the phone with friends or family?: twice per week How often do you get together with friends or relatives?: once per week How often do you attend moravian or bahai services?: decline to answer Do you belong to any clubs or organized social groups?: no Panel score (0-1 are the most socially isolated patients): 2 What type of physical activity do you participate in: walking Duration: 30-45 minutes/day Frequency: 3-4 times per week Annelise/Jain: No preference Special annelise needs: No Seatbelt use: always Drive intox or ride w/intox route delivery driver: No Do you feel safe at home: Yes Do you feel safe in your relationship?: Yes
[2025-01-09] MEDS: Doxycycline Hyclate 100 MG CAP PO (13:13)
== END 2025-01-09 13:31 | disposition home or self-care (01) ==
PROVIDERS: Emergency Provider Student in an Organized Health Care Education/Training Program; PCP Family Medicine
DX: J20.9 Acute bronchitis, unspecified (principal); J84.112 Idiopathic pulmonary fibrosis; Z79.899 Other long term (current) drug therapy
CPT/HCPCS: 80053; 82805; 87040; 87637; 93005; 94640; 96360; 99285; 71046; 83605; 83735; 84484; 85025; 93010; 99284; J7620

== ENCOUNTER 2025-02-17 01:38 | Outpatient (CLI) | payer MEDICARE, SELFPAY ==
--- NOTE | 2025-02-17 09:12 | DI.CT_ITS ---
Exam(s) CT CHEST WO EXAM: CT CHEST WO CLINICAL HISTORY: continued cough,bronchiolitis,j21.9. TECHNIQUE: Multi planar reconstructions were performed. CONTRAST MATERIAL: None COMPARISON: CT CT CHEST WO from 04/03/2024 CR XR CHEST 2V PA LATERAL from 01/09/2025 FINDINGS: CHEST: LUNGS: There are no confluent infiltrates nor pleural effusions and there are no ominous pulmonary nodules. However, there is again noted bilateral interstitial fibrosis pattern. The appearance is relatively stable when compared to March [address]24 CT scan. There is no gross bronchiectasis. There is no mucous plugging in the bronchial tree of either lung. MEDIASTINUM: There is no gross hilar adenopathy. Subcarinal region appears unchanged. There is no adenopathy in in the anterior mediastinal fat. Visualized thyroid unremarkable.No supraclavicular adenopathy. No axillary adenopathy. CARDIAC: Heart size is normal. There is mild thickening of the anterior left pericardium noted with maximum thickness 5 mm, unchanged from March 2024. There is no large pericardial effusion.Caliber of the thoracic aorta is within normal limits. VISUALIZED UPPER ABDOMEN:No adrenal masses. No splenomegaly. Tiny cyst noted in the liver. No ascites. OSSEOUS: No significant osseous lesions.No fractures.. IMPRESSION: 1. Stable appearance of bilateral interstitial fibrosis pattern when compared to the prior CT scan of 04/03/2024. There does not appear to be significant progression and there are no superimposed infiltrates nor pleural effusions nor ominous pulmonary nodules. RADIATION DOSE DELIVERED: 150.55mGy.cm Total DLP DATA REPOSITORY: All CT scans at this facility are submitted to the National Radiology Data Registry (NRDR) Dose Index Registry (DIR) with the [employer] (A[employer]). RADIATION OPTIMIZATION: All CT scans at this facility use at least one of these dose optimization techniques: automated exposure control; mA and/or kV adjustment per patient size (includes targeted exams where dose is matched to clinical indication); or iterative reconstruction.
== END 2025-02-17 01:58 ==
LOC: DI 01:38
PROVIDERS: PCP Family Medicine; Visit Provider Family Medicine
DX: J21.9 Acute bronchiolitis, unspecified (principal)
CPT/HCPCS: 71250

== ENCOUNTER → 2025-02-25 09:42 | Outpatient (BNVA) | payer MEDICARE, SELFPAY | PROVIDERS: PCP Family Medicine; Referring Provider Family Medicine; Visit Provider Internal Medicine Pulmonary Disease | DX: J84.9 Interstitial pulmonary disease, unspecified (principal); A31.0 Pulmonary mycobacterial infection; J45.40 Moderate persistent asthma, uncomplicated; Z23 Encounter for immunization; K21.9 Gastro-esophageal reflux disease without esophagitis | CPT/HCPCS: 99215; 90471; 90684 ==

== ENCOUNTER 2025-03-23 01:35 | Outpatient (CLI) | payer MEDICARE, SELFPAY ==
--- NOTE | 2025-03-23 06:45 | DI.RAD_ITS ---
Exam(s) XR SHOULDER RT COMPLETE 2+V EXAM: XR SHOULDER RT COMPLETE 2+V CLINICAL HISTORY: right shoulder pain, non traumatic, >1 month,[id number]. TECHNIQUE: 2D digital imaging was performed. Five views. COMPARISON: CR XR SHOULDER RT COMPLETE 2+V from 10/23/[address] CHEST WO from 02/17/2025 FINDINGS: BONES: No acute fracture is present. No bony destructive lesion is seen. Prior distal clavicular resection. spurring at greater tuberosity. JOINTS: No dislocation present. Glenohumeral joint space is maintained. No significant periarticular spurring. SOFT TISSUE: Normal. IMPRESSION: No acute abnormality. DATA REPOSITORY: RADIATION DOSE DELIVERED:
== END 2025-03-23 01:55 ==
LOC: DI 01:35
PROVIDERS: PCP Family Medicine; Visit Provider Nurse Practitioner Acute Care
DX: M25.511 Pain in right shoulder (principal)
CPT/HCPCS: 73030

== ENCOUNTER 2025-05-01 11:48 | Emergency (ER) | payer MEDICARE, SELFPAY ==
--- NOTE | 2025-05-01 11:45 | RT.EKG_ITS ---
APPROVED REPORT Exam: Resting ECG Reason for Exam: chest pain Patient Location: E HR:93 bpm ECG Measurements Heart Rate 93 AXIS MO 142 P -34 QRSd 83 QRS 14 QT 331 T 39 QTc 411 Conclusion Sinus rhythm...normal P axis, V-rate 60- 99 No Stemi
[2025-05-01 11:58] VITALS: BP 127/77; PULSE 96; RESP 18; TEMP 36.9; O2SAT 95
[2025-05-01 12:04] VITALS: BP 127/77; PULSE 96; RESP 18; TEMP 36.9; O2SAT 95
--- NOTE | 2025-05-01 12:15 | DI.RAD_ITS ---
Exam(s) XR CHEST 2V PA LATERAL EXAM: XR CHEST 2V PA LATERAL CLINICAL HISTORY: Chest pain, SOB TECHNIQUE: 2D digital imaging was performed of the chest. Two images were obtained. PA and lateral views were obtained. COMPARISON: CR XR CHEST 2V PA LATERAL from 01/09/2025 FINDINGS: MEDIASTINUM: Normal. HEART: Normal. PULMONARY VASCULATURE: Normal. LUNGS: There are no focal consolidating infiltrates. PLEURAL SPACE: No pleural effusion or pneumothorax. BONE:Within normal limits for the patient's age. OTHER FINDINGS:Normal. IMPRESSION: No acute pulmonary findings. DATA REPOSITORY: RADIATION DOSE DELIVERED:
--- NOTE | 2025-05-01 12:18 | W.ED.GENAD ---
Discharge Plan Disposition Patient Disposition: Home Condition: Stable Discharge Details Clinical Impression: URI (upper respiratory infection), Chest pain Primary Care Provider: Carrie Mejias ED Provider: Trish Hernandez Home Meds and New Rx's Prescriptions: New azithromycin 250 mg tablet See Rx Instructions .ROUTE .COMPLEX 6 Days Qty: 6 0RF Rx Instructions: For 250 mg dose pack: take 500 mg today (day 1), then 250 mg for 4 days (days 2-5) Continued garlic [garlic oil] 1,000 mg capsule 2,000 mg PO DAILY ipratropium-albuterol 0.5 mg-3 mg(2.5 mg base)/3 mL solution for nebulization 3 ml inhalation Q6H PRN (Reason: wheezing) Qty: 180 1RF Rx Instructions: COPD, bronchioectasis albuterol sulfate 5 mg/mL solution for nebulization 5 mg inhalation QID PRN (Reason: shortness of breath or wheezing) Qty: 600 4RF montelukast 10 mg tablet 10 mg PO DAILY Qty: 90 4RF albuterol sulfate 90 mcg/actuation HFA aerosol inhaler 2 puff Inhalation Q4H PRN Qty: 1 12RF losartan 50 mg tablet 50 mg PO DAILY Qty: 90 4RF celecoxib [Celebrex] 100 mg capsule 100 mg PO BID Qty: 30 0RF PEAK FLOW METER Rx Instructions: USE WHEN YOUR BREATHING WORSENS ibuprofen 600 mg tablet 600 mg PO BID PRN (Reason: pain) Qty: 60 1RF fluconazole 150 mg tablet 150 mg PO QWEEK PRN (Reason: yeast) Qty: 12 4RF estradiol [Yuvafem] 10 mcg tablet 10 mcg VG .3 times weekly Qty: 36 4RF omeprazole 40 mg capsule,delayed release(DR/EC) 40 mg PO BID Qty: 60 12RF acetaminophen [Acetaminophen Extra Strength] 500 mg tablet 1,000 mg PO TID PRN PRN (Reason: pain) Qty: 100 6RF Dulera 200-5 mcg/actuation HFA aerosol inhaler 2 puff inhalation BID Qty: 13 6RF psyllium Packet 1 packet PO BID cyanocobalamin (vitamin B-12) 5,000 mcg Capsule 5,000 mcg PO DAILY Discharge Instructions Instructions: Upper Respiratory Infection ED Additional Instructions: At this time no evidence of pneumonia on chest x-ray, no evidence of heart attack or cardiac abnormality. I do suspect a URI. Please take the antibiotic as prescribed 2 tablets on the first day and then 1 a day for the next 4 days. Please have close follow-up with your primary care provider. Negative for COVID flu or RSV Vomiting, please discuss further cardiac testing including a echocardiogram or stress test if deemed necessary by your primary care provider. Follow up with primary care provider in 3-5 days. Return to ED sooner if any worsening chest pain, shortness of breath, fever greater than 100.8 or concerns. Thank you for allowing us to care for you today. Referrals: Carrie Mejias MD, [place] [Primary Care Provider, Medicine] - 1 week Referral Note: ER follow-up, call for an appointment. Clinical Impression: URI (upper respiratory infection) HPI General Mode of arrival: ambulatory. Date/Time Provider Initiated Documentation: 05/01/25 12:18. Limitations to Documentation: no limitations. Information obtained by: patient, RN notes reviewed and old records reviewed. HPI Narrative: 80-year-old female presents to the ER with a chief complaint of right ear pain, sore throat and chest pain which began this morning while at physical therapy. Patient also endorses some shortness of breath. She describes the pain as a heaviness, midsternal no radiation. She also states it hurts to take a deep breath. Denies any recent falls or injuries. Has been taking Tylenol PM for her symptoms. Denies any productive cough or sick contacts. She does have a past medical history of high cholesterol, GERD, insomnia manage 2 positive in , anorexia, interstitial lung disease, bronchiolitis, Related Data Home Medications ?Medication ?Instructions ?Recorded ?Confirmed Peak Flow Meter 10/29/12 03/26/25 cyanocobalamin (vitamin B-12) 5,000 mcg PO DAILY 03/23/21 05/01/25 5,000 mcg capsule psyllium 1 packet PO BID 03/23/21 05/01/25 garlic 1,000 mg capsule (garlic 2,000 mg PO DAILY 06/05/22 05/01/25 oil) ibuprofen 600 mg tablet 600 mg PO BID PRN pain #60 tabs 06/11/23 05/01/25 albuterol sulfate 90 mcg/actuation 2 puff inhalation Q4H PRN ##1 05/20/24 05/01/25 aerosol inhaler fluconazole 150 mg tablet 150 mg PO QWEEK PRN yeast #12 tabs 06/12/24 05/01/25 estradiol 10 mcg vaginal tablet 10 mcg vaginal .3 times weekly #36 06/19/24 05/01/25 (Yuvafem) tabs losartan 50 mg tablet 50 mg PO DAILY #90 tabs 07/17/24 05/01/25 albuterol sulfate 5 mg/mL(0.5 %) 5 mg inhalation QID PRN shortness 08/18/24 05/01/25 solution for nebulization of breath or wheezing #600 mL omeprazole 40 mg capsule,delayed 40 mg PO BID #60 caps 08/20/24 05/01/25 release ipratropium 0.5 mg-albuterol 3 mg 3 ml inhalation Q6H PRN wheezing 10/21/24 05/01/25 (2.5 mg base)/3 mL nebulization #180 mL soln acetaminophen 500 mg tablet 1,000 mg (2 x 500 mg) PO TID PRN 12/05/24 05/01/25 (Acetaminophen Extra Strength) PRN pain #100 tabs montelukast 10 mg tablet 10 mg PO DAILY #90 tabs 02/05/25 05/01/25 celecoxib 100 mg capsule (Celebrex) 100 mg PO BID #30 caps 03/19/25 05/01/25 mometasone-formoterol HFA 200 2 puff inhalation BID #13 grams 04/15/25 05/01/25 mcg-5 mcg/actuation aerosol inhaler (Dulera) azithromycin 250 mg tablet See Rx Instructions PO .COMPLEX 05/01/25 URI 6 days #6 tabs Previous Rx's ?Medication ?Instructions ?Recorded ibuprofen 600 mg tablet 600 mg PO BID PRN pain #60 tabs 06/11/23 albuterol sulfate 90 mcg/actuation 2 puff inhalation Q4H PRN ##1 05/20/24 aerosol inhaler fluconazole 150 mg tablet 150 mg PO QWEEK PRN yeast #12 tabs 06/12/24 estradiol 10 mcg vaginal tablet 10 mcg vaginal .3 times weekly #36 06/19/24 (Yuvafem) tabs losartan 50 mg tablet 50 mg PO DAILY #90 tabs 12/05/24 albuterol sulfate 5 mg/mL(0.5 %) 5 mg inhalation QID PRN shortness 08/18/24 solution for nebulization of breath or wheezing #600 mL omeprazole 40 mg capsule,delayed 40 mg PO BID #60 caps 08/20/24 release ipratropium 0.5 mg-albuterol 3 mg 3 ml inhalation Q6H PRN wheezing 10/21/24 (2.5 mg base)/3 mL nebulization #180 mL soln acetaminophen 500 mg tablet 1,000 mg (2 x 500 mg) PO TID PRN 12/05/24 (Acetaminophen Extra Strength) PRN pain #100 tabs montelukast 10 mg tablet 10 mg PO DAILY #90 tabs 02/05/25 celecoxib 100 mg capsule (Celebrex) 100 mg PO BID #30 caps 03/19/25 mometasone-formoterol HFA 200 2 puff inhalation BID #13 grams 04/15/25 mcg-5 mcg/actuation aerosol inhaler (Dulera) azithromycin 250 mg tablet See Rx Instructions PO .COMPLEX 05/01/25 URI 6 days #6 tabs Allergies Allergy/AdvReac Type Severity Reaction Status Date / Time clavulanic acid (From Allergy Severe unknown Verified 05/01/25 12:03 Augmentin) tuberculin, purified protein Allergy Unknown unknown Verified 05/01/25 12:03 deriva bupropion AdvReac AGITATION Verified 05/01/25 12:03 codeine AdvReac NAUSEA/VOMI Verified 05/01/25 12:03 TING Esbriet Allergy Intermediate Hives Uncoded 05/01/25 12:03 General Stated Complaint: Sorethroat MEI: 3 Review of Systems All systems reviewed & are unremarkable except as noted in HPI and below Constitutional Constitutional: Reports as per HPI and Reports body ache(s) ENT Ears, Nose, Mouth, and Throat: Reports as per HPI, Reports otalgia and Reports sore throat Cardiovascular Cardiovascular: Reports chest pain, Reports chest pain at rest, Denies syncope, Denies rapid heart rate, Denies pedal edema, Denies lightheadedness, Denies radiating jaw, neck or arm pain, Denies palpitations and Reports dyspnea Respiratory Respiratory: Denies cough, Denies hemoptysis, Denies excessive phlegm production and Reports dyspnea Neurologic Neurologic: Denies syncope Endocrine Endocrine: Denies palpitations Exam Narrative Exam Narrative: Constitutional: Alert and oriented x3. Appears stated age. Normal body habitus. Head: Normocephalic, no trauma. Eyes: Pupils PERRL, Red reflex noted, EOM's intact. Eyelids symmetrical without lesions, discharge, or swelling. ENT: Bilateral TM's have chronic appearing scar tissue, right TM appear retracted slightly erythemic, no bulging, external ear normal to inspection, no mastoid TTP, swelling, or erythema, Nasal turbinates WNL, no nasal discharge. Normal dentition, Posterior pharynx WNL, no exudate. Chest: RRR, Normal S1, S2, distal pulses intact. Resp: Lungs clear to auscultation bilaterally, no wheezes, rales, or rhonchi. Abdomen: Soft, non-distended, Normoactive bowel sounds all 4 quads. Musculoskeletal: Normal gait, Moves all 4 extremities without difficulty. Skin: No suspicious rashes or lesions. Capillary refill less than 2 sec. Neurologic: Cranial nerves II-XII intact. Alert and oriented x 3. Motor: No deficits noted. Sensory: Intact bilaterally all 4 extremities. Hematologic/Lymphatic: No ecchymosis, no lymphadenopathy. Course Vital Signs Vital signs: Vital Signs Temperature 36.9 C 05/01/25 11:58 Pulse 96 H 05/01/25 11:58 Respiratory Rate 18 05/01/25 11:58 Blood Pressure 127/77 05/01/25 11:58 Pulse Oximetry 95 05/01/25 11:58 Temperature 36.9 C 05/01/25 12:04 Pulse 96 H 05/01/25 12:04 Respiratory Rate 18 05/01/25 12:04 Blood Pressure 127/77 05/01/25 12:04 Pulse Oximetry 95 05/01/25 12:04 Medical Decision Making 80-year-old female presents to the ER with a chief complaint of right ear pain, sore throat and chest pain which began this morning while at physical therapy. Patient also endorses some shortness of breath. She describes the pain as a heaviness, midsternal no radiation. She also states it hurts to take a deep breath. Denies any recent falls or injuries. Has been taking Tylenol PM for her symptoms. Denies any productive cough or sick contacts. She does have a past medical history of high cholesterol, GERD, insomnia manage 2 positive in , anorexia, interstitial lung disease, bronchiolitis, EKG was reviewed by Dr. Ceorn and myself ER attending, old EKG available for review. No evidence for STEMI on the EKG at this time. Please see official report. Cardiac workup ordered including CBC CMP, serial troponins, chest x-ray, Fluvid swab At this time x-ray shows no evidence of pneumonia, serial troponins are negative, initial troponin 5 serial 1 hour troponin 4 which is downtrending, CBC shows white blood cell count of 11.23 which is slightly elevated, mild left shift, sodium 136 potassium 4.0 proBNP slightly elevated at 542. COVID flu and RSV negative. I do suspect viral URI, no evidence for SC at this time. No evidence for significant CHF exacerbation. Due to the leukocytosis and complaints of right ear pain and throat pain we will go ahead and place patient on azithromycin Z-Vignesh. Will encourage close follow-up with PCP and discuss strict return instructions. This text was generated using [employer] system, please disregard any oddities of phrase or misspellings. Medical Records Medical records reviewed: Yes I reviewed the patient's medical records. Imaging Data Radiologic Study: Imaging: X-Ray Radiologist's impression: XR CHEST 2V PA LATERAL EXAM: XR CHEST 2V PA LATERAL CLINICAL HISTORY: Chest pain, SOB TECHNIQUE: 2D digital imaging was performed of the chest. Two images were obtained. PA and lateral views were obtained. COMPARISON: CR XR CHEST 2V PA LATERAL from 01/09/2025 FINDINGS: MEDIASTINUM: Normal. HEART: Normal. PULMONARY VASCULATURE: Normal. LUNGS: There are no focal consolidating infiltrates. PLEURAL SPACE: No pleural effusion or pneumothorax. BONE:Within normal limits for the patient's age. OTHER FINDINGS:Normal. IMPRESSION: No acute pulmonary findings. Lab Data Lab results reviewed: Yes I reviewed the patient's lab results. Labs: Laboratory Tests Range/Units 05/01/25 05/01/25 05/01/25 12:40 12:54 13:30 WBC (4.4-10.8) 10^3/uL 11.23 H RBC (3.93-5.22) 10^6/uL 4.86 Hgb (11.2-15.7) g/dL 13.0 Hct (36.0-46.0) % 40.9 MCV (80-95) fL 84 MCH (27.0-33.0) pg 26.7 L MCHC (32.0-36.0) % 31.8 L RDW (11.7-14.6) % 13.2 Plt Count (130-400) 10^3/uL 289 MPV (8.0-11.0) fL 9.5 Immature Gran % % 0.4 Neutrophils % % 77.3 Lymphocytes % % 9.6 Monocytes % % 11.8 Eosinophils % % 0.5 Basophils % % 0.4 Nucleated RBC % (0.0-0.3) % 0.0 Absolute Neutrophils (1.2-6.7) 10^3/uL 8.68 H Absolute Lymphocytes (1.2-3.4) 10^3/uL 1.08 L Absolute Monocytes (0.1-0.8) 10^3/uL 1.33 H Absolute Eosinophils (0.0-0.7) 10^3/uL 0.06 Absolute Basophils (0.0-0.2) 10^3/uL 0.04 PT (9.1-11.1) sec 9.7 INR (0.9-1.1) 1.0 Sodium (136-145) mmol/L 136 Potassium (3.5-5.1) mmol/L 4.0 Chloride (98-107) mmol/L 98 Carbon Dioxide (21.0-32.0) mmol/L 30.0 Anion Gap (3-11) mmol/L 8.0 BUN (7-18) mg/dL 12 Creatinine (0.55-1.02) mg/dL 0.8 Est GFR (CKD-EPI 2020) (mL/min/1.73m2) 74.90 Glucose (74-106) mg/dL 100 Calcium (8.5-10.1) mg/dL 9.2 Total Bilirubin (0.2-1.0) mg/dL 0.7 AST (15-37) U/L 24 ALT (14-59) U/L 20 Alkaline Phosphatase (46-116) U/L 112 Troponin I (<or=51) ng/L 5 4 NT-Pro-B Natriuret Pep (<300) pg/mL 542 H Total Protein (6.4-8.2) g/dL 7.7 Albumin (3.4-5.0) g/dL 3.9 COVID-19 Source Nasopharynx SARS-CoV-2 (PCR) (Negative) Negative Influenza Type A (PCR) (Negative) Negative Influenza Type B (PCR) (Negative) Negative RSV (PCR) (Negative) Negative PFSH All Active Problems (Updated 05/01/25 @ 14:56 by Trish Hernandez, SHARMAINE) Chest pain (Acute) URI (upper respiratory infection) (Acute) Edema leg (Acute) Moderate persistent asthma (Acute) 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) Interstitial lung disease (Acute) Shoulder pain (Acute) Hypercholesterolemia (Chronic) Allergic rhinitis (Chronic) Attention deficit (Chronic) Shortness of breath (Chronic) IPF (idiopathic pulmonary fibrosis) (Chronic) GERD (gastroesophageal reflux disease) (Chronic) Balance problems (Chronic) Urinary frequency (Chronic 08/17/17) Fatigue (Chronic 07/12/02) Multiple extensive work ups without etiology Depressive disorder (Chronic) Constipation (Chronic 08/10/14) Bronchiolitis (Chronic) 02[facility]11[facility] 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 AVOID AZITHROMAX - SEE NOTE VJ 06/30/16 SOB Atrophic vaginitis (Chronic) Medical History Mycobacterial infection, atypical Mental status alteration Anorexia Weight loss (03/12/18) Insomnia Abnormal chest CT Abdominal pain Falls frequently 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) Primary malignant neoplasm of cervix Malignant neoplasm of cervix uteri hyst;single ovary remains Benign neoplasm of skin of perineum benign lesion-resolved Abnormal laboratory test decreased cortisol w/retesting normal Mantoux: positive 12/03/07 Tear of left supraspinatus tendon (09/04/17) mri 09/03/17 Seborrheic keratoses (01/11/16) LEFT CHEEK, SCAPULA Low back pain (01/02/17) Insomnia Ear problem (12/03/07) PERFERATED EARDRUM Complete tear of right rotator cuff (12/12/17) Bruising (02/22/15) Depressive disorder Low back pain Insomnia Surgical History Status post abdominal hysterectomy Status post appendectomy Status post carpal tunnel release Status post hernia repair H/O bilateral salpingo-oophorectomy S/P abdominal hysterectomy one ovary remains S/P carpal tunnel release S/P hernia repair S/P appendectomy Ligation of fallopian tube BSO Open Carpal Tunnel release Abdominal hysterectomy single ovary remains HERNIA REPAIR Colonoscopy - MAC (10/05/17) Colonoscopy - MAC (~2006) Appendectomy Family History Mother , 2 Emphysema of lung Stroke COPD (chronic obstructive pulmonary disease) Asthma Father , 85 Lung cancer Brother , 85 COPD (chronic obstructive pulmonary disease) Lung cancer Maternal Grandfather No problems noted. Paternal Grandfather No problems noted. Maternal Grandmother No problems noted. Paternal Grandmother No problems noted. Brother , 70 Diabetes Colon cancer Sister , 80 Diabetes Lung cancer Sister , 81 Cancer Social History Smoking/Tobacco Use Status: Never Second Hand Exposure: Yes Smoking risk assessment performed?: Yes Alcohol Intake: former Drug use: Never Substance use type: does not use Household members: spouse Housing: house Do you need help understanding health information?: Often Pets and animals: Yes Pets and animals: cat(s) Sexually active: Yes Do you think of yourself as: straight/heterosexual What is your relationship status?: How often do you talk on the phone with friends or family?: twice per week How often do you get together with friends or relatives?: once per week How often do you attend christianity or sabianist services?: decline to answer Do you belong to any clubs or organized social groups?: no Panel score (0-1 are the most socially isolated patients): 2 What type of physical activity do you participate in: walking Duration: 30-45 minutes/day Frequency: 3-4 times per week Annelise/Confucianist: No preference Special annelise needs: No Seatbelt use: always Drive intox or ride w/intox trash truck driver: No Do you feel safe at home: Yes Do you feel safe in your relationship?: Yes
[2025-05-01] MEDS: Aspirin 81 MG CHEW 324 MG CH (12:30)
[2025-05-01 12:48] LABS: Abs Immature Grans 0.04 10^3/uL (0.0-0.06); HCT 40.9 % (36.0-46.0); HGB 13.0 g/dL (11.2-15.7); Immature Grans % 0.4 %; MCH 26.7 pg (27.0-33.0); MCHC 31.8 % (32.0-36.0); MCV 84 fL (80-95); MPV 9.5 fL (8.0-11.0); Platelet Count 289 10^3/uL (130-400); RBC 4.86 10^6/uL (3.93-5.22); RDW 13.2 % (11.7-14.6); RDW-SD 40.7 fL; WBC 11.23 10^3/uL (4.4-10.8)
[2025-05-01 12:58] LABS: INR 1.0 (0.9-1.1); Prothrombin Time 9.7 sec (9.1-11.1)
[2025-05-01 13:04] LABS: ALT 20 U/L (14-59); AST 24 U/L (15-37); Albumin 3.9 g/dL (3.4-5.0); Alkaline Phosphatase 112 U/L (46-116); Anion Gap 8.0 mmol/L (3-11); BUN 12 mg/dL (7-18); Bilirubin, Total 0.7 mg/dL (0.2-1.0); CO2 30.0 mmol/L (21.0-32.0); Calcium 9.2 mg/dL (8.5-10.1); Chloride 98 mmol/L (98-107); Estimated GFR 74.90 (mL/min/1.73m2); Glucose 100 mg/dL (74-106); Potassium 4.0 mmol/L (3.5-5.1); Sodium 136 mmol/L (136-145); Total Protein 7.7 g/dL (6.4-8.2)
[2025-05-01 13:11] LABS: NT-proBNP 542 pg/mL (<300); Troponin I 5 ng/L (<or=51)
[2025-05-01 13:37] LABS: COVID-19 PCR Negative (Negative); RSV PCR Negative (Negative)
[2025-05-01 13:54] LABS: Troponin I 4 ng/L (<or=51)
[2025-05-01 15:04] VITALS: BP 129/76; PULSE 98; RESP 18; O2SAT 100
== END 2025-05-01 15:08 | disposition home or self-care (01) ==
PROVIDERS: Emergency Provider Registered Nurse Emergency; PCP Family Medicine
DX: J06.9 Acute upper respiratory infection, unspecified (principal); R07.9 Chest pain, unspecified
CPT/HCPCS: 99284 ×2; 36415; 80053; 87637; 93005; 71046; 83880; 84484; 85025; 85610; 93010

== ENCOUNTER 2025-08-03 14:07 | Outpatient (CLI) | payer MEDICARE, SELFPAY ==
[2025-08-03 16:17] LABS: Abs Immature Grans 0.02 10^3/uL (0.0-0.06); HCT 36.3 % (36.0-46.0); HGB 11.7 g/dL (11.2-15.7); Immature Grans % 0.3 %; MCH 27.7 pg (27.0-33.0); MCHC 32.2 % (32.0-36.0); MCV 86 fL (80-95); MPV 10.7 fL (8.0-11.0); Platelet Count 292 10^3/uL (130-400); RBC 4.22 10^6/uL (3.93-5.22); RDW 14.4 % (11.7-14.6); RDW-SD 45.3 fL; WBC 7.73 10^3/uL (4.4-10.8)
[2025-08-03 16:42] LABS: ALT 14 U/L (10-49); AST 29 U/L (<34); Albumin 4.2 g/dL (3.2-5.0); Alkaline Phosphatase 114 U/L (46-116); Anion Gap 8.9 mmol/L (3-11); BUN 13 mg/dL (9-23); Bilirubin, Total 0.3 mg/dL (0.2-1.2); CO2 27.1 mmol/L (20.0-31.0); Calcium 8.9 mg/dL (8.3-10.6); Chloride 99 mmol/L (98-107); Glucose 85 mg/dL (74-106); Potassium 4.4 mmol/L (3.5-5.1); Sodium 135 mmol/L (136-145); Total Protein 6.8 g/dL (5.7-8.2)
== END 2025-08-03 14:08 | disposition home or self-care (01) ==
LOC: LOS 14:08
PROVIDERS: PCP Family Medicine; Visit Provider Family Medicine
DX: R06.02 Shortness of breath (principal); I10 Essential (primary) hypertension
CPT/HCPCS: 36415; 80053; 85025